=== PATIENT | male | born 1970 | race Caucasian/White ===

== ENCOUNTER 2017-09-03 21:06 | Emergency (ER) | payer MEDICAID ==
[2017-09-03 21:24] VITALS: BP 144/88; PULSE 101; RESP 16; TEMP 99.5; O2SAT 97
--- NOTE | 2017-09-03 21:30 | EDPHY ---
H & P Time Seen by Provider: 09/03/17 21:11 HPI/ROS: CHIEF COMPLAINT: Leg infection HISTORY OF PRESENT ILLNESS: Patient is a 46-year-old male with a history of diabetes and homeless who presents emergency department with a right leg infection. Patient states he has noticed some mild pain on his right calf. Today when he arrived showed 3 lifted up his pant leg and saw an area of redness. This is painful to touch. He denies any recent trauma. He does not recall insect bite. He denies fevers or chills. REVIEW OF SYSTEMS: My complete review of systems is negative except as mentioned in the HPI. Past Medical/Surgical History: Includes diabetes, [place] embolus Past surgical history: Includes [place] filter placement Social history: The patient is homeless Physical Exam: Vitals noted General Appearance: Alert and no distress. Head: Pupils equal. Normal. Respiratory: No respiratory distress. Cardiac: regular rate and rhythm. Extremities: Full range of motion, normal appearing. Skin: The patient has a quarter-size area of erythema on his right calf. There is all punctate lesion in the center. There is no palpable fluctuance. No streaking up the leg. It is mildly warm to touch. Neuro: Alert. Normal mood and affect. Constitutional: Initial Vital Signs Temperature (C) 37.5 C 09/03/17 21:18 Heart Rate 101 H 09/03/17 21:18 Respiratory Rate 16 09/03/17 21:18 Blood Pressure 144/88 H 09/03/17 21:18 O2 Sat (%) 97 09/03/17 21:18 O2 Delivery Mode Room Air Allergies/Adverse Reactions: No Known Allergies Allergy (Unverified 09/03/17 21:15) Home Medications: Medication Instructions Recorded Cephalexin [Keflex (*)] 500 mg PO QID 10 Days cap 09/03/17 Sulfamethox/Tmp 800/160 mg 1 tab PO BID #20 tab 09/03/17 [Bactrim Ds] Medical Decision Making ED Course/Re-evaluation: I discussed possible etiologies with the patient. I answered all his questions. At this time I do not feel he needs the area I&D. The patient will be given dose of Bactrim and Keflex. He will be given prescriptions for both. He is given warnings prior to leaving. He will return with worsening symptoms. Differential Diagnosis: My differential includes but is not limited to cellulitis, abscess, bug bite, bacteremia, sepsis Departure - Departure Disposition: Home, Routine, Self-Care Clinical Impression: Cellulitis Qualifiers: Site of cellulitis: extremity Site of cellulitis of extremity: lower extremity Laterality: right Qualified Code(s): L03.115 - Cellulitis of right lower limb Condition: Good Instructions: Cellulitis (ED) Additional Instructions: Take your course of antibiotics. Return with increasing redness, swelling, pain , fever or any other concerns. Referrals: [facility],. [Clinic] - 3-4 days, if not improved Prescriptions: Cephalexin [Keflex (*)] 500 mg PO QID 10 Days cap Sulfamethox/Tmp 800/160 mg [Bactrim Ds] 1 tab PO BID #20 tab
[2017-09-03] MEDS ORDERED: CEPHALEXIN 500MG PREPACK#4 BTL TAKEHOME ONE (21:40)
[2017-09-03] MEDS ORDERED: SULFAMET/TMP DS PREPACK#2 BTL TAKEHOME ONE (21:41)
== END 2017-09-03 21:59 | disposition home or self-care (01) ==
DX: L03.115 Cellulitis of right lower limb (principal); E11.9 Type 2 diabetes mellitus without complications

== ENCOUNTER 2017-12-13 07:57 | Emergency (ER) | payer MEDICAID ==
[2017-12-13 08:01] VITALS: BP 132/84
[2017-12-13] MEDS ORDERED: CEPHALEXIN 500 MG CAP PO ONE (08:05)
--- NOTE | 2017-12-13 08:05 | EDPHY ---
H & P Time Seen by Provider: 12/13/17 08:02 HPI/ROS: CHIEF COMPLAINT: Hand pain HISTORY OF PRESENT ILLNESS: Patient is a 46-year-old male who presents to the emergency department in the custody of police. The patient states that his right hand is red from a spider bite. He states he has been that way for couple of days. He is concerned he has an infection. No fevers or chills. Patient previously had an infection in his right index finger which required lancing. The patient reports being a diabetic but not on any medication. EMS reports the glucose is 131. REVIEW OF SYSTEMS: My complete review of systems is negative except as mentioned in the HPI. Past Medical/Surgical History: Includes diabetes, hand infection Social history: Patient is homeless Smoking Status: Current some day smoker Physical Exam: Vitals noted GENERAL: No acute distress, alert. Interactive HEENT: Eyes normal to inspection, normal pharynx, no signs of dehydration. NECK: [No lymphadenopathy, supple. RESPIRATORY: Clear to auscultation bilaterally, no rales, rhonchi or wheezing. CVS: Regular rate and rhythm, no rubs, murmurs, or gallops. ABDOMEN: Soft, nontender, nondistended, no organomegaly. BACK: Normal to inspection, no CVA tenderness. SKIN: Normal color, no rash, warm, dry. No pallor. EXTREMITIES: No pedal edema, no calf tenderness, no Homans sign or cords, no joint swelling. Patient's right hand has mild swelling over the dorsal aspect. There is a small punctate lesion. There is no streaking up his arm. Patient has no discomfort with movement of his fingers. His fingers are of normal caliber in size. I doubt deep space infection. NEURO/PSYCH: Alert and oriented, normal mood and affect, normal motor sensory exam. Constitutional: Initial Vital Signs Temperature (C) 37.0 C 12/13/17 07:59 Heart Rate 94 12/13/17 07:59 Respiratory Rate 16 12/13/17 07:59 Blood Pressure 132/84 H 12/13/17 07:59 O2 Sat (%) 97 12/13/17 07:59 O2 Delivery Mode Room Air Allergies/Adverse Reactions: No Known Allergies Allergy (Unverified 12/13/17 07:59) Home Medications: Medication Instructions Recorded Cephalexin [Keflex (*)] 500 mg PO QID 7 Days cap 12/13/17 Medical Decision Making ED Course/Re-evaluation: In the emergency department I met EMS on arrival. I took report from the paramedics and the patient. I discussed the findings with the patient. He denies any allergies to antibiotics. I do not feel he needs surgical intervention at this time. Appropriate treatment will be with antibiotics. He was given Keflex 500 mg orally. He is given a prescription of Keflex prior to leaving. He was discharged with police. Differential Diagnosis: My differential includes but is not limited to cellulitis, abscess, deep tissue infection, bacteremia, sepsis, DKA, hyperglycemia Departure - Departure Disposition: Home, Routine, Self-Care Clinical Impression: Cellulitis of hand Condition: Good Instructions: Cellulitis (ED) Additional Instructions: Take the entire course of antibiotics. Return with increasing redness, swelling , pain, fever or any other concerns. Referrals: Patient,NotPresent [Primary Care Provider] - As per Instructions Prescriptions: Cephalexin [Keflex (*)] 500 mg PO QID 7 Days cap
== END 2017-12-13 08:30 | disposition home or self-care (01) ==
LOC: MERGE 07:57 → EDBD 07:57
DX: L03.113 Cellulitis of right upper limb (principal); E11.9 Type 2 diabetes mellitus without complications; F17.200 Nicotine dependence, unspecified, uncomplicated

== ENCOUNTER 2018-04-28 00:15 | Inpatient (IN) | payer MEDICAID ==
[2018-04-28] MEDS ORDERED: HYDROCODONE/APAP 5/325 TAB PO ONE (01:22)
[2018-04-28] MEDS ORDERED: IBUPROFEN 200 MG TAB PO ONE (01:22)
[2018-04-28] MEDS ORDERED: CEPHALEXIN 500 MG CAP PO ONE (01:30)
[2018-04-28] MEDS ORDERED: SULFAMETHOX/TMP 800/160 MG 1 TAB PO ONE (01:30)
--- NOTE | 2018-04-28 01:35 | EDPHY ---
H & P Stated Complaint: L ankle swelling/pain Time Seen by Provider: 04/28/18 01:16 HPI/ROS: HPI The patient presents with left ankle pain and swelling which has been present for the last almost 2 weeks. He was in an accident in which she injured his heel on at a kickstand. I saw him in the emergency department for this on April 15. Since then, he says he has not really healed completely and has had ongoing pain. He noticed a blister forming on his medial heel which became whitish in color today with increasing pain so he came into the emergency department. He reports that the pain is traveling up his leg currently. He has not had any fevers or chills, nausea or vomiting.. REVIEW OF SYSTEMS Constitutional: No fever, no chills. Eyes: No discharge. ENT: No sore throat. Cardiovascular: No chest pain, no palpitations. Respiratory: No cough, no shortness of breath. Gastrointestinal: No abdominal pain, no vomiting. Genitourinary: No hematuria. Musculoskeletal: No back pain. Skin: No rashes. Neurological: No headache. PMHx: Factor 5 Leiden deficiency, history of diabetes Soc Hx: Homeless PHYSICAL General Appearance: Alert, no distress Eyes: Pupils equal and round no pallor or injection ENT, Mouth: Mucous membranes moist Respiratory: There are no retractions, lungs are clear to auscultation Cardiovascular: Regular rate and rhythm Gastrointestinal: Abdomen is soft and non-tender, no masses, bowel sounds normal Neurological: A&O, moves all extremities Skin: Warm and dry, no rashes Musculoskeletal: Neck is supple non tender Extremities: Left ankle medial aspect there is a 4 x 4 cm bullae with whitish discoloration that extends distally to the plantar surface of the medial heel which is tender to palpation, there is a smaller amount of surrounding deep erythema with no lymphangitis extricating or redness or swelling of the leg Psychiatric: Patient is oriented X 3, there is no agitation Source: Patient Exam Limitations: No limitations - Personal History Current Tetanus/Diphtheria Vaccine: Yes Tetanus Vaccine Date: 2015 - Medical/Surgical History Hx Asthma: No Hx Chronic Respiratory Disease: No Hx Diabetes: Yes Hx Cardiac Disease: No Hx Renal Disease: No Hx Cirrhosis: No Hx Alcoholism: No Hx HIV/AIDS: No Hx Splenectomy or Spleen Trauma: No Other PMH: DM, PE, [place] FILTER LIKE IVC - Social History Smoking Status: Heavy smoker Constitutional: Initial Vital Signs Temperature (C) 37.2 C 04/28/18 00:17 Heart Rate 108 H 04/28/18 00:17 Respiratory Rate 20 04/28/18 00:17 Blood Pressure 124/88 H 04/28/18 00:17 O2 Sat (%) 96 04/28/18 00:17 O2 Delivery Mode Room Air Allergies/Adverse Reactions: No Known Allergies Allergy (Verified 04/15/18 05:18) Home Medications: Medication Instructions Recorded NK [No Known Home Meds] 04/15/18 Medical Decision Making - Diagnostics Imaging Results: Foot x-ray three views shows no fracture, no dislocation, interpreted by me, radiology interpretation is pending. Imaging: I viewed and interpreted images myself Differential Diagnosis: 47-year-old homeless man with history of diabetes, factor 5 Leiden deficiency presents with left heel pain. Initially, he injured his leg with a kickstand about 12 days ago. I obtained x-rays at that time which were unremarkable. He did have some abrasions to his skin and now has what appears to be an infected bullae. In the emergency department, I unroofed the bullae and large amount of pus with clear fluid was removed. I am treating his pain and will give him p.o. Antibiotics. Labs were checked in the emergency department and did reveal leukocytosis as well as hyperglycemia with blood sugar in the 400s. This makes me more concerned for a diabetic wound infection. The patient has insulin-dependent diabetes though has not been on insulin due to homelessness since July of 2017. I have ordered IV fluids, vancomycin, I have performed a wound culture and will check an ESR. X-ray does not show any fracture or obvious osteomyelitis. I will admit the patient to the hospitalist service and have discussed the case with Dr. Lockwood. - Data Points Laboratory Results: Laboratory Results 04/28/18 03:52 04/28/18 02:30 04/28/18 04/28/18 04/28/18 03:52 02:30 02:30 WBC RBC Hgb Hct 38.2 % L % (40.0-51.0) MCV MCH MCHC RDW Plt Count MPV Neut % (Auto) Lymph % (Auto) [place] % (Auto) Eos % (Auto) Baso % (Auto) Nucleat RBC Rel Count Absolute Neuts (auto) Absolute Lymphs (auto) Absolute Monos (auto) Absolute Eos (auto) Absolute Basos (auto) Absolute Nucleated RBC Immature Gran % Immature Gran # ESR 47 MM/HR H MM/HR (0-15) Sodium 132 mEq/L L mEq/L (135-145) Potassium 4.0 mEq/L mEq/L (3.3-5.0) Chloride 96 mEq/L L mEq/L (97-110) Carbon Dioxide 25 mEq/l mEq/l (22-31) Anion Gap 11 mEq/L mEq/L (8-16) BUN 13 mg/dL mg/dL (7-23) Creatinine 0.6 mg/dL L mg/dL (0.7-1.3) Estimated GFR > 60 Glucose 452 mg/dL H mg/dL (70-100) Hemoglobin A1c Pending Estim Average Glucose Pending Calcium 8.9 mg/dL mg/dL (8.5-10.4) 04/28/18 02:30 WBC 15.25 10^3/uL H 10^3/uL (3.80-9.50) RBC 4.23 10^6/uL L 10^6/uL (4.40-6.38) Hgb 13.2 g/dL L g/dL (13.7-17.5) Hct 37.9 % L % (40.0-51.0) MCV 89.6 fL fL (81.5-99.8) MCH 31.2 pg pg (27.9-34.1) MCHC 34.8 g/dL g/dL (32.4-36.7) RDW 11.8 % % (11.5-15.2) Plt Count 279 10^3/uL 10^3/uL (150-400) MPV 9.4 fL fL (8.7-11.7) Neut % (Auto) 75.5 % H % (39.3-74.2) Lymph % (Auto) 17.0 % % (15.0-45.0) [place] % (Auto) 6.7 % % (4.5-13.0) Eos % (Auto) 0.3 % L % (0.6-7.6) Baso % (Auto) 0.2 % L % (0.3-1.7) Nucleat RBC Rel Count 0.0 % % (0.0-0.2) Absolute Neuts (auto) 11.51 10^3/uL H 10^3/uL (1.70-6.50) Absolute Lymphs (auto) 2.59 10^3/uL 10^3/uL (1.00-3.00) Absolute Monos (auto) 1.02 10^3/uL H 10^3/uL (0.30-0.80) Absolute Eos (auto) 0.05 10^3/uL 10^3/uL (0.03-0.40) Absolute Basos (auto) 0.03 10^3/uL 10^3/uL (0.02-0.10) Absolute Nucleated RBC 0.00 10^3/uL 10^3/uL (0-0.01) Immature Gran % 0.3 % % (0.0-1.1) Immature Gran # 0.05 10^3/uL 10^3/uL (0.00-0.10) ESR Sodium Potassium Chloride Carbon Dioxide Anion Gap BUN Creatinine Estimated GFR Glucose Hemoglobin A1c Estim Average Glucose Calcium Medications Given: Discontinued Medications Hydrocodone Bitart/Acetaminophen ([place] 5/325) 2 tab PO EDNOW ONE Stop: 04/28/18 01:23 Last Admin: 04/28/18 01:43 Dose: 2 tab Cephalexin HCl (Keflex) 500 mg PO EDNOW ONE PRN Reason: Protocol Stop: 04/28/18 01:31 Last Admin: 04/28/18 01:43 Dose: 500 mg Sodium Chloride (Ns) 1,000 mls @ 0 mls/hr IV EDNOW ONE; Wide Open PRN Reason: Protocol Stop: 04/28/18 03:32 Last Admin: 04/28/18 04:18 Dose: 1,000 mls Vancomycin HCl 1.5 gm/ Sodium (Chloride) 250 mls @ 166.67 mls/hr IV EDNOW ONE PRN Reason: Protocol Stop: 04/28/18 05:59 Last Admin: 04/28/18 04:50 Dose: 250 mls Sodium Chloride (Ns) 1,000 mls @ 0 mls/hr IV ONCE ONE PRN Reason: Wide Open Stop: 04/28/18 04:34 Last Admin: 04/28/18 05:07 Dose: 1,000 mls Ibuprofen (Motrin) 400 mg PO EDNOW ONE Stop: 04/28/18 01:23 Last Admin: 04/28/18 01:44 Dose: 400 mg Insulin Human Regular (Humulin R) 10 unit IVP EDNOW ONE Stop: 04/28/18 03:33 Last Admin: 04/28/18 04:18 Dose: 10 unit Trimethoprim/Sulfamethoxazole (Bactrim Ds) 1 ea PO EDNOW ONE PRN Reason: Protocol Stop: 04/28/18 01:31 Last Admin: 04/28/18 01:43 Dose: 1 ea Departure - Departure Disposition: [facility] Clinical Impression: Diabetic foot infection, Hyperglycemia, Leukocytosis Condition: Fair
[2018-04-28 02:44] LABS: PLATELET COUNT 279 10^3/uL (150-400)
[2018-04-28] MEDS ORDERED: NS 1,000 ML IV ONE ×2 (03:31→04:33)
[2018-04-28] MEDS ORDERED: VANCOMYCIN 1.5 GM in D5W 250 ML IV ONE (03:32)
[2018-04-28] MEDS ORDERED: INSULIN REGULAR HUMAN 100 UNIT/ML UNIT IVP ONE (03:32)
[2018-04-28] MEDS ORDERED: VANCOMYCIN 1.5 GM in NS 250 ML IV ONE (04:30)
[2018-04-28] MEDS ORDERED: ONDANSETRON DISINTEGRATING 4 MG TAB PO PRN (04:30)
[2018-04-28] MEDS ORDERED: ONDANSETRON 4 MG/2 ML VIAL IVP PRN (04:30)
[2018-04-28] MEDS ORDERED: D50W 25 GM/50 ML VIAL IVP PRN (04:32)
--- NOTE | 2018-04-28 05:44 | PDGENHP ---
History and Physical - Chief Complaint Foot pain - History of Present Illness 47 yo M w/ DM and FVL presents with L foot pain. Patient developed a blister near his L heel about a week ago. Over the last few days this has become red and painful. He came to the ED for evaluation as a result. The patient has history of diabetes, which he use to treat with insulin. He thinks his previous regimen was insulin 70/30 25 units nightly. He has not had insulin for about a year due to moving here from [place] and not having a doctor. Additionally, he has a history of Factor V Leiden with multiple prior blood clots per his report. He has an IVC filter that was placed in 2005. He has not been on warfarin for 1 year due to not having a regular doctor. Case discussed with ED physician Dr. Childs, records reviewed in EMR. History Information - Allergies/Home Medication List Allergies/Adverse Reactions: No Known Allergies Allergy (Verified 04/15/18 05:18) Home Medications: NK [No Known Home Meds] 04/15/18 [Last Taken Unknown] I have personally reviewed and updated: family history, medical history - Past Medical History diabetes type 2 Additional medical history: FVL - Surgical History Additional surgical history: IVC filter placed in 2005 - Family History Additional family history: FVL - Social History Smoking Status: Heavy smoker Review of Systems Review of Systems: ROS: 10pt was reviewed & negative except for what was stated in HPI & below Physical Exam Physical Exam: Temp Pulse Resp BP Pulse Ox 37.2 C 75 18 94/60 L 95 04/28/18 00:17 04/28/18 05:03 04/28/18 05:03 04/28/18 05:03 04/28/18 05:03 Constitutional: uncomfortable, unkempt Eyes: PERRL, EOMI Ears, Nose, Mouth, Throat: moist mucous membranes, no oral mucosal ulcers Cardiovascular: regular rate and rhythym, no murmur, rub, or gallop, No edema Respiratory: no respiratory distress, clear to auscultation Gastrointestinal: normoactive bowel sounds, soft, non-tender abdomen Skin: warm, erythema (L foot near heel) Musculoskeletal: full muscle strength, no muscle tenderness Neurologic: AAOx3, CN II-XII Intact Psychiatric: interacting appropriately, not anxious Lab Data & Imaging Review 04/28/18 03:52 04/28/18 02:30 WBC 15.25 10^3/uL (3.80-9.50) H 04/28/18 02:30 RBC 4.23 10^6/uL (4.40-6.38) L 04/28/18 02:30 Hgb 13.2 g/dL (13.7-17.5) L 04/28/18 02:30 Hct 38.2 % (40.0-51.0) L 04/28/18 03:52 MCV 89.6 fL (81.5-99.8) 04/28/18 02:30 MCH 31.2 pg (27.9-34.1) 04/28/18 02:30 MCHC 34.8 g/dL (32.4-36.7) 04/28/18 02:30 RDW 11.8 % (11.5-15.2) 04/28/18 02:30 Plt Count 279 10^3/uL (150-400) 04/28/18 02:30 MPV 9.4 fL (8.7-11.7) 04/28/18 02:30 Neut % (Auto) 75.5 % (39.3-74.2) H 04/28/18 02:30 Lymph % (Auto) 17.0 % (15.0-45.0) 04/28/18 02:30 [place] % (Auto) 6.7 % (4.5-13.0) 04/28/18 02:30 Eos % (Auto) 0.3 % (0.6-7.6) L 04/28/18 02:30 Baso % (Auto) 0.2 % (0.3-1.7) L 04/28/18 02:30 Nucleat RBC Rel Count 0.0 % (0.0-0.2) 04/28/18 02:30 Absolute Neuts (auto) 11.51 10^3/uL (1.70-6.50) H 04/28/18 02:30 Absolute Lymphs (auto) 2.59 10^3/uL (1.00-3.00) 04/28/18 02:30 Absolute Monos (auto) 1.02 10^3/uL (0.30-0.80) H 04/28/18 02:30 Absolute Eos (auto) 0.05 10^3/uL (0.03-0.40) 04/28/18 02:30 Absolute Basos (auto) 0.03 10^3/uL (0.02-0.10) 04/28/18 02:30 Absolute Nucleated RBC 0.00 10^3/uL (0-0.01) 04/28/18 02:30 Immature Gran % 0.3 % (0.0-1.1) 04/28/18 02:30 Immature Gran # 0.05 10^3/uL (0.00-0.10) 04/28/18 02:30 ESR 47 MM/HR (0-15) H 04/28/18 03:52 Sodium 132 mEq/L (135-145) L 04/28/18 02:30 Potassium 4.0 mEq/L (3.3-5.0) 04/28/18 02:30 Chloride 96 mEq/L (97-110) L 04/28/18 02:30 Carbon Dioxide 25 mEq/l (22-31) 04/28/18 02:30 Anion Gap 11 mEq/L (8-16) 04/28/18 02:30 BUN 13 mg/dL (7-23) 04/28/18 02:30 Creatinine 0.6 mg/dL (0.7-1.3) L 04/28/18 02:30 Estimated GFR > 60 04/28/18 02:30 Glucose 452 mg/dL (70-100) H 04/28/18 02:30 Calcium 8.9 mg/dL (8.5-10.4) 04/28/18 02:30 Assessment & Plan Assessment: 47 yo M w/ DM and FVL presents with L foot cellulitis. Plan: 1. L foot cellulitis - Developed a blister in the area and then became infected. This was likely complicated by uncontrolled blood sugar. Elevated WBC and tachycardia are signs of systemic infectious involvement. - Vancomycin IV - Blood cultures pending - Continue IVF - Control BG as below 2. DM - Has not been on treatment for >1 year due to not having a doctor after moving here from [place]. BG>400 on admission, no anion gap. - SSI lispro standard protocol initially, add basal if indicated - BG checks ACHS, D50 IV PRN for hypoglycemia - Check A1c 3. FVL - With history of multiple prior blood clots and an IVC filter placed in 2005, which was never removed. He has been off of warfarin for about a year. - Restart daily warfarin - Will not bridge for now noting no AC for 1 year and no signs of acute blood clot - Daily INR Diet - Regular Code - Full Ppx - LMWH, warfarin Dispo - Admit under observation status
[2018-04-28] MEDS: ACETAMINOPHEN 325 MG TAB PO PRN ×2 (07:42→12:49)
[2018-04-28] MEDS: INSULIN LISPRO 100 UNIT/ML SC SCH ×3 (07:47→18:15)
[2018-04-28] MEDS ORDERED: PNEUMOCOCCAL 0.5ML VACCINE VIAL IM ONE (07:49)
[2018-04-28] MEDS: ENOXAPARIN 40 MG/0.4 ML SYR SC SCH (08:56)
[2018-04-28] MEDS ORDERED: VANCOMYCIN 1.25 GM in NS 250 ML IV SCH ×2 (09:30→17:00)
--- NOTE | 2018-04-28 09:52 | WOCRNPDOC ---
WOCRN Advanced Assessment Note - Skin Integrity Problem, Advanced Assess Left Medial Ankle Dressing Type: Open to Air Site Measurement - Head-to-Toe Length X Width X Depth (cm): 6x4x0 Skin Integrity Problem Comment: Blister lanced in ED, however roof left intact. Discussed care with Dr. Prabhakar as wound RN is unsure whether to de roof blister as patient is homeless and care will be difficult. Also diabetic and risk of infection is high. Per RN Betty patient is refusing to have blister deroofed at this time.
--- NOTE | 2018-04-28 13:56 | HOSPPROG ---
Hospitalist Progress Note Assessment/Plan: 47 yo M w/ DM and FVL presents with L foot cellulitis. Plan: 1. L foot cellulitis - Developed a blister in the area and then became infected. This was likely complicated by uncontrolled blood sugar. Elevated WBC and tachycardia are signs of systemic infectious involvement. - Vancomycin IV - Blood cultures pending - Continue IVF - Control BG as below - Wound care to deroof tomorrow 2. DM - Has not been on treatment for >1 year due to not having a doctor after moving here from [place]. BG>400 on admission, no anion gap. - SSI lispro standard protocol initially, added 70/30 15 units BID, was previously on 25 units, uptitrate as needed - BG checks ACHS, D50 IV PRN for hypoglycemia - Check A1c 3. FVL - With history of multiple prior blood clots and an IVC filter placed in 2005, which was never removed. He has been off of warfarin for about a year. - Restarted daily warfarin - Will not bridge for now noting no AC for 1 year and no signs of acute blood clot - Daily INR Diet - Regular Code - Full Ppx - LMWH, warfarin Dispo - Pending clinical course Subjective: Patient reports 8/10 pain in foot with tingling and burning sensation Objective: Vital Signs Temp Pulse Resp BP Pulse Ox 36.6 C 76 16 112/77 95 04/28/18 05:52 04/28/18 05:52 04/28/18 05:52 04/28/18 06:30 04/28/18 05:52 04/27/18 04/28/18 04/29/18 05:59 05:59 05:59 Intake Total 1000 1250 Balance 1000 1250 - Physical Exam Constitutional: no apparent distress, uncomfortable Eyes: PERRL Ears, Nose, Mouth, Throat: moist mucous membranes Cardiovascular: regular rate and rhythym Respiratory: no respiratory distress Gastrointestinal: soft, non-tender abdomen Genitourinary: no bladder fullness Skin: warm, pressure ulcer Musculoskeletal: no muscle tenderness Neurologic: AAOx3 Psychiatric: interacting appropriately Lymph, Heme, Immunologic: No ecchymoses, No petechiae ICD10 Worksheet Patient Problems: Problems Problem Status Onset Diabetic foot infection Acute Hyperglycemia Acute Leukocytosis Acute
[2018-04-28] MEDS: IBUPROFEN 600 MG TAB PO PRN ×2 (14:34→21:22)
--- NOTE | 2018-04-28 15:10 | ASMTCMCOM ---
CM Note CM Note Notes: Pts case discussed in tx rounds. Pt is a 47 y/o homeless man admitted for a diabetic foot infection and hyperglycemia. Pt has not been taking his warfarin. Pt moved here [place]. Pt is currently on ivabx. Needs are TBD at this time. Pt is being followed by wound care. Plan: TBD Date Signed: 04/28/2018 03:09 PM Electronically Signed By:GIRMA Kemp
[2018-04-28] MEDS ORDERED: WARFARIN SODIUM 5 MG TAB PO ONE (16:00)
[2018-04-28] MEDS: VANCOMYCIN 1.25 GM in NS 250 ML IV SCH (17:02)
[2018-04-28] MEDS: INSULIN 70/30 HUMAN 100 UNIT/ML SYR SC SCH (18:16)
[2018-04-29 04:38] LABS: INR 0.94 (0.83-1.16); PROTIME(PATIENT) 12.8 SEC (12.0-15.0)
[2018-04-29] MEDS: VANCOMYCIN 1.25 GM in NS 250 ML IV SCH ×2 (05:19→18:09)
[2018-04-29] MEDS: INSULIN LISPRO 100 UNIT/ML SC SCH ×3 (09:28→18:26)
[2018-04-29] MEDS: INSULIN 70/30 HUMAN 100 UNIT/ML SYR SC SCH (09:28)
[2018-04-29] MEDS: IBUPROFEN 600 MG TAB PO PRN ×2 (09:28→18:08)
[2018-04-29] MEDS: ENOXAPARIN 40 MG/0.4 ML SYR SC SCH (09:29)
--- NOTE | 2018-04-29 10:46 | HOSPPROG ---
Hospitalist Progress Note Assessment/Plan: 47 yo M w/ DM and FVL presents with L foot cellulitis. Plan: 1. L foot cellulitis - Developed a blister in the area and then became infected. This was likely complicated by uncontrolled blood sugar. Elevated WBC and tachycardia are signs of systemic infectious involvement. - Vancomycin IV - Blood cultures pending - Control BG as below - Wound care to deroof today 2. DM - Has not been on treatment for >1 year due to not having a doctor after moving here from [place]. BG>400 on admission, no anion gap. - SSI lispro standard protocol initially - Added 70/30 15 units BID, was previously on 25 units, uptitrate as needed - BG checks ACHS, D50 IV PRN for hypoglycemia - A1c 15, discussed potential complications from chronic uncontrolled diabetes including retinopathy, nephropathy, neuropathy 3. FVL - With history of multiple prior blood clots and an IVC filter placed in 2005, which was never removed. He has been off of warfarin for about a year. - Restarted daily warfarin - Will not bridge for now noting no AC for 1 year and no signs of acute blood clot - Daily INR Diet - Regular Code - Full Ppx - LMWH, warfarin Dispo - Pending clinical course Subjective: Patient reports some improving pain and swelling of infected foot Objective: Vital Signs Temp Pulse Resp BP Pulse Ox 37.1 C 68 16 120/72 98 04/29/18 09:00 04/29/18 09:00 04/29/18 09:00 04/29/18 09:00 04/29/18 09:00 Laboratory Results 04/29/18 04:05 04/29/18 04:05 04/28/18 04/29/18 04/30/18 05:59 05:59 05:59 Intake Total 1000 2000 Balance 1000 2000 PT 12.8 SEC (12.0-15.0) 04/29/18 04:05 INR 0.94 (0.83-1.16) 04/29/18 04:05 - Physical Exam Constitutional: no apparent distress, unkempt Eyes: PERRL Ears, Nose, Mouth, Throat: moist mucous membranes Cardiovascular: regular rate and rhythym Respiratory: no respiratory distress Gastrointestinal: soft, non-tender abdomen Genitourinary: no bladder fullness Skin: no fluctuance, erythema, pressure ulcer Musculoskeletal: full muscle strength Neurologic: AAOx3 Psychiatric: interacting appropriately Lymph, Heme, Immunologic: No ecchymoses, No petechiae ICD10 Worksheet Patient Problems: Problems Problem Status Onset Diabetic foot infection Acute Hyperglycemia Acute Leukocytosis Acute
[2018-04-29] MEDS: NICOTINE 21 MG/24 HR PATCH TD SCH (12:19)
--- NOTE | 2018-04-29 14:13 | ASMTCMCOM ---
CM Note CM Note Notes: Pts case discussed in tx rounds. Pt is positive for MRSA. Pt is on contact precaution. Pt is currently getting ivabx. CM made a referral to [facility] [place]. CM made w/ an appointment at [facility] on 05/05/18 at 10:40AM. Pt will need to have his INRs checked. Pt reports that he doesn't stay at the half-way because his son is under 18. Apparently, you have to be 21+ to stay at the half-way. Pt has been to [facility] in the past and did not have a good experience. Pt wanted CM to look into [place] [facility] [facility] for 1-800-DOCT[facility]. CM printed out resources for pt. CM to follow for d/c needs. Plan: Independent Date Signed: 04/29/2018 02:12 PM Electronically Signed By:GIRMA Kemp
--- NOTE | 2018-04-29 14:29 | PDMN ---
Medical Necessity Medical necessity: Change to IP, as of 04/29/18, per MD & MCG M-70; los >2 mn for ongoing management of L foot cellulitis complicated by uncontrolled blood sugars w/tachycardia & elevated WBC; cxs pending; requiring further monitoring, IV abx & wound care; hx uncontrolled diabetes (A1c 15), Factor V Leiden w/ multiple blood clots & IVC filter in place-not on AC & homelessness
[2018-04-29] MEDS ORDERED: WARFARIN SODIUM 5 MG TAB PO SCH (16:00)
[2018-04-29] MEDS: VANCOMYCIN 1.5 GM in NS 250 ML IV SCH (18:08)
[2018-04-29] MEDS: INSULIN GLARGINE 100 UNITS/ML UNIT SC SCH (21:28)
[2018-04-30] MEDS: IBUPROFEN 600 MG TAB PO PRN ×3 (04:11→17:50)
[2018-04-30 05:08] LABS: INR 0.98 (0.83-1.16); PROTIME(PATIENT) 13.2 SEC (12.0-15.0)
[2018-04-30] MEDS: VANCOMYCIN 1.5 GM in NS 250 ML IV SCH ×2 (05:21→17:50)
[2018-04-30] MEDS: NICOTINE 21 MG/24 HR PATCH TD SCH (09:16)
[2018-04-30] MEDS: ACETAMINOPHEN 325 MG TAB PO PRN ×2 (09:17→15:10)
[2018-04-30] MEDS: ENOXAPARIN 40 MG/0.4 ML SYR SC SCH (09:17)
[2018-04-30] MEDS: INSULIN LISPRO 100 UNIT/ML SC SCH ×3 (09:18→17:56)
--- NOTE | 2018-04-30 10:32 | HOSPPROG ---
Hospitalist Progress Note Assessment/Plan: 47 yo M w/ DM and FVL presents with L foot cellulitis. Plan: 1. L foot cellulitis - Developed a blister in the area and then became infected. This was likely complicated by uncontrolled blood sugar. Elevated WBC and tachycardia are signs of systemic infectious involvement. - Wound culture growing MRSA, continue Vancomycin IV - Blood cultures NGTD - Control BG as below - Wound care following, if not continuing to improve, consider surgical consult to evaluate 2. DM - Has not been on treatment for >1 year due to not having a doctor after moving here from [place]. BG>400 on admission, no anion gap. - SSI lispro standard protocol initially - Switched from 70/30 Insulin to Lantus 30 units qHS yesterday due to labile BG - BG checks ACHS, D50 IV PRN for hypoglycemia - A1c 15, discussed potential complications from chronic uncontrolled diabetes including retinopathy, nephropathy, neuropathy 3. FVL - With history of multiple prior blood clots and an IVC filter placed in 2005, which was never removed. He has been off of warfarin for about a year. - Restarted daily warfarin - Will not bridge for now noting no AC for 1 year and no signs of acute blood clot - Daily INR Diet - Regular Code - Full Ppx - LMWH, warfarin Dispo - Pending clinical course, possible transition to PO Abx for MRSA tomorrow Subjective: Patient reports pain in his foot today after walking to bathroom Objective: Vital Signs Temp Pulse Resp BP Pulse Ox 36.6 C 63 16 125/82 H 97 04/30/18 08:00 04/30/18 08:00 04/30/18 08:00 04/30/18 08:00 04/30/18 08:00 04/29/18 04/30/18 05/01/18 05:59 05:59 05:59 Intake Total 2260 Balance 2260 PT 13.2 SEC (12.0-15.0) 04/30/18 04:28 INR 0.98 (0.83-1.16) 04/30/18 04:28 - Physical Exam Constitutional: no apparent distress Eyes: PERRL Ears, Nose, Mouth, Throat: moist mucous membranes Cardiovascular: regular rate and rhythym Respiratory: no respiratory distress, clear to auscultation Gastrointestinal: soft, non-tender abdomen Genitourinary: No lee in urethra Skin: warm, no fluctuance, pressure ulcer Musculoskeletal: full muscle strength Neurologic: AAOx3 Psychiatric: interacting appropriately Lymph, Heme, Immunologic: No ecchymoses, No petechiae ICD10 Worksheet Patient Problems: Problems Problem Status Onset Diabetic foot infection Acute Hyperglycemia Acute Leukocytosis Acute
[2018-04-30] MEDS ORDERED: WARFARIN SODIUM 5 MG TAB PO ONE (16:00)
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
[2018-04-30] MEDS: INSULIN GLARGINE 100 UNITS/ML UNIT SC SCH (23:14)
[2018-05-01] MEDS ORDERED: HYDROCODONE/APAP 5/325 TAB PO PRN (01:27)
[2018-05-01] MEDS: HYDROCODONE/APAP 5/325 TAB PO PRN ×3 (01:35→20:05)
[2018-05-01 06:16] LABS: INR 1.06 (0.83-1.16)
[2018-05-01] MEDS ORDERED: VANCOMYCIN 1.75 GM in D5W 500 ML IV SCH (07:00)
[2018-05-01] MEDS: VANCOMYCIN 1.5 GM in NS 250 ML IV SCH (07:06)
[2018-05-01] MEDS: INSULIN LISPRO 100 UNIT/ML SC SCH ×3 (09:27→18:25)
[2018-05-01] MEDS: ENOXAPARIN 40 MG/0.4 ML SYR SC SCH (09:29)
[2018-05-01] MEDS: NICOTINE 21 MG/24 HR PATCH TD SCH (09:29)
--- NOTE | 2018-05-01 13:01 | HOSPPROG ---
Hospitalist Progress Note Assessment/Plan: #Left foot cellulitis: blister de-roofed in ER. Healing well. Place dressing today. Change to Doxycycline. Elevate #DM with uncontrolled hyperglycemia: A1c 15%. Increase Glargine, SSI #Factor 5 deficiency: bridge with Lovenox #Homelessness: has provided resources. Has decline [facility]. #Disp: cont inpatient admission for abx, pain control. High-risk for reinfection with uncontrolled sugars and homelessness Subjective: pain in bottom of foot Objective: Vital Signs Temp Pulse Resp BP Pulse Ox 36.6 C 62 14 119/71 96 05/01/18 08:00 05/01/18 08:00 05/01/18 08:00 05/01/18 08:00 05/01/18 08:00 Laboratory Results 05/01/18 05:35 05/01/18 05:35 04/30/18 05/01/18 05/02/18 05:59 05:59 05:59 Intake Total 2260 1640 Balance 2260 1640 PT 14.0 SEC (12.0-15.0) 05/01/18 05:35 INR 1.06 (0.83-1.16) 05/01/18 05:35 - Time Spent With Patient Time Spent with Patient: greater than 35 minutes Time Spent with Patient: Greater than 35 minutes spent on this patients care, greater than 50% of time spent counseling, educating, and coordinating care regarding the above mentioned plan. - Physical Exam Constitutional: no apparent distress Eyes: PERRL Ears, Nose, Mouth, Throat: moist mucous membranes Cardiovascular: regular rate and rhythym Respiratory: no respiratory distress Gastrointestinal: normoactive bowel sounds, soft, non-tender abdomen Genitourinary: no bladder fullness Skin: warm Musculoskeletal: other (left inner foot with de-roofed blister. No purulence or surrounding erythema) Neurologic: AAOx3, CN II-XII Intact Psychiatric: interacting appropriately ICD10 Worksheet Patient Problems: Problems Problem Status Onset Diabetic foot infection Acute Hyperglycemia Acute Leukocytosis Acute
[2018-05-01] MEDS ORDERED: INSULIN GLARGINE 100 UNITS/ML UNIT SC SCH (13:07)
[2018-05-01] MEDS ORDERED: WARFARIN SODIUM 5 MG TAB PO SCH (16:00)
[2018-05-01] MEDS: IBUPROFEN 600 MG TAB PO PRN (22:13)
[2018-05-01] MEDS: ENOXAPARIN 80 MG/0.8 ML SYR SC SCH (22:15)
[2018-05-01] MEDS: DOXYCYCLINE HYCLATE 100 MG CAP/TAB PO SCH (22:15)
[2018-05-02] MEDS: HYDROCODONE/APAP 5/325 TAB PO PRN ×3 (00:12→12:55)
[2018-05-02 05:21] LABS: INR 1.28 (0.83-1.16); PROTIME(PATIENT) 16.2 SEC (12.0-15.0)
[2018-05-02 07:36] VITALS: BP 112/65
[2018-05-02] MEDS: INSULIN LISPRO 100 UNIT/ML SC SCH ×2 (07:46→12:56)
[2018-05-02] MEDS: ENOXAPARIN 80 MG/0.8 ML SYR SC SCH (07:50)
[2018-05-02] MEDS: DOXYCYCLINE HYCLATE 100 MG CAP/TAB PO SCH (07:50)
[2018-05-02] MEDS: NICOTINE 21 MG/24 HR PATCH TD SCH (07:50)
--- NOTE | 2018-05-02 13:33 | HOSPPROG ---
Hospitalist Progress Note Assessment/Plan: #Left foot cellulitis: now with large blister de-roofed in ER. Healing well. Doxycycline. Elevate. Paged Podiatry, dedicated calcaneous xray today #DM with uncontrolled hyperglycemia: A1c 15%. Increase Glargine, SSI #Factor 5 deficiency: hold AC with increased blood at blister site #Homelessness: CM has provided resources. Has decline [facility]. #Disp: cont inpatient admission for abx, pain control. High-risk for reinfection with uncontrolled sugars and homelessness See DC summary for exam Subjective: increased pain right heel, bleeding at blister site Objective: Vital Signs Temp Pulse Resp BP Pulse Ox 36.5 C 64 16 112/65 98 05/02/18 07:31 05/02/18 07:31 05/02/18 07:31 05/02/18 07:31 05/02/18 07:31 Laboratory Results 05/01/18 05:35 05/01/18 05:35 05/01/18 05/02/18 05/03/18 05:59 05:59 05:59 Intake Total 1640 Balance 1640 PT 16.2 SEC (12.0-15.0) H 05/02/18 04:52 INR 1.28 (0.83-1.16) H 05/02/18 04:52 - Time Spent With Patient Time Spent with Patient: greater than 35 minutes Time Spent with Patient: Greater than 35 minutes spent on this patients care, greater than 50% of time spent counseling, educating, and coordinating care regarding the above mentioned plan. ICD10 Worksheet Patient Problems: Problems Problem Status Onset Diabetic foot infection Acute Hyperglycemia Acute Leukocytosis Acute
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
--- NOTE | 2018-05-02 14:25 | ASMTDCNOTE ---
Case Management Discharge Discharge Order Complete? Answers: Yes Patient to Obtain Answers: Other Notes: unknown Medications Transportation Arranged Answers: Other Notes: unknown Discharge Comments Notes: CM discussed with RN/Medical team, patient left AMA. Date Signed: 05/02/2018 02:24 PM Electronically Signed By:Cady Galan
--- NOTE | 2018-05-02 14:27 | ASMTLACE ---
LACE Length of stay for Answers: 3 days current admission Acuity / Level of Answers: Yes Care: Did the patient have an inpatient admission? Comorbidities - select Answers: Diabetes (uncontrolled or all that apply controlled) Other Notes: Factor V Leiden # of Emergency department Answers: 3-4 visits in the last 6 months Social determinants Answers: Homelessness (street, intermediate) Lack of community resources and/or lack of social support (no pcp, lives alone, transportation, jessica d) Score: 18 Date Signed: 05/02/2018 02:26 PM Electronically Signed By:Cady Galan
[2018-05-03] MEDS ORDERED: NICOTINE 21 MG/24 HR PATCH TD SCH (09:00)
== END 2018-05-02 13:44 | disposition left against medical advice (07) | DRG 420 ==
LOC: F2W 05:32 → OBSVTOIN 04-29 11:45 → F3E 05-01 23:15
PROVIDERS: ADMIT Student in an Organized Health Care Education/Training Program; ATTEND Student in an Organized Health Care Education/Training Program
DX: E11.628 Type 2 diabetes mellitus with other skin complications (principal); D68.2 Hereditary deficiency of other clotting factors; L03.116 Cellulitis of left lower limb; E11.649 Type 2 diabetes mellitus with hypoglycemia without coma; E86.9 Volume depletion, unspecified; T38.3X6A Underdosing of insulin and oral hypoglycemic [antidiabetic] drugs, initial encounter; Z59.0 Homelessness; Z23 Encounter for immunization; Z72.0 Tobacco use
CPT/HCPCS: 96365; G0009; G0378; J1650; J1815; J3370

== ENCOUNTER 2018-05-02 23:16 | Inpatient (IN) | payer MEDICAID ==
[2018-05-02] MEDS ORDERED: VANCOMYCIN HCL/NORMAL SALINE 250 ML IV ONE (23:40)
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
[2018-05-02] MEDS ORDERED: ACETAMINOPHEN 500 MG TAB PO ONE (23:41)
[2018-05-02] MEDS ORDERED: IBUPROFEN 800 MG TAB PO ONE (23:41)
[2018-05-02] MEDS ORDERED: NS 1,000 ML IV ONE (23:44)
[2018-05-02 23:57] LABS: PLATELET COUNT 355 10^3/uL (150-400)
[2018-05-02] MEDS ORDERED: NS 2,400 ML IV ONE (23:58)
[2018-05-03 00:05] LABS: INR 1.42 (0.83-1.16); PROTIME(PATIENT) 17.5 SEC (12.0-15.0)
[2018-05-03] MEDS ORDERED: LORazepam 2 MG/ML INJ IVP ONE (00:21)
[2018-05-03] MEDS ORDERED: ACETAMINOPHEN 325 MG TAB PO PRN (01:46)
[2018-05-03] MEDS ORDERED: ONDANSETRON 4 MG/2 ML VIAL IVP PRN (01:46)
[2018-05-03] MEDS ORDERED: D50W 25 GM/50 ML VIAL IVP PRN (01:51)
[2018-05-03] MEDS ORDERED: NS 1,000 ML IV SCH (02:00)
[2018-05-03] MEDS ORDERED: VANCOMYCIN 1.5 GM in D5W 250 ML IV SCH (02:30)
[2018-05-03] MEDS ORDERED: VANCOMYCIN 1.75 GM in D5W 500 ML IV ONE (02:30)
[2018-05-03] MEDS: ENOXAPARIN 80 MG/0.8 ML SYR SC SCH ×2 (02:36→13:57)
[2018-05-03] MEDS: INSULIN GLARGINE 100 UNITS/ML UNIT SC SCH ×2 (02:36→21:31)
[2018-05-03] MEDS: HYDROCODONE/APAP 5/325 TAB PO PRN ×3 (02:40→20:05)
[2018-05-03 06:02] LABS: INR 1.63 (0.83-1.16); PROTIME(PATIENT) 19.5 SEC (12.0-15.0)
[2018-05-03 06:17] LABS: PLATELET COUNT 312 10^3/uL (150-400)
[2018-05-03] MEDS: INSULIN LISPRO 100 UNIT/ML SC SCH ×3 (07:43→18:06)
--- NOTE | 2018-05-03 07:46 | GHP ---
DATE OF ADMISSION: 05/03/2018 SOURCE: Patient provides history, appears reliable. EMR was reviewed and case discussed with ED provider. CHIEF COMPLAINT: Fever. HISTORY OF PRESENT ILLNESS: This is a 47-year-old gentleman with past medical history significant for poorly controlled diabetes type 2, factor V Leiden deficiency, history of multiple DVTs, PEs, current homelessness, and recent right foot infection with MRSA, who presents to the emergency department today back with complaints of fever. Apparently, patient had become increasingly dissatisfied with his treatment. When he woke up in the morning, he discovered that his right foot wound had been bleeding. He did not quite understand why he would be getting Lovenox and he felt he was just not getting a great explanation and became frustrated to the point that he decided to leave AMA. He at this point recognizes that he needs to be in the hospital and needs to be treated as he left to go back on the streets and again became ill. Patient reports increased pain, some drainage in the right heel site. When he returned when he developed a fever and started to feel quite unwell again. In the emergency department, patient was noted to be febrile at 38.4. He was tachycardic. His blood pressures have been maintained. His lactate was noted to be elevated, but fluid responsive. The patient returned to the emergency department because of development of fever and overall feeling quite unwell. REVIEW OF SYSTEMS: A 10-point review of systems is negative except as noted above. ALLERGIES: No known drug allergies. HOME MEDICATIONS: None recently as patient is homeless except what was received in the hospital.. PAST MEDICAL HISTORY: Significant for diabetes type 2, factor V Leiden deficiency. Patient has not been on anticoagulation. Multiple PEs, DVTs. Homelessness. PAST SURGICAL HISTORY: Significant for IVC filter placement in 2006, which by report has not been removed. FAMILY HISTORY: Significant for factor V Leiden deficiency. SOCIAL HISTORY: Patient smokes tobacco. CODE STATUS: Full. PHYSICAL EXAMINATION: VITAL SIGNS: Upon arrival to the emergency department, blood pressure 131/99, heart rate is 118, temperature 38.4, respiratory rate 18 , O2 saturation 95% on room air. Current vital signs available: Blood pressure 109/66, heart rate is 60, respiratory rate 14, O2 saturation 95% on room air with temperature 36.8. GENERAL: No acute distress. A pleasant adult gentleman is lying quietly in bed. He is pleasant and cooperative at this time. HEAD: Normocephalic, atraumatic. EYES: Extraocular muscles are grossly intact. Pupils equal and symmetric. No scleral icterus or conjunctival injection appreciated. ENT: Mucous membranes appear slightly dry. No oropharyngeal erythema or exudates. Dentition in fair condition. No nasal discharge. NECK: Supple. Trachea midline. CV: Regular rate and rhythm. No murmurs, rubs, or gallops appreciated. RESPIRATORY: Unlabored breathing. Lungs are clear to auscultation bilaterally. No wheezes, rales, or rhonchi appreciated. ABDOMEN: Positive bowel sounds. Soft, nontender to palpation. No rebound, guarding, or masses appreciated. : No suprapubic tenderness to palpation. No Real catheter in place. MUSCULOSKELETAL: Strength grossly intact. Moves all extremities. SKIN: Patient does have a scabbed old blister appearing wound to the medial heel on the left. On the right, he has a large blistering draining wound with a small area of hematoma. It is quite tender to palpation. He has good pulses. NEURO: Grossly nonfocal. Moves all extremities. PSYCH: Patient is a little bit anxious. He is occasionally tearful talking about his homelessness and his lack of resources , but he is otherwise cooperative and pleasant at this time. LABORATORY STUDIES: WBC 14.98, up from 10.6; H and H is 13.1 and 39.5, up from 12.1 and 36.3; MCV 92.3, platelet count is 355. No bands. PT is 17.5, INR is 1.42. VBG: Lactic acid 2.3, decreased to 1.9 in the ED after fluids. Sodium is 136, potassium 4.5, chloride is 96, CO2 is 29, anion gap 11, BUN 16, creatinine 0.8, GFR greater than 60, glucose 281, calcium is 9.5, total bilirubin is 0.3. Patient's previous A1c is 15.6. Microbiology studies reviewed. Gram stain wound culture was positive for MRSA. His blood cultures from the show no growth to date. There are 2 blood cultures pending today. Foot x-ray negative for any acute findings. There does appear to be a bone spur at the insertion of Achilles on the calculus and degenerative joint space narrowing on the 1st MTP joint on the left. ASSESSMENT AND PLAN: A 47-year-old gentleman who is currently homeless with history of uncontrolled diabetes type 2, factor V Leiden, history of multiple deep venous thromboses, pulmonary emboli, who presents back to the emergency department after leaving against medical advice yesterday due to some difficult staff interactions and concerns regarding his foot. The patient currently now recognizes that he is quite ill and does require admission and hospitalization. He does plan to stay for his treatment course as recommended by providers. I did encourage the patient to consider discussion with the charge nurse or nurse supervisor lead burning if he should develop some increasing anxiety or agitation and/or ask staff to leave him quietly for a few minutes until he can collect his thoughts before deciding to leave against medical advice again. 1. Right diabetic foot wound. The patient does have some drainage with an old hematoma. He does have increased pain in that location. I have resumed his vancomycin. Repeat blood cultures are pending. He did return with qualifiers for severe sepsis including elevated lactate above 2, fever, leukocytosis, and tachycardia. Wound care consult. 2. Pain, [place] p.r.n., Tylenol p.r.n. No IV narcotics at this point. 3. Diabetes type 2, poorly controlled. Last A1c is noted to be greater than 15. Patient's Lantus of 35 units has been restarted at bedtime as well as sliding scale. 4. Factor V Leiden deficiency. I did discuss with the patient. Counseled him regarding the need for anticoagulation lifelong. He did not recognize that this was a recommendation and had some concerns regarding the subcu Lovenox, which he is now amenable to continue. We will need to monitor his H and H as he does have a drop currently, but this could also be attributable to some dilutional effect given he was bolused in the emergency department with several liters. 5. Fruga-[id number] anemia, likely underlying chronic disease in setting of his diabetes, but more recently he does have an area of hematoma on that left heel which does not appear to be actively bleeding. 6. History of pulmonary embolus, deep venous thrombosis, status post IVC filter and on Lovenox at this time. 7. Fluid, electrolyte, and nutrition. Intravenous fluids overnight given patient's recent elevated lactate which has now normalized. He does still appear a little dry, so we will continue with intravenous fluids, possibly discontinue once we can ascertain that he is tolerating oral intake and hydration well. Electrolyte replacement adequate at this time. Replacement if needed and diet as tolerated. 8. Prophylaxis. On therapeutic Lovenox. Hold sequential compression devices in setting of foot wound. 9. COR status is full. 10. Disposition. The patient has been admitted back to inpatient status. Anticipate that he will need to be here for several days for continued IV antibiotics. Clearly he continues to have fevers. He may require additional evaluation of his right foot. 11. Social. We will request the case management visit with the patient. He reports he is a [place], but he has never looked into what resources he might be eligible through the [facility]. He is trying to get on with housing to live with his son, but there is an extensive wait list at this time. /[id number]/MODL MTDD
[2018-05-03] MEDS: traMADol 50 MG TAB PO PRN ×3 (09:38→23:24)
--- NOTE | 2018-05-03 11:20 | ASMTCASEMG ---
Living Arrangements What is your living Answers: Alone arrangement? Who do you live with? Type Of Residence What kind of residence do Answers: Homeless you live in? Discharge Plan Comments Coordination Status Comments Notes: Pt is a 47 y/o man admitted for cellulitis on the left foot. Pt admitted on 04/29 for a similar presentation. Pt left AMA yesterday. Pt is homeless w/ his son. CM previously made a referral to [facility]. CM has provided pt w/ resources for housing. Pt has an appointment w/ [facility] on 05/05/18. Needs are TBD at this time. CM to follow. Plan: TBD Date Signed: 05/03/2018 11:19 AM Electronically Signed By:GIRMA Kemp
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
--- NOTE | 2018-05-03 17:36 | HOSPPROG ---
Hospitalist Progress Note Assessment/Plan: DIAGNOSES: * diabetic foot infection at the heel and ankle * diabetes mellitus, with hyperglycemia at this time no evidence of ketoacidosis * uncontrolled pain * factor 5 Leiden disease with history of recurrent PEs and DVTs, high risk for recurrent episode now I reviewed the case in detail with the wound care nurse today. We are both concerned that the patient has likely deep soft tissue infection particularly on the plantar aspect by his heel. 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 I have ordered these x-rays stat. I reviewed the patient that I am concerned about deep soft tissue infection possibly including abscess and that a surgery may be indicated. He understands this. PLANS: * Orbital x-rays * MRI scan of no metal fragments, CT scan if metal present * Continue vancomycin; he did receive 2 doses of vancomycin at midnight and 8 a.m. today and the 2nd dose was very large. He has not yet had any vancomycin levels. We will order a vancomycin level to do this evening at 8:00 p.m. and reassess dosing and schedule. * Continue therapeutic dose Lovenox * Continue pain management I reviewed the case in detail today with Dr. Oksana Haji, and with nurse Maggie Cramer of wound care Time spent at bedside in care coordination today 35 min in addition to the time spent by Dr. Haji in during her admission activities. 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 On the sub malleolar tissues the skin wounds are open but without evidence of necrosis or sinus tract iv site ok I reviewed the x-rays that he has had done over the last few days, there is no evidence of fracture or osteomyelitis Objective: Vital Signs Temp Pulse Resp BP Pulse Ox 36.8 C 57 L 14 113/64 98 05/03/18 15:28 05/03/18 15:28 05/03/18 15:28 05/03/18 15:28 05/03/18 15:28 Laboratory Results 05/03/18 05:38 05/03/18 05:38 05/02/18 05/03/18 05/04/18 06:59 06:59 06:59 Intake Total 2660 Balance 2660 PT 19.5 SEC (12.0-15.0) H 05/03/18 05:38 INR 1.63 (0.83-1.16) H 05/03/18 05:38 - Time Spent With Patient Time Spent with Patient: greater than 35 minutes Time Spent with Patient: Greater than 35 minutes spent on this patients care, greater than 50% of time spent counseling, educating, and coordinating care regarding the above mentioned plan. ICD10 Worksheet Patient Problems: Problems Problem Status Onset Diabetic foot infection Acute Hyperglycemia Acute Leukocytosis Acute
[2018-05-03] MEDS ORDERED: INSULIN LISPRO 100 UNIT/ML SC SCH (21:00)
[2018-05-03] MEDS: VANCOMYCIN 1.75 GM in D5W 500 ML IV SCH (21:23)
[2018-05-04] MEDS: ENOXAPARIN 80 MG/0.8 ML SYR SC SCH ×2 (02:54→14:07)
[2018-05-04] MEDS: HYDROCODONE/APAP 5/325 TAB PO PRN ×4 (04:42→21:19)
[2018-05-04] MEDS: INSULIN LISPRO 100 UNIT/ML SC SCH ×3 (09:03→18:42)
[2018-05-04] MEDS: VANCOMYCIN 1.75 GM in D5W 500 ML IV SCH ×2 (09:56→20:49)
--- NOTE | 2018-05-04 11:12 | PDMN ---
Medical Necessity Medical necessity: Pt admitted back to IP status after leaving AMA on 05/02/18; est los >2 mn for eval/tx of diabetic foot wound w/severe sepsis qualifiers ( elevated lactate, fever, leukocytosis, tachycardia) & acute on chronic anemia; requiring further monitoring, IV abx, pain management & Wound Care consult; hx uncontrolled diabetes (A1c 15), Factor V Leiden w/multiple blood clots & IVC filter, homelessness
--- NOTE | 2018-05-04 12:17 | HOSPPROG ---
Hospitalist Progress Note Assessment/Plan: DIAGNOSES: * diabetic foot infection at the heel and ankle; MRSA * exam suggestive of abscess or deep soft tissue infection plantar; xrays w no sign of osteo * MRI still pending, hopefully will be done early this afternoon * will likely need surgery, will contact foot surgeon after MRI result known * continue vancomycin, follow levels and renal fxn closely * diabetes mellitus, with hyperglycemia at this time no evidence of ketoacidosis * will increase night lantus, stop sliding scale and use scheduled premeal bolus , adjust as needed * uncontrolled pain * doing somewhat better today but still w pain * factor 5 Leiden disease with history of recurrent PEs and DVTs, high risk for recurrent episode now SUBJECTIVE: still with severe pain in his foot on the plantar aspect at the heel No chills or sweats since last night, no nausea or vomiting OBJECTIVE Vitals reviewed: So far stable without fever [employer]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, 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: Exam: alert oriented skin warm dry color ok resps not labored lungs clear BSs heart regular abd soft nondistended nontender, bowel sounds present limbs his left foot has plantar heel still swollen, pale, tender w fluctuance; open submaleolar wound superficial and looks good iv site ok orbital xrays w no metal fragments Lab data: sugars remain high particularly fasting am; post prandial are variable which may be due to use of sliding scale Objective: Vital Signs Temp Pulse Resp BP Pulse Ox 36.4 C 63 20 131/69 H 99 05/04/18 08:00 05/04/18 08:00 05/04/18 08:00 05/04/18 08:00 05/04/18 08:00 Laboratory Results 05/03/18 05:38 05/04/18 04:50 05/03/18 05/04/18 05/05/18 06:59 06:59 06:59 Intake Total 2660 Output Total 0 Balance 2660 0 PT 19.5 SEC (12.0-15.0) H 05/03/18 05:38 INR 1.63 (0.83-1.16) H 05/03/18 05:38 ICD10 Worksheet Patient Problems: Problems Problem Status Onset Diabetic foot infection Acute Hyperglycemia Acute Leukocytosis Acute
[2018-05-04] MEDS ORDERED: GADOBUTROL 10 ML VIAL IVP ONE (17:13)
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
[2018-05-04] MEDS: INSULIN GLARGINE 100 UNITS/ML UNIT SC SCH (20:49)
[2018-05-05 04:59] LABS: HEPATITIS B CORE AB TOTAL NEGATIVE (NEGATIVE); HEPATITIS B SURFACE ANTIGEN NEGATIVE (NEGATIVE); HEPATITIS C ANTIBODY TOTAL NEGATIVE (NEGATIVE); HIV TYPE 1 AND 2 NEGATIVE (NEGATIVE)
--- NOTE | 2018-05-05 08:24 | PCMIDPN ---
Assessment/Plan: # MRSA Diabetic L foot ulcer/abscess L heal. Reviewed MRI findings --I called Dr. Mitchell this AM --Continue vancomycin, trough ok, may eventually need to increase --full dose insulin given last night, I gave amp D50 and started on D5 NS at 100cc/hour --OR at noon meds Vancomycin 1.75gm IV q12h, vanco T = 10 Microbiology 04/28/18 04:40 Blood Cx (2) Neg 04/28/18 04:00 Foot - Swab Wound cx : MRSA 05/02/18 23:45 Blood Cx (2) NGTD Subjective: patient feels very poorly due to low glucose no foot pain Objective: Vital Signs Temp Pulse Resp BP Pulse Ox 36.4 C 56 L 16 115/74 97 05/04/18 23:09 05/04/18 23:09 05/04/18 23:09 05/04/18 23:09 05/04/18 23:09 Laboratory Results 05/03/18 05:38 05/05/18 04:15 05/04/18 05/05/18 05/06/18 05:59 05:59 05:59 Output Total 0 Balance 0 C-Reactive Protein 42.8 mg/L (<10.0) H 05/04/18 09:01 - Physical Exam General Appearance: alert, no apparent distress Extremities: No pedal edema Skin: diaphoresis, No rash Neuro/Psych: alert, oriented x 3 - Time Spent With Patient Time Spent with Patient: greater than 25 minutes (care coordinated with Dr. Mitchell) Time Spent with Patient: Greater than 25 minutes spent on this patients care, greater than 50% of time spent counseling, educating, and coordinating care regarding the above mentioned plan. ICD10 Worksheet Patient Problems: Problems Problem Status Onset Diabetic foot infection Acute Hyperglycemia Acute Leukocytosis Acute
--- NOTE | 2018-05-05 08:40 | SOAPPROG ---
SOAP Progress Note Assessment/Plan: Assessment: To OR today for debridement skin soft tissue LLE Consent signed in chart NPO Scheduled IV antibiotics Full consult to follow 05/05/18 09:12 Objective: Vital Signs Temp Pulse Resp BP Pulse Ox 36.3 C 64 16 115/65 98 05/05/18 08:00 05/05/18 08:00 05/05/18 08:00 05/05/18 08:00 05/05/18 08:00 Laboratory Results 05/03/18 05:38 05/05/18 04:15 05/04/18 05/05/18 05/06/18 05:59 05:59 05:59 Output Total 0 Balance 0 PT 19.5 SEC (12.0-15.0) H 05/03/18 05:38 INR 1.63 (0.83-1.16) H 05/03/18 05:38 ICD10 Worksheet Patient Problems: Problems Problem Status Onset Diabetic foot infection Acute Hyperglycemia Acute Leukocytosis Acute
[2018-05-05] MEDS ORDERED: D5W NS 1,000 ML IV SCH (09:00)
[2018-05-05] MEDS: HYDROCODONE/APAP 5/325 TAB PO PRN ×3 (09:15→19:57)
[2018-05-05] MEDS: INSULIN LISPRO 100 UNIT/ML SC SCH ×3 (09:34→17:56)
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
[2018-05-05] MEDS: VANCOMYCIN 1.75 GM in D5W 500 ML IV SCH ×2 (10:26→21:27)
[2018-05-05] MEDS ORDERED: BUPIVACAINE 0.5% 30 ML SDV ONE (10:27)
--- NOTE | 2018-05-05 11:33 | ASMTCMCOM ---
CM Note CM Note Notes: Pt will have surgery today for left leg wound. CM called [facility] and cancelled todays appt. Pt has been otherwise independent, CM w/f. DC Plan: Tbd Date Signed: 05/05/2018 11:32 AM Electronically Signed By:Sandra Porras RN
[2018-05-05] MEDS ORDERED: LR 1,000 ML IV ONE (11:59)
[2018-05-05] MEDS ORDERED: MIDAZOLAM 2 MG/2 ML VIAL IVP ONE (12:00)
--- NOTE | 2018-05-05 12:00 | PDANEPAE ---
ANE History of Present Illness 47 yo for i &d foot ANE Past Medical History - Cardiovascular History Hx Hypertension: No Hx Arrhythmias: No Hx Chest Pain: No Hx Coronary Artery / Peripheral Vascular Disease: No Hx CHF / Valvular Disease: No Hx Palpitations: No - Pulmonary History Hx Oxygen in Use at Home: No Hx Sleep Apnea: No Sleep Apnea Screening Result - Last Documented: Negative - Endocrine History Hx Diabetes: Yes - Chronic Pain History Chronic Pain: No ANE Review of Systems Review of Systems: - Exercise capacity METS (RN): 3 METS ANE Patient History - Allergies Allergies/Adverse Reactions: No Known Allergies Allergy (Verified 05/02/18 23:25) - Home Medications Home medications: home medication list seen and reviewed Home Medications: NK [No Known Home Meds] 05/03/18 [Last Taken Unknown] - NPO status NPO Since - Liquids (Date): 05/05/18 NPO Since - Liquids (Time): 00:00 NPO Since - Solids (Date): 05/05/18 NPO Since - Solids (Time): 00:00 - Anes Hx Anes Hx: no prior problems - Smoking Hx Smoking Status: Heavy smoker ANE Labs/Vital Signs - Labs Result Diagrams: 05/03/18 05:38 05/05/18 04:15 - Vital Signs Blood Pressure: 115/65 Heart Rate: 64 Respiratory Rate: 16 O2 Sat (%): 98 Height: 6 ft 3 in Weight: 79.379 kg ANE Physical Exam - Airway Mallampati Score: Class 2 Mouth exam: normal dental/mouth exam - Pulmonary Pulmonary: no respiratory distress - Cardiovascular Cardiovascular: regular rate and rhythym - ASA Status ASA Status: II ANE Anesthesia Plan Anesthesia Plan: GA w LMA
[2018-05-05] MEDS ORDERED: PROPOFOL/EMULSION 500 MG/50 ML BOTTLE IV ONE (12:06)
[2018-05-05] MEDS ORDERED: fentaNYL 100 MCG/2 ML INJ ONE ×2 (12:06→13:05)
[2018-05-05] MEDS ORDERED: NALOXONE HCL 0.4 MG/ML INJ IVP PRN (12:35)
[2018-05-05] MEDS ORDERED: ONDANSETRON 4 MG/2 ML VIAL IVP PRN (12:35)
[2018-05-05] MEDS: fentaNYL 100 MCG/2 ML INJ IVP PRN ×2 (13:00→13:14)
--- NOTE | 2018-05-05 13:23 | POSTOPPROG ---
Post Op Note Date of Operation: 05/05/18 Surgeon: Danni Mitchell Anesthesiologist: [email or web address] Pre-op Diagnosis: L foot abscess Post-op Diagnosis: same Indication: 47 yo with foot abscess Procedure: excisional debridement foot abscess Findings: [id number] Inf/Abcess present in the surg proc area at time of surgery?: Yes Depth: Deep Incisional (Fascial) EBL: Minimal Specimen(s): micro
--- NOTE | 2018-05-05 14:09 | GOP ---
DATE OF OPERATION: 05/05/2018 SURGEON: Danni Mitchell MD ANESTHESIA: General. ANESTHESIOLOGIST: Missael Stewart MD PREOPERATIVE DIAGNOSIS: Left heel abscess. POSTOPERATIVE DIAGNOSIS: Left heel abscess. PROCEDURE PERFORMED: Excisional debridement skin and soft tissue to the level of fat measuring 8 x 6 x 1 cm. FINDINGS: One larger abscess collection and multiple micro pockets of purulent material. SPECIMENS: Microbiology. ESTIMATED BLOOD LOSS: 5 cc. INDICATIONS: The patient is a 47-year-old diabetic man with factor V Leiden, who had pain in his left heel. MRI was obtained, which showed abscess. DESCRIPTION OF PROCEDURE: The patient was brought into the operating room, placed supine on the table and general anesthesia was administered. His left heel was prepped and draped in the usual sterile fashion. I made a cruciate incision over the fluctuant area. Purulent material was expressed. I submitted a sample for microbiology. I widen this a bit as there was necrotic fat, and as I pressed on his heel I could see multiple areas of micro pockets containing additional purulent areas. I continued debridement until there was healthy tissue. Hemostasis achieved. Wound packed with Hydrofera Blue and wrapped. /[id number]/MODL MTDD
--- NOTE | 2018-05-05 17:31 | HOSPPROG ---
Hospitalist Progress Note Assessment/Plan: DIAGNOSES: * diabetic foot infection with abscess at the heel; MRSA from wound cultures * Postop debridement and evacuation of abscess doing well * continue vancomycin, follow levels and renal fxn closely * diabetes mellitus, with hyperglycemia at this time no evidence of ketoacidosis * Continue increased night lantus, and use scheduled premeal bolus, follow closely and adjust as needed * uncontrolled pain * doing remarkably better after surgery * factor 5 Leiden disease with history of recurrent PEs and DVTs, high risk for recurrent episode now * Continue anticoagulation postop with Lovenox when Dr. Mitchell feels comfortable with that I reviewed in detail today with Dr. Danni Mitchell and with Dr. Jackson SUBJECTIVE: I visited the patient after his surgery today; large abscess with debridement of tissue down to the level of health tissue on the plantar foot Patient says his pain is quite remarkably decreased after his surgery. He otherwise feels well without fever symptoms is eating well and no other new acute symptoms. OBJECTIVE Vitals reviewed: So far stable without fever Exam: alert oriented skin warm dry color ok resps not labored lungs clear BSs heart regular abd soft nondistended nontender, bowel sounds present limbs his left foot currently dressed after surgery, good distal sensation at the toes compared to preop and moves them well, good color iv site ok MRI from last night shows large abscess on the plantar aspect of the foot without evidence of myositis or osteomyelitis Lab data: sugars overall better so far today but he was NPO for part of the day for his surgery Objective: Vital Signs Temp Pulse Resp BP Pulse Ox 36.3 C 73 16 106/61 95 05/05/18 16:00 05/05/18 16:00 05/05/18 16:00 05/05/18 16:00 05/05/18 16:00 Laboratory Results 05/03/18 05:38 05/05/18 04:15 05/04/18 05/05/18 05/06/18 06:59 06:59 06:59 Intake Total 1060 Output Total 0 Balance 0 1060 PT 19.5 SEC (12.0-15.0) H 05/03/18 05:38 INR 1.63 (0.83-1.16) H 05/03/18 05:38 ICD10 Worksheet Patient Problems: Problems Problem Status Onset Diabetic foot infection Acute Hyperglycemia Acute Leukocytosis Acute
[2018-05-05] MEDS: INSULIN GLARGINE 100 UNITS/ML UNIT SC SCH (21:26)
[2018-05-05] MEDS: traMADol 50 MG TAB PO PRN (23:54)
[2018-05-06] MEDS: ENOXAPARIN 80 MG/0.8 ML SYR SC SCH ×2 (01:26→14:18)
[2018-05-06 05:02] LABS: PLATELET COUNT 317 10^3/uL (150-400)
[2018-05-06] MEDS: INSULIN LISPRO 100 UNIT/ML SC SCH ×3 (08:43→18:07)
[2018-05-06] MEDS: HYDROCODONE/APAP 5/325 TAB PO PRN ×3 (08:58→22:10)
--- NOTE | 2018-05-06 09:15 | SOAPPROG ---
SOAP Progress Note Assessment/Plan: Assessment: Status post excisional debridement left heel. He had a large abscess pocket multiple micro abscess pockets. His pain is different today more of a throbbing in nature. I did not take down the dressing. I will take it down tomorrow and likely inject him with micronized Epifix. Limited weight-bearing status Plan: 05/06/18 09:14 Objective: Vital Signs Temp Pulse Resp BP Pulse Ox 36.4 C 62 19 106/48 L 97 05/06/18 08:00 05/06/18 08:00 05/06/18 08:00 05/06/18 08:00 05/06/18 08:00 Microbiology 05/05/18 12:40 Gram Stain - Final Ankle - Tissue Laboratory Results 05/06/18 04:30 05/06/18 04:30 05/05/18 05/06/18 05/07/18 05:59 05:59 05:59 Intake Total 1920 Output Total 0 Balance 0 1920 PT 19.5 SEC (12.0-15.0) H 05/03/18 05:38 INR 1.63 (0.83-1.16) H 05/03/18 05:38 ICD10 Worksheet Patient Problems: Problems Problem Status Onset Diabetic foot infection Acute Hyperglycemia Acute Leukocytosis Acute
[2018-05-06] MEDS: VANCOMYCIN 1.75 GM in D5W 500 ML IV SCH ×2 (10:50→22:06)
--- NOTE | 2018-05-06 12:14 | PCMIDPN ---
Assessment/Plan: 1. Left heel MRSA abscess in patient with history of diabetes mellitus and homelessness: Status post incision and drainage with debridement. He may be able to transition to oral therapy moving forward with assiduous wound Care, but will need to evaluate the wound tomorrow. Continue vancomycin at present dose. I am okay with a trough of 9.7. 2. Homelessness: Will also obtain hepatitis a total antibody given outbreak of hepatitis a among the homeless population. If not immune, he will need vaccines for both hepatitis a and hepatitis-B before discharge. HIV negative. Subjective: Status post incision and drainage in the operating room of left heel abscess. Patient in good spirits. No complaints. In a jovial mood. Objective: Vancomycin 1.75 g IV q.12 hours day for No fevers Vital Signs Temp Pulse Resp BP Pulse Ox 36.4 C 62 19 106/48 L 97 05/06/18 08:00 05/06/18 08:00 05/06/18 08:00 05/06/18 08:00 05/06/18 08:00 Microbiology 05/05/18 12:40 Gram Stain - Final Ankle - Tissue Laboratory Results 05/06/18 04:30 05/06/18 04:30 05/05/18 05/06/18 05/07/18 05:59 05:59 05:59 Intake Total 1920 Output Total 0 Balance 0 1920 C-Reactive Protein 42.8 mg/L (<10.0) H 05/04/18 09:01 Ankle cultures: 3+ MRSA, susceptibilities pending Blood cultures remain negative - Physical Exam General Appearance: alert, no apparent distress EENT: pharynx normal, No thrush Respiratory: lungs clear Extremities: other (Left heel wrapped with primary surgical dressing. I did not take it down.) Skin: No rash ICD10 Worksheet Patient Problems: Problems Problem Status Onset Diabetic foot infection Acute Hyperglycemia Acute Leukocytosis Acute
[2018-05-06] MEDS: traMADol 50 MG TAB PO PRN (12:26)
[2018-05-06 14:59] LABS: HEPATITIS A ANTIBODY TOTAL POSITIVE (NEGATIVE)
[2018-05-06 16:39] LABS: HEPATITIS A ANTIBODY IGM (BCH) NEGATIVE (NEGATIVE)
[2018-05-06] MEDS ORDERED: INSULIN LISPRO 100 UNIT/ML SC ONE (18:45)
--- NOTE | 2018-05-06 19:35 | HOSPPROG ---
Hospitalist Progress Note Assessment/Plan: DIAGNOSES: * diabetic foot infection with abscess at the heel; MRSA from wound cultures * Postop debridement and evacuation of abscess doing well * continue vancomycin, follow levels and renal fxn closely * Wound management per surgery * diabetes mellitus, with hyperglycemia at this time no evidence of ketoacidosis * Further increases in Lantus and short-acting insulin, and I also recommended he stop eating any suite foods or beverages * uncontrolled pain * doing remarkably better after surgery * factor 5 Leiden disease with history of recurrent PEs and DVTs, high risk for recurrent episode now * Continue anticoagulation postop with Lovenox when Dr. Mitchell feels comfortable with that I reviewed in detail today with Dr. Danni Mitchell and with Dr. Jackson SUBJECTIVE: Has more throbbing in the foot today but overall feels much better again than when he came in No fever symptoms Eating well OBJECTIVE Vitals reviewed: So far stable without fever Exam: alert oriented skin warm dry color ok resps not labored lungs clear BSs heart regular abd soft nondistended nontender, bowel sounds present limbs his left foot currently dressed after surgery, good distal sensation at the toes compared to preop and moves them well, good color iv site ok Lab data: sugars quite a bit higher today despite getting insulin; he has had some sugared sodas and other sweet foods which I have recommended he stop Objective: Vital Signs Temp Pulse Resp BP Pulse Ox 36.9 C 60 18 126/76 H 98 05/06/18 16:00 05/06/18 16:00 05/06/18 16:00 05/06/18 16:00 05/06/18 16:00 Microbiology 05/05/18 12:40 Gram Stain - Final Ankle - Tissue Laboratory Results 05/06/18 04:30 05/06/18 04:30 05/05/18 05/06/18 05/07/18 06:59 06:59 06:59 Intake Total 1920 Output Total 0 Balance 0 1920 PT 19.5 SEC (12.0-15.0) H 05/03/18 05:38 INR 1.63 (0.83-1.16) H 05/03/18 05:38 ICD10 Worksheet Patient Problems: Problems Problem Status Onset Diabetic foot infection Acute Hyperglycemia Acute Leukocytosis Acute
[2018-05-06] MEDS ORDERED: INSULIN GLARGINE 100 UNITS/ML UNIT SC ONE (22:00)
[2018-05-06] MEDS: INSULIN GLARGINE 100 UNITS/ML UNIT SC SCH (22:15)
[2018-05-07] MEDS: ENOXAPARIN 80 MG/0.8 ML SYR SC SCH ×2 (01:12→14:14)
[2018-05-07] MEDS: INSULIN LISPRO 100 UNIT/ML SC SCH ×2 (08:46→12:22)
[2018-05-07] MEDS: HYDROCODONE/APAP 5/325 TAB PO PRN ×2 (09:08→14:22)
[2018-05-07] MEDS: VANCOMYCIN 1.75 GM in D5W 500 ML IV SCH (09:51)
--- NOTE | 2018-05-07 10:33 | SOAPPROG ---
SOAP Progress Note Assessment/Plan: Assessment/Plan: 47-year-old man with poorly controlled diabetes status post excisional debridement of left heel. Significant pain with dressing removal. I was hoping to inject with micronized epifix, but he would not tolerated the injection Redressed wound with Hydrofera Blue Ready, ABD, Kerlix and Coban We will re-evaluate next week if inpt Limited weight-bearing status S: Complains of pain of the left heel, markedly worse when dressing removed O: Lying in bed, distress with dressing removal No increased work of breathing No peripheral edema No surrounding erythema. Dressing was not fully removed due to pain. Objective: Vital Signs Temp Pulse Resp BP Pulse Ox 36.4 C 54 L 19 119/82 H 98 05/07/18 04:00 05/07/18 07:57 05/07/18 07:57 05/07/18 07:57 05/07/18 07:57 Microbiology 05/05/18 12:40 Gram Stain - Final Ankle - Tissue Laboratory Results 05/06/18 04:30 05/06/18 04:30 05/06/18 05/07/18 05/08/18 05:59 05:59 05:59 Intake Total 1920 480 Output Total 0 Balance 1920 480 0 PT 19.5 SEC (12.0-15.0) H 05/03/18 05:38 INR 1.63 (0.83-1.16) H 05/03/18 05:38 ICD10 Worksheet Patient Problems: Problems Problem Status Onset Diabetic foot infection Acute Hyperglycemia Acute Leukocytosis Acute
[2018-05-07 12:17] VITALS: BP 114/67
[2018-05-07] MEDS: traMADol 50 MG TAB PO PRN (12:22)
--- NOTE | 2018-05-07 14:10 | PCMIDPN ---
Assessment/Plan: # MRSA Diabetic L foot ulcer/abscess L heals s/p debridement. Cx also shows PsA but MRSA primary pathogen --dc vancomycin --change to PO doxycycline x1 more week --query dispo with inability to ambulate well meds Vancomycin 1.75gm IV q12h, vanco T = 9, 10 Microbiology 04/28/18 04:40 Blood Cx (2) Neg 04/28/18 04:00 Foot - Swab Wound cx : 3+ MRSA; 1+PsA 05/02/18 23:45 Blood Cx (2) NGTD Subjective: still with heal pain but different type of pain, less severe than before but still difficult to walk Objective: Vital Signs Temp Pulse Resp BP Pulse Ox 36.4 C 55 L 18 114/67 98 05/07/18 12:00 05/07/18 12:00 05/07/18 12:00 05/07/18 12:00 05/07/18 12:00 Microbiology 05/05/18 12:40 Gram Stain - Final Ankle - Tissue Laboratory Results 05/06/18 04:30 05/06/18 04:30 05/06/18 05/07/18 05/08/18 05:59 05:59 05:59 Intake Total 1920 480 Output Total 1 Balance 1920 480 -1 C-Reactive Protein 42.8 mg/L (<10.0) H 05/04/18 09:01 - Physical Exam General Appearance: alert, no apparent distress EENT: No pale conjunctiva Respiratory: lungs clear, No accessory muscle use Cardiac/Chest: regular rate, rhythm Extremities: pedal edema (left leg) Abdomen: non-tender, soft Skin: No rash Neuro/Psych: alert, normal mood/affect, oriented x 3 - Time Spent With Patient Time Spent with Patient: greater than 25 minutes Time Spent with Patient: Greater than 25 minutes spent on this patients care, greater than 50% of time spent counseling, educating, and coordinating care regarding the above mentioned plan. ICD10 Worksheet Patient Problems: Problems Problem Status Onset Cellulitis Acute Diabetic foot infection Acute Pseudomonas infection Acute Hyperglycemia Acute Leukocytosis Acute
--- NOTE | 2018-05-07 16:29 | HOSPPROG ---
Hospitalist Progress Note Assessment/Plan: DIAGNOSES: * diabetic foot infection with abscess at the heel; MRSA and Pseudomonas from wound cultures * Postop debridement and evacuation of abscess; need for ongoing significant wound care * Antibiotic changed to oral doxycycline today per Dr. Jackson * Wound management per surgery * diabetes mellitus, with hyperglycemia at this time no evidence of ketoacidosis * Sugars better today though still high * For reasons unclear to me the patient received only half his usual dose of Lantus last night, I suspect it may be because he had a sugar of 150s at HS. I would not at this time reduce his Lantus dose for a high or normal HS fingerstick * Will not further increase long-acting insulin at this point but he may need that depending on his a.m. sugars * Will increase his the short-acting prandial doses as he continues to have significant postprandial hyperglycemia * uncontrolled pain * Better after surgery but still some pain * factor 5 Leiden disease with history of recurrent PEs and DVTs, high risk for recurrent episode now * Continue anticoagulation postop with Lovenox when Dr. Mitchell feels comfortable with that Patient is on oral antibiotics, however has significant wound issues on the plantar aspect of his foot, limited mobility due to pain, and living [address] does not have very good way to manage this wound. Would recommend further treatment here until he is better mobile and has some better degree of wound healing and control of infection. SUBJECTIVE: So fair bit of foot pain. Due to pain he was unable to have epifix placed in the wound today No other symptoms, eating well, no fever symptoms or respiratory issues OBJECTIVE Vitals reviewed: So far stable without fever Exam: alert oriented skin warm dry color ok resps not labored lungs clear BSs heart regular abd soft nondistended nontender, bowel sounds present limbs his left foot currently dressed after surgery, good distal sensation at the toes compared to preop and moves them well, good color iv site ok Lab data: Sugars better today but still all greater than 200 and increasing after meals Notably he received only half of his usual nighttime Lantus yesterday, in reviewing his sugars he had a HS sugar of 159 and I suspect that this led to a decision last night to give him lower Lantus dose. Fasting sugar today 270 Objective: Vital Signs Temp Pulse Resp BP Pulse Ox 36.4 C 55 L 18 114/67 98 05/07/18 12:00 05/07/18 12:00 05/07/18 12:00 05/07/18 12:00 05/07/18 12:00 Microbiology 05/05/18 12:40 Gram Stain - Final Ankle - Tissue Laboratory Results 05/06/18 04:30 05/06/18 04:30 05/06/18 05/07/18 05/08/18 06:59 06:59 06:59 Intake Total 1920 480 Output Total 1 Balance 1920 480 -1 PT 19.5 SEC (12.0-15.0) H 05/03/18 05:38 INR 1.63 (0.83-1.16) H 05/03/18 05:38 ICD10 Worksheet Patient Problems: Problems Problem Status Onset Diabetic foot infection Acute Hyperglycemia Acute Leukocytosis Acute
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
[2018-05-07] MEDS ORDERED: INSULIN LISPRO 100 UNIT/ML SC SCH (18:00)
[2018-05-07] MEDS ORDERED: DOXYCYCLINE HYCLATE 100 MG CAP/TAB PO SCH (21:00)
--- NOTE | 2018-05-12 10:08 | POSTANESTH ---
Post Anesthetic Evaluation Cardiovascular Status: Normal, Stable Respiratory Status: Normal, Stable Level of Consciousness/Mental Status: Can Participate in Eval Pain Control: Adequate, Prn Tx Ordered Nausea/Vomiting Control: Adequate, Prn Tx Ordered Complications Possibly Related to Anesthesia: None Noted
== END 2018-05-07 17:09 | disposition left against medical advice (07) | DRG 420 ==
LOC: OBSVTOIN 05-03 00:17 → F3E 05-03 00:55
PROVIDERS: ADMIT Family Medicine; ATTEND Family Medicine
PROC: 0JBR0ZZ Excision of Left Foot Subcutaneous Tissue and Fascia, Open Approach (ICD-10-PCS; principal; 2018-05-05 12:30)
DX: E11.628 Type 2 diabetes mellitus with other skin complications (principal); D68.2 Hereditary deficiency of other clotting factors; B95.62 Methicillin resistant Staphylococcus aureus infection as the cause of diseases classified elsewhere; L02.612 Cutaneous abscess of left foot; S90.32XA Contusion of left foot, initial encounter; B96.5 Pseudomonas (aeruginosa) (mallei) (pseudomallei) as the cause of diseases classified elsewhere; E11.65 Type 2 diabetes mellitus with hyperglycemia; D64.9 Anemia, unspecified; Z59.0 Homelessness; Z72.0 Tobacco use; Z86.711 Personal history of pulmonary embolism; Z86.718 Personal history of other venous thrombosis and embolism
CPT/HCPCS: 86704-90; 86708-90; 86709-90; 96365; 97161-GP; A9585; G0472; J1650; J1815; J2060; J2250; J2270; J2704; J3010; J3370

== ENCOUNTER 2018-05-07 22:18 | Inpatient (IN) | payer MEDICAID ==
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
[2018-05-07] MEDS ORDERED: HYDROmorphONE/DILAUDID 2 MG/ML INJ IVP ONE (22:52)
[2018-05-07] MEDS ORDERED: ONDANSETRON 4 MG/2 ML VIAL IVP PRN (23:09)
[2018-05-07] MEDS ORDERED: ONDANSETRON DISINTEGRATING 4 MG TAB PO PRN (23:09)
[2018-05-07] MEDS ORDERED: ACETAMINOPHEN 325 MG TAB PO PRN (23:09)
[2018-05-07] MEDS ORDERED: D50W 25 GM/50 ML VIAL IVP PRN (23:10)
[2018-05-07] MEDS ORDERED: traMADol 50 MG TAB PO PRN (23:16)
[2018-05-07 23:21] LABS: PLATELET COUNT 317 10^3/uL (150-400)
[2018-05-07] MEDS ORDERED: DOXYCYCLINE HYCLATE 100 MG CAP/TAB ONE (23:30)
[2018-05-07] MEDS: DOXYCYCLINE HYCLATE 100 MG CAP/TAB PO SCH (23:31)
[2018-05-07] MEDS ORDERED: NS 1,000 ML IV ONE (23:32)
[2018-05-07] MEDS: INSULIN GLARGINE 100 UNITS/ML UNIT SC SCH (23:54)
[2018-05-08] MEDS ORDERED: traMADol 50 MG TAB PO PRN (00:49)
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
[2018-05-08] MEDS: traMADol 50 MG TAB PO PRN ×3 (05:00→15:11)
[2018-05-08 05:49] LABS: PLATELET COUNT 315 10^3/uL (150-400)
[2018-05-08] MEDS: INSULIN LISPRO 100 UNIT/ML SC SCH ×3 (07:53→18:03)
[2018-05-08] MEDS: DOXYCYCLINE HYCLATE 100 MG CAP/TAB PO SCH ×2 (09:07→20:25)
[2018-05-08] MEDS: ENOXAPARIN 80 MG/0.8 ML SYR SC SCH ×2 (09:07→20:25)
--- NOTE | 2018-05-08 09:56 | HOSPPROG ---
Hospitalist Progress Note Assessment/Plan: 47-year-old with diabetes and factor 5 Leiden with recurrent DVTs and PEs is admitted with left foot infection, status post I and D x2. He recently left AMA but returned when he was unable to ambulate. # left foot infection in a diabetic, cultures grew out MRSA and Pseudomonas. He is back with inability to ambulate in a homeless patient * Continue antibiotics, currently on doxycycline * Have wound care evaluate * Will discuss with ID regarding any changes in management is I have not previously viewed the wound * Will have to figure out a disposition given the fact he is homeless and has been unable to tolerate pain with ambulation * Discussed with ID and surgery, wound has worsened and needs additional midnight stay for wound care # factor 5 Leiden: Currently on and anticoagulation due to recurrent DVTs and PEs # diabetes, continue current management as well as sliding scale monitor blood sugars Subjective: Patient new to me and chart reviewed. Continues to complain of pain on his left heel and has been unable to ambulate. Objective: Vital Signs Temp Pulse Resp BP Pulse Ox 36.5 C 54 L 14 113/75 96 05/08/18 07:40 05/08/18 07:40 05/08/18 07:40 05/08/18 07:40 05/08/18 07:40 Laboratory Results 05/08/18 05:16 05/08/18 05:16 05/07/18 05/08/18 05/09/18 05:59 05:59 05:59 Intake Total 400 Balance 400 - Physical Exam Constitutional: uncomfortable Eyes: PERRL Ears, Nose, Mouth, Throat: moist mucous membranes Cardiovascular: regular rate and rhythym Respiratory: no respiratory distress, clear to auscultation Gastrointestinal: normoactive bowel sounds, soft, non-tender abdomen, no palpable masses, No tenderness Genitourinary: no bladder fullness Skin: warm, other (Open wound left calcaneus, good pulses) Neurologic: AAOx3 Psychiatric: interacting appropriately ICD10 Worksheet Patient Problems: Problems Problem Status Onset Diabetic foot infection Acute Hyperglycemia Acute Leukocytosis Acute Cellulitis Acute Pseudomonas infection Acute
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
--- NOTE | 2018-05-08 11:21 | SOAPPROG ---
SOAP Progress Note Assessment/Plan: Assessment: 47 year DM s/p excisional debridement of wound on right foot. Left AMA and now readmitted Foot is worse than post op Will try dressing changes that can also debride - not eager to do serial OR debridement if leaving AMA frequently Very difficult situation S: In pain, frustrated today O: Necrotic tissue on left foot, painful Plan: 05/08/18 11:19 Objective: Vital Signs Temp Pulse Resp BP Pulse Ox 36.5 C 54 L 14 113/75 96 05/08/18 07:40 05/08/18 07:40 05/08/18 07:40 05/08/18 07:40 05/08/18 07:40 Laboratory Results 05/08/18 05:16 05/08/18 05:16 05/07/18 05/08/18 05/09/18 05:59 05:59 05:59 Intake Total 400 Balance 400 ICD10 Worksheet Patient Problems: Problems Problem Status Onset Cellulitis Acute Diabetic foot infection Acute Pseudomonas infection Acute Hyperglycemia Acute Leukocytosis Acute
[2018-05-08] MEDS: oxyCODONE IR 5 MG TAB PO PRN ×2 (12:11→18:02)
[2018-05-08] MEDS: INSULIN GLARGINE 100 UNITS/ML UNIT SC SCH (20:25)
[2018-05-09] MEDS: INSULIN LISPRO 100 UNIT/ML SC SCH ×3 (09:02→17:15)
[2018-05-09] MEDS: ENOXAPARIN 80 MG/0.8 ML SYR SC SCH ×2 (09:02→20:25)
[2018-05-09] MEDS: oxyCODONE IR 5 MG TAB PO PRN ×3 (09:08→20:25)
[2018-05-09] MEDS: DOXYCYCLINE HYCLATE 100 MG CAP/TAB PO SCH ×2 (09:08→20:25)
--- NOTE | 2018-05-09 10:09 | HOSPPROG ---
Hospitalist Progress Note Assessment/Plan: 47-year-old with diabetes and factor 5 Leiden with recurrent DVTs and PEs is admitted with left foot infection, status post I and D x2. He recently left AMA but returned when he was unable to ambulate. # left foot infection in a diabetic, cultures grew out MRSA and Pseudomonas. He is back with inability to ambulate in a homeless patient * Continue antibiotics, currently on doxycycline * Have wound care evaluate * Will discuss with ID regarding any changes in management is I have not previously viewed the wound * Will have to figure out a disposition given the fact he is homeless and has been unable to tolerate pain with ambulation * Discussed with ID and surgery, wound has worsened and needs additional midnight stay for wound care # factor 5 Leiden: Currently on and anticoagulation due to recurrent DVTs and PEs # diabetes, continue current management as well as sliding scale monitor blood sugars Subjective: pt evaluated with Dr. Mitchell. wound is healing Objective: Vital Signs Temp Pulse Resp BP Pulse Ox 36.5 C 57 L 14 121/67 H 95 05/09/18 08:00 05/09/18 08:00 05/09/18 08:00 05/09/18 08:00 05/09/18 08:00 Laboratory Results 05/08/18 05:16 05/08/18 05:16 05/08/18 05/09/18 05/10/18 05:59 05:59 05:59 Intake Total 400 500 Balance 400 500 - Physical Exam Constitutional: no apparent distress Eyes: PERRL Cardiovascular: regular rate and rhythym Respiratory: no respiratory distress Gastrointestinal: normoactive bowel sounds Genitourinary: no bladder fullness Skin: warm, other (wound on heel no significant erythema noted.) Musculoskeletal: No muscular tenderness Neurologic: AAOx3 Psychiatric: interacting appropriately ICD10 Worksheet Patient Problems: Problems Problem Status Onset Cellulitis Acute Diabetic foot infection Acute Pseudomonas infection Acute Hyperglycemia Acute Leukocytosis Acute
--- NOTE | 2018-05-09 10:16 | SOAPPROG ---
SOAP Progress Note Assessment/Plan: Assessment: 47 year DM s/p excisional debridement of wound on right foot. Applied Iodine dressing yesterday Will give pain meds and evaluate wound tomorrow Less foot swelling today Periwound stable Will try dressing changes that can also debride - not eager to do serial OR debridement if leaving AMA frequently Very difficult situation S: In pain O: Visible edges of wound appear better. Did not remove the iodine dressing Plan: 05/08/18 11:19 05/09/18 10:15 Objective: Vital Signs Temp Pulse Resp BP Pulse Ox 36.5 C 57 L 14 121/67 H 95 05/09/18 08:00 05/09/18 08:00 05/09/18 08:00 05/09/18 08:00 05/09/18 08:00 Laboratory Results 05/08/18 05:16 05/08/18 05:16 05/08/18 05/09/18 05/10/18 05:59 05:59 05:59 Intake Total 400 500 Balance 400 500 ICD10 Worksheet Patient Problems: Problems Problem Status Onset Cellulitis Acute Diabetic foot infection Acute Pseudomonas infection Acute Hyperglycemia Acute Leukocytosis Acute
--- NOTE | 2018-05-09 10:34 | PDMN ---
Medical Necessity Medical necessity: [facility] Systemic or Infectious Condition GRG and PGWS Wound and Skin Management GR47 y/o w/ L diabetic foot infection s/p debridement, unable to walk, significant pain. Wound cx show MRSA and pseudomonas. ID consult - assessed large open wound, determined high risk for progression w/o wound care, antibx. Surgical consult states foot is worse than post op. Will try drsg changes that can also debride, not eager to return to OR given pt hx of non-compliance, leaves AMA. IV opioids for pain management needed. WBC elevated,. hx FVL, recurrent DVTs/PEs, poorly controlled DM. Pt is homeless. Switch to IP status per MD order @[id number] for ongoing wound care.
--- NOTE | 2018-05-09 14:07 | ASMTCMCOM ---
CM Note CM Note Notes: Reviewed chart regarding discharge plan of care, pt's progress. PT recommends use of a front-wheeled walker with no PT followup. Per MD notes, pt not a great surgical candidate if he continues to leave AMA; pt currently being treated with iodine dressings and wound care. Discharge needs remain unclear at this time. CM will continue to follow. Discharge Plan: To be determined Date Signed: 05/09/2018 02:07 PM Electronically Signed By:Dorina Lujan RN
[2018-05-09] MEDS: INSULIN GLARGINE 100 UNITS/ML UNIT SC SCH (20:25)
[2018-05-10] MEDS: oxyCODONE IR 5 MG TAB PO PRN ×4 (07:29→21:37)
[2018-05-10] MEDS: INSULIN LISPRO 100 UNIT/ML SC SCH ×3 (07:40→17:31)
[2018-05-10] MEDS: ENOXAPARIN 80 MG/0.8 ML SYR SC SCH ×2 (07:40→21:38)
[2018-05-10] MEDS: DOXYCYCLINE HYCLATE 100 MG CAP/TAB PO SCH ×2 (07:40→21:37)
[2018-05-10] MEDS ORDERED: INSULIN GLARGINE 100 UNITS/ML UNIT SC SCH (07:45)
--- NOTE | 2018-05-10 09:18 | HOSPPROG ---
Hospitalist Progress Note Assessment/Plan: 47-year-old with diabetes and factor 5 Leiden with recurrent DVTs and PEs is admitted with left foot infection, status post I and D x2. He recently left AMA but returned when he was unable to ambulate. # left foot infection in a diabetic, cultures grew out MRSA and Pseudomonas. He is back with inability to ambulate in a homeless patient * Continue antibiotics, currently on doxycycline * Continue wound care * Surgery is following wound and will decide if he needs any further debridement and long-term wound care * Will have to figure out a disposition given the fact he is homeless and has been unable to tolerate pain with ambulation * Discussed with ID and surgery, wound has worsened and needs additional midnight stay for wound care # factor 5 Leiden: Currently on and anticoagulation due to recurrent DVTs and PEs # diabetes, blood sugars continue to be elevated * Increase glargine to 45 units daily and monitor Subjective: Patient is still having quite a bit of pain in his left foot. Objective: Vital Signs Temp Pulse Resp BP Pulse Ox 36.6 C 58 L 16 103/67 97 05/10/18 08:00 05/10/18 08:00 05/10/18 08:00 05/10/18 08:00 05/10/18 08:00 05/09/18 05/10/18 05/11/18 05:59 05:59 05:59 Intake Total 500 0 Balance 500 0 - Physical Exam Constitutional: no apparent distress Eyes: PERRL Ears, Nose, Mouth, Throat: moist mucous membranes Cardiovascular: No edema Respiratory: no respiratory distress Genitourinary: No lee in urethra Skin: warm, normal color, other (Wound not evaluated will await surgery evaluation) Musculoskeletal: full muscle strength Neurologic: AAOx3 Psychiatric: interacting appropriately ICD10 Worksheet Patient Problems: Problems Problem Status Onset Diabetic foot infection Acute Hyperglycemia Acute Leukocytosis Acute Cellulitis Acute Pseudomonas infection Acute
--- NOTE | 2018-05-10 14:44 | WOCRNPDOC ---
[facility] Advanced Assessment Note - Skin Integrity Problem, Advanced Assess Left Heel Dressing Type: Godwin Bandage, Iodoflex, Victor Manuel Dressing Description: Intact, Shadowed Exudate Color: Yellow Integumentary Issue Intervention: Dressing Changed Ashly Wound Tissue: Erythema, Painful/Tender Wound Bed Constitution: Mixed Loose & Adhered Slough/Eschar (probably), De- roofed Purulent Blister (original presentation 2 weeks or so ago) Site Measurement - Head-to-Toe Length X Width X Depth (cm): 8x6.5x approximately 1.5 depth but patient did not tolerate any touching of the wound so was unable to assess accurately Skin Integrity Problem Comment: Patient screamed non-stop despite premedication with IV pain medications. He absolutely would not tolerate even touching the wound let alone probing. Unable to clean wound properly for assessment. Much of iodoflex was dried and stuck to wound bed and could not be removed. Amy ROUSE was also in room for care and attempted to clean. Area was copiously flushed with ns. Wound care will sign off at this time as we are unable to provide bedside wound care for this patient. Please reconsult prn after OR debridement if patient can tolerate bedside care. Wet to dry placed.
--- NOTE | 2018-05-10 16:35 | SOAPPROG ---
SOAP Progress Note Assessment/Plan: Assessment/Plan: 47-year-old man with poorly controlled type 2 diabetes, homeless. Multiple admissions for left heel diabetic foot ulcer. Premedicated prior to exam, but still unable to fully evaluate due to pain Significant adherent slough in the base of the wounds Minimal foot swelling Discontinued iodine dressing as this was painful and applied damp to dry No periwound erythema Antibiotics per hospitalist and ID Today, patient is very eager to pursue aggressive treatment. He reports that he will not leave AMA and wants to try to save his leg. Will have Dr. Mitchell evaluate tomorrow to see if he is a good candidate for operative debridement S: Significant pain, reports still feels like somebody is taking a finger into his wound. No fevers or chills. O: Lying in bed, uncomfortable No increased work of breathing Show peripheral edema Wound was significant necrotic slough he tissue, no bishnu wound erythema, no purulence. Unable to evaluate up to the wound due to pain. Objective: Vital Signs Temp Pulse Resp BP Pulse Ox 36.6 C 58 L 16 103/67 97 05/10/18 08:00 05/10/18 08:00 05/10/18 08:00 05/10/18 08:00 05/10/18 08:00 05/09/18 05/10/18 05/11/18 05:59 05:59 05:59 Intake Total 500 0 Balance 500 0 ICD10 Worksheet Patient Problems: Problems Problem Status Onset Cellulitis Acute Diabetic foot infection Acute Pseudomonas infection Acute Hyperglycemia Acute Leukocytosis Acute
[2018-05-11] MEDS: oxyCODONE IR 5 MG TAB PO PRN ×5 (02:21→21:05)
[2018-05-11] MEDS: DOXYCYCLINE HYCLATE 100 MG CAP/TAB PO SCH ×2 (08:24→21:04)
[2018-05-11] MEDS: ENOXAPARIN 80 MG/0.8 ML SYR SC SCH ×2 (08:24→21:05)
[2018-05-11] MEDS: INSULIN LISPRO 100 UNIT/ML SC SCH (08:25)
--- NOTE | 2018-05-11 11:51 | SOAPPROG ---
SOAP Progress Note Assessment/Plan: Assessment/Plan: 47-year-old man with poorly controlled type 2 diabetes, homeless. Multiple admissions for left heel diabetic foot ulcer. OR tomorrow morning for debridement skin and soft tissue Consent signed and in chart NPO after midnight Hold morning Randy Will receive preop IV antibiotics - Vanco 1.25 per ID Nurse to change damp to dry dressing left lower extremity today. Discussed dispo planning with case management May apply wound vac/veraflo at time of surgery Objective: Vital Signs Temp Pulse Resp BP Pulse Ox 36.6 C 66 97 H 103/59 L 93 05/11/18 08:00 05/11/18 08:00 05/11/18 08:00 05/11/18 08:00 05/10/18 23:04 05/10/18 05/11/18 05/12/18 05:59 05:59 05:59 Intake Total 0 410 Balance 0 410 ICD10 Worksheet Patient Problems: Problems Problem Status Onset Cellulitis Acute Diabetic foot infection Acute Pseudomonas infection Acute Hyperglycemia Acute Leukocytosis Acute
[2018-05-11] MEDS: INSULIN LISPRO 100 UNIT/1 ML VIAL HIGH SC SCH ×3 (12:49→17:47)
--- NOTE | 2018-05-11 14:53 | HOSPPROG ---
Hospitalist Progress Note Assessment/Plan: 47-year-old with diabetes and factor 5 Leiden with recurrent DVTs and PEs is admitted with left foot infection, status post I and D x2. He recently left AMA but returned when he was unable to ambulate. # left foot infection in a diabetic, cultures grew out MRSA and Pseudomonas. He is back with inability to ambulate in a homeless patient * Continue antibiotics, currently on doxycycline * Continue wound care * Surgery is following wound and will proceed with surgery tomorrow for debridement. * Will have to figure out a disposition given the fact he is homeless and has been unable to tolerate pain with ambulation * Discussed with ID and surgery # factor 5 Leiden: Currently on and anticoagulation due to recurrent DVTs and PEs # diabetes, blood sugars continue to be elevated * Increase glargine to 50 units daily and monitor * Increase sliding scale to high dose Subjective: Patient continues to complain of pain in his left heel. No fevers or chills no chest pain or shortness of breath Objective: Vital Signs Temp Pulse Resp BP Pulse Ox 36.5 C 67 12 124/78 H 97 05/11/18 12:02 05/11/18 12:02 05/11/18 12:02 05/11/18 12:02 05/11/18 12:02 05/10/18 05/11/18 05/12/18 05:59 05:59 05:59 Intake Total 0 410 Balance 0 410 - Physical Exam Constitutional: uncomfortable Eyes: PERRL, anicteric sclera Ears, Nose, Mouth, Throat: moist mucous membranes Cardiovascular: regular rate and rhythym, no murmur, rub, or gallop Respiratory: no respiratory distress, no rales or rhonchi, clear to auscultation Gastrointestinal: soft, non-tender abdomen Skin: warm, other (Left wound on heel, I did not examine because of wound dressings. He is followed by surgery) Musculoskeletal: full muscle strength, no joint effusions Neurologic: AAOx3 Psychiatric: interacting appropriately ICD10 Worksheet Patient Problems: Problems Problem Status Onset Diabetic foot infection Acute Hyperglycemia Acute Leukocytosis Acute Cellulitis Acute Pseudomonas infection Acute
--- NOTE | 2018-05-11 16:53 | ASMTCMCOM ---
CM Note CM Note Notes: PADMA Reyes for Dr. Mitchell called to say they were taking patient back to surgery tomorrow for debridement of his foot. They will set patient up with a wound vac here in the hospital but if patient leaves we will have to address wound dressings since patient will be returning to the street and cannot take the wound vac with him. Patient is positive for MRSA. and has left the hospital 3 times AMA recently. Amy says the patient's foot infection is requiring the debridement due to level of infection and healing process. CM to follow. Date Signed: 05/11/2018 04:53 PM Electronically Signed By:Tesha Griffith LCSW
[2018-05-11] MEDS: INSULIN GLARGINE 100 UNITS/ML UNIT SC SCH (22:50)
[2018-05-12] MEDS: oxyCODONE IR 5 MG TAB PO PRN ×5 (01:54→22:11)
[2018-05-12] MEDS: DOXYCYCLINE HYCLATE 100 MG CAP/TAB PO SCH ×2 (07:28→22:11)
[2018-05-12] MEDS: INSULIN LISPRO 100 UNIT/1 ML VIAL HIGH SC SCH ×3 (08:30→17:55)
[2018-05-12] MEDS ORDERED: BUPIVACAINE 0.5% 30 ML SDV ONE (08:46)
[2018-05-12] MEDS ORDERED: LR 1,000 ML IV ONE (08:49)
[2018-05-12] MEDS ORDERED: VANCOMYCIN 1.25 GM in NS 250 ML IV ONE (09:00)
[2018-05-12] MEDS ORDERED: DIAZEPAM 5 MG TAB PO ONE (09:21)
--- NOTE | 2018-05-12 09:26 | PDANEPAE ---
ANE History of Present Illness 47 yo untreated diabetic with non healing L foot ulcer. ANE Past Medical History - Cardiovascular History Hx Hypertension: No Hx Arrhythmias: No Hx Chest Pain: No Hx Coronary Artery / Peripheral Vascular Disease: No Hx CHF / Valvular Disease: No Hx Palpitations: No - Pulmonary History Hx Oxygen in Use at Home: No Hx Sleep Apnea: No Sleep Apnea Screening Result - Last Documented: Negative - Endocrine History Hx Diabetes: Yes Hypothyroid: No Hyperthyroid: No Obesity: no - Neurological & Psychiatric Hx Hx Neurological and Psychiatric Disorders: No - Other Health History Other Health History: factor V Leiden deficiency with h/o DVT and PE in the past. Pt cannot remember when last blood clot was, but believes it has been more than 1 year. - Chronic Pain History Chronic Pain: No ANE Review of Systems Review of Systems: - Systems Skin: Reports: other (ulcer R heel) ANE Patient History - Allergies Allergies/Adverse Reactions: No Known Allergies Allergy (Verified 05/02/18 23:25) - Home Medications Home Medications: NK [No Known Home Meds] 05/03/18 [Last Taken Unknown] - NPO status NPO Status: no food or drink >8 hours NPO Since - Liquids (Date): 05/12/18 NPO Since - Liquids (Time): 00:00 NPO Since - Solids (Date): 05/12/18 NPO Since - Solids (Time): 00:00 - Anes Hx Anes Hx: no prior problems - Smoking Hx Smoking Status: Heavy smoker Marijuana use: Yes - Alcohol Use Alcohol Use: None (quit about 2 years ago) ANE Labs/Vital Signs - Labs Result Diagrams: 05/08/18 05:16 05/08/18 05:16 - Vital Signs Blood Pressure: 107/62 Heart Rate: 63 Respiratory Rate: 16 O2 Sat (%): 96 Height: 190.5 cm Weight: 86.8 kg ANE Physical Exam - Airway Mallampati Score: Class 2 Mouth exam: poor dentition - Pulmonary Pulmonary: reduced air movement - Cardiovascular Cardiovascular: regular rate and rhythym - ASA Status ASA Status: III ANE Anesthesia Plan Anesthesia Plan: GA w LMA
[2018-05-12] MEDS ORDERED: fentaNYL 100 MCG/2 ML INJ ONE ×5 (09:33→10:57)
[2018-05-12] MEDS ORDERED: PROPOFOL 200 MG/20 ML VIAL ONE (09:33)
[2018-05-12] MEDS ORDERED: ONDANSETRON 4 MG/2 ML VIAL ONE ×2 (09:33→11:24)
[2018-05-12] MEDS ORDERED: LIDOCAINE 2% 2 ML INJ ONE (09:33)
[2018-05-12] MEDS ORDERED: INSULIN REGULAR HUMAN 100 UNIT/ML UNIT SC ONE (09:55)
[2018-05-12] MEDS ORDERED: PROMETHAZINE HCL 25 MG/ML INJ IVP PRN (09:59)
[2018-05-12] MEDS ORDERED: LR 500 ML IV PRN (09:59)
[2018-05-12] MEDS ORDERED: NALOXONE HCL 0.4 MG/ML INJ IVP PRN (09:59)
[2018-05-12] MEDS ORDERED: ACETAMINOPHEN 500 MG TAB PO PRN (09:59)
[2018-05-12] MEDS ORDERED: ALBUTEROL 3 ML DEYVIAL IH PRN (09:59)
[2018-05-12] MEDS ORDERED: oxyCODONE IR 5 MG TAB PO PRN (09:59)
--- NOTE | 2018-05-12 10:07 | POSTOPPROG ---
Post Op Note Date of Operation: 05/12/18 Surgeon: Danni Mitchell Anesthesiologist: letty Anesthesia: GET(General Endotracheal) Pre-op Diagnosis: LLE diabetic foot ulcer Post-op Diagnosis: same Indication: 47yo M uncontrolled DM with chronic ulcer Procedure: debride skin soft tissue with wound vac Findings: 5.2 x2.8 x1.8 no bone exposed Inf/Abcess present in the surg proc area at time of surgery?: Yes Depth: Superfical (Skin SQ) EBL: Minimal Drains: Wound Vac
[2018-05-12] MEDS ORDERED: oxyCODONE IR 5 MG TAB ONE (10:18)
[2018-05-12] MEDS ORDERED: INSULIN REGULAR HUMAN 100 UNIT/ML UNIT ONE ×2 (10:23→10:24)
[2018-05-12] MEDS: fentaNYL 100 MCG/2 ML INJ IVP PRN ×4 (10:28→11:04)
[2018-05-12] MEDS ORDERED: ACETAMINOPHEN 500 MG TAB ONE (10:57)
[2018-05-12] MEDS ORDERED: NS 500 ML IV ONE (13:30)
--- NOTE | 2018-05-12 14:30 | GOP ---
DATE OF OPERATION: 05/12/2018 SURGEON: Danni Mitchell MD ANESTHESIA: General. ANESTHESIOLOGIST: Dr. Irena Bright PREOPERATIVE DIAGNOSIS: Left lower extremity diabetic foot ulcer. POSTOPERATIVE DIAGNOSIS: Left lower extremity diabetic foot ulcer. PROCEDURE PERFORMED: Debridement skin and soft tissue to the level of the fat with application of wo und VAC. FINDINGS: Wound measures 5.2 x 2.8 x 1.8 cm. No bone exposed. ESTIMATED BLOOD LOSS: Minimal. INDICATIONS: The patient is a 47-year-old who I took to the operating room to debride an ulcer in hi s left lower extremity. He was unable to tolerate. He left AMA and then was readmitted. The wound had worsened. We had placed an iodine based dressing on the wound, but he would not allow us to darlyn ve it to evaluate the wound. He is brought into the operating room to adequately evaluate and debrid e the wound. DESCRIPTION OF PROCEDURE: Patient was brought into the operating room, placed supine on the table an d general anesthesia was administered. His left lower extremity was prepped and draped in the usual sterile fashion. I used Misonix to debride skin, soft tissue, and fat to the healthy tissue. The wo und measured 5.2 x 2.8 x 1.8 cm. I placed a VeraFlo wound VAC with Vashe. He was awakened in the op erating room, extubated, and transferred to PACU in stable condition. /[id number]/MODL
--- NOTE | 2018-05-12 15:19 | HOSPPROG ---
Hospitalist Progress Note Assessment/Plan: 47-year-old with diabetes and factor 5 Leiden with recurrent DVTs and PEs is admitted with left foot infection, status post I and D x2. He recently left AMA but returned when he was unable to ambulate. # left foot infection in a diabetic, cultures grew out MRSA and Pseudomonas. He is back with inability to ambulate in a homeless patient * Continue antibiotics, currently on doxycycline * Continue wound care * Will have to figure out a disposition given the fact he is homeless and has been unable to tolerate pain with ambulation * Discussed with ID and surgery # factor 5 Leiden: Currently on and anticoagulation due to recurrent DVTs and PEs # diabetes, blood sugars continue to be elevated * Increase glargine to 50 units yesterday. Will follow clinical course * Increase sliding scale to high dose # s/p left foot debridement -post op care per surgery #Acute pain -provide pain meds, shorter frequency Subjective: had surgery today. some hypotension initially but now better. still with lots of pain Objective: Vital Signs Temp Pulse Resp BP Pulse Ox 36.4 C 66 16 111/69 97 05/12/18 15:02 05/12/18 15:02 05/12/18 15:02 05/12/18 15:02 05/12/18 15:02 05/11/18 05/12/18 05/13/18 05:59 05:59 05:59 Intake Total 410 700 Balance 410 700 - Physical Exam Constitutional: no apparent distress Eyes: PERRL Ears, Nose, Mouth, Throat: moist mucous membranes, hearing normal Cardiovascular: regular rate and rhythym, No edema Respiratory: no respiratory distress, no rales or rhonchi, clear to auscultation Gastrointestinal: normoactive bowel sounds, soft, non-tender abdomen Skin: warm Neurologic: AAOx3 Psychiatric: interacting appropriately, not anxious, not encephalopathic Lymph, Heme, Immunologic: No petechiae ICD10 Worksheet Patient Problems: Problems Problem Status Onset Cellulitis Acute Diabetic foot infection Acute Pseudomonas infection Acute Hyperglycemia Acute Leukocytosis Acute
[2018-05-12] MEDS: ENOXAPARIN 80 MG/0.8 ML SYR SC SCH (22:12)
[2018-05-12] MEDS: INSULIN GLARGINE 100 UNITS/ML UNIT SC SCH (22:19)
[2018-05-13] MEDS: oxyCODONE IR 5 MG TAB PO PRN ×5 (02:46→19:55)
[2018-05-13 05:35] LABS: PLATELET COUNT 344 10^3/uL (150-400)
[2018-05-13] MEDS: INSULIN LISPRO 100 UNIT/1 ML VIAL HIGH SC SCH ×3 (07:45→19:05)
[2018-05-13] MEDS: DOXYCYCLINE HYCLATE 100 MG CAP/TAB PO SCH ×2 (08:56→19:50)
[2018-05-13] MEDS: ENOXAPARIN 80 MG/0.8 ML SYR SC SCH ×2 (08:56→19:51)
--- NOTE | 2018-05-13 13:09 | HOSPPROG ---
Hospitalist Progress Note Assessment/Plan: 47-year-old with diabetes and factor 5 Leiden with recurrent DVTs and PEs is admitted with left foot infection, status post I and D x2. He recently left AMA but returned when he was unable to ambulate. # left foot infection in a diabetic, cultures grew out MRSA and Pseudomonas. He is back with inability to ambulate in a homeless patient * Continue antibiotics, currently on doxycycline * Continue wound care * Will have to figure out a disposition given the fact he is homeless and has been unable to tolerate pain with ambulation * Discussed with ID and surgery # factor 5 Leiden: Currently on and anticoagulation due to recurrent DVTs and PEs -Lovenox bridge. Start Coumadin today # diabetes, blood sugars continue to be elevated * cont with current insulin regimen. Glucose over the past 24 hrs has been at target * Increase sliding scale to high dose # s/p left foot debridement -post op care per surgery -has wound vac in place. He will not be able to take this if d/c to streets #Acute pain -pain mgmt Plan: CM is following. Unclear what placement options this patient has. Subjective: left foot pain. Hx of multiple clots. Has IVC filter in place Objective: Vital Signs Temp Pulse Resp BP Pulse Ox 36.8 C 66 16 120/64 95 05/13/18 07:41 05/13/18 07:41 05/13/18 07:41 05/13/18 07:41 05/13/18 07:41 Laboratory Results 05/13/18 04:25 05/13/18 04:25 05/12/18 05/13/18 05/14/18 05:59 05:59 05:59 Intake Total 700 Output Total 600 300 Balance 100 -300 - Physical Exam Constitutional: no apparent distress Eyes: PERRL, EOMI Ears, Nose, Mouth, Throat: moist mucous membranes, hearing normal Cardiovascular: regular rate and rhythym, No edema Respiratory: no respiratory distress, no rales or rhonchi, clear to auscultation Gastrointestinal: normoactive bowel sounds, soft, non-tender abdomen Skin: warm Neurologic: AAOx3 Psychiatric: interacting appropriately, not anxious, not encephalopathic ICD10 Worksheet Patient Problems: Problems Problem Status Onset Cellulitis Acute Diabetic foot infection Acute Pseudomonas infection Acute Hyperglycemia Acute Leukocytosis Acute
[2018-05-13] MEDS ORDERED: WARFARIN SODIUM 5 MG TAB PO ONE (16:00)
--- NOTE | 2018-05-13 17:28 | SOAPPROG ---
SOAP Progress Note Assessment/Plan: Assessment: 47 year DM s/p excisional debridement of wound on right foot. and redebridement Quality of tissue very good Continue wound vac Need to look into knee scooter and safe discharge planning Difficult due to wound on bottom of foot and DM and social situation Periwound stable S: Pain on bottom of foot. No achilles pain O: Vac intact Plan: 05/08/18 11:19 05/09/18 10:15 05/13/18 17:19 Objective: Vital Signs Temp Pulse Resp BP Pulse Ox 36.7 C 58 L 16 129/72 H 97 05/13/18 16:00 05/13/18 16:00 05/13/18 16:00 05/13/18 16:00 05/13/18 16:00 Laboratory Results 05/13/18 04:25 05/13/18 04:25 05/12/18 05/13/18 05/14/18 05:59 05:59 05:59 Intake Total 700 Output Total 600 300 Balance 100 -300 ICD10 Worksheet Patient Problems: Problems Problem Status Onset Cellulitis Acute Diabetic foot infection Acute Pseudomonas infection Acute Hyperglycemia Acute Leukocytosis Acute
[2018-05-13] MEDS: INSULIN GLARGINE 100 UNITS/ML UNIT SC SCH (21:49)
[2018-05-13] MEDS: traMADol 50 MG TAB PO PRN (21:49)
[2018-05-14] MEDS: oxyCODONE IR 5 MG TAB PO PRN ×3 (05:49→20:39)
[2018-05-14 06:10] LABS: INR 0.94 (0.83-1.16); PROTIME(PATIENT) 12.8 SEC (12.0-15.0)
[2018-05-14] MEDS: ENOXAPARIN 80 MG/0.8 ML SYR SC SCH ×2 (09:26→20:38)
[2018-05-14] MEDS: DOXYCYCLINE HYCLATE 100 MG CAP/TAB PO SCH ×2 (09:26→20:39)
[2018-05-14] MEDS: INSULIN LISPRO 100 UNIT/1 ML VIAL HIGH SC SCH ×3 (09:28→17:11)
--- NOTE | 2018-05-14 10:31 | SOAPPROG ---
SOAP Progress Note Assessment/Plan: Assessment/Plan: 47-year-old man with poorly controlled type 2 diabetes, homeless. Multiple admissions for left heel diabetic foot ulcer. S/p excisional debridement Veraflo wound vac change MWF. naprapath to change dressing Knee scooter and safe d/c planning Oral antibiotics Appreciate hospitalist management of comorbidities S: reports pain 5/10. difficult time sleeping due to pain O: Veraflo intact without leaks. No periwound erythema. 05/14/18 10:36 Objective: Vital Signs Temp Pulse Resp BP Pulse Ox 36.8 C 65 12 129/78 H 95 05/14/18 07:35 05/14/18 07:35 05/14/18 07:35 05/14/18 07:35 05/14/18 07:35 Laboratory Results 05/13/18 04:25 05/13/18 04:25 05/13/18 05/14/18 05/15/18 05:59 05:59 05:59 Intake Total 700 Output Total 600 1000 1150 Balance 100 -1000 -1150 PT 12.8 SEC (12.0-15.0) 05/14/18 05:30 INR 0.94 (0.83-1.16) 05/14/18 05:30 ICD10 Worksheet Patient Problems: Problems Problem Status Onset Cellulitis Acute Diabetic foot infection Acute Pseudomonas infection Acute Hyperglycemia Acute Leukocytosis Acute
--- NOTE | 2018-05-14 11:04 | ASMTCMCOM ---
CM Note CM Note Notes: Spoke w/, pt needs SNF but still has not worked with PT, stating he is still in too much pain. There is concern for compliance with the 30 day stay as he has a history of leaving AMA x 3. CM will continue to watch pt's progress, he will be here through the weekend. DC Plan: TBD Date Signed: 05/14/2018 11:01 AM Electronically Signed By:Sandra Porras RN
--- NOTE | 2018-05-14 11:56 | HOSPPROG ---
Hospitalist Progress Note Assessment/Plan: 47-year-old with diabetes and factor 5 Leiden with recurrent DVTs and PEs is admitted with left foot infection, status post I and D x2. He recently left AMA but returned when he was unable to ambulate. # left foot infection in a diabetic, cultures grew out MRSA and Pseudomonas. He is back with inability to ambulate in a homeless patient * Continue antibiotics, currently on doxycycline. Can likely stop tomorrow. * Continue wound care * Will have to figure out a disposition given the fact he is homeless and has been unable to tolerate pain with ambulation * Discussed with ID and surgery # factor 5 Leiden: Currently on and anticoagulation due to recurrent DVTs and PEs -Lovenox bridge. Coumadin per pharmacy # diabetes, blood sugars continue to be elevated * change to BID dosing for better glucose control # s/p left foot debridement -post op care per surgery -has wound vac in place. He will not be able to take this if d/c to streets #Acute pain -pain mgmt Plan: CM is following. we discussed that he would benefit from SNF and pt agrees to 30 days of this if we are able to set up. CM to look into this. Subjective: lots of pain. Some worry about the possibility of changing the wound vac today and the pain that this would cause him. Objective: Vital Signs Temp Pulse Resp BP Pulse Ox 36.8 C 65 12 129/78 H 95 05/14/18 07:35 05/14/18 07:35 05/14/18 07:35 05/14/18 07:35 05/14/18 07:35 Laboratory Results 05/13/18 04:25 05/13/18 04:25 05/13/18 05/14/18 05/15/18 05:59 05:59 05:59 Intake Total 700 Output Total 600 1000 1150 Balance 100 -1000 -1150 PT 12.8 SEC (12.0-15.0) 05/14/18 05:30 INR 0.94 (0.83-1.16) 05/14/18 05:30 - Physical Exam Constitutional: no apparent distress Eyes: PERRL Ears, Nose, Mouth, Throat: moist mucous membranes Cardiovascular: regular rate and rhythym, No edema Respiratory: no respiratory distress Gastrointestinal: No ascites, No distension Skin: warm Neurologic: AAOx3 Psychiatric: interacting appropriately, not anxious, not encephalopathic Lymph, Heme, Immunologic: No petechiae ICD10 Worksheet Patient Problems: Problems Problem Status Onset Cellulitis Acute Diabetic foot infection Acute Pseudomonas infection Acute Hyperglycemia Acute Leukocytosis Acute
[2018-05-14] MEDS: LIDOCAINE HCL 4% TOPICAL SOLN 50ML TP PRN (12:03)
--- NOTE | 2018-05-14 13:39 | WOCRNPDOC ---
WOCRN Advanced Assessment Note - Skin Integrity Problem, Advanced Assess Left Heel Dressing Type: Wound Vac Dressing Description: Clean/Dry, Intact Exudate Amount: Minimal Exudate Characteristic(s): Serosanguinous Integumentary Issue Intervention: Dressing Changed Ashly Wound Tissue: Blanching, Macerated, Painful/Tender Ashly Wound Swelling: Mild Wound Bed Color: Red, Yellow Wound Bed Constitution: Granulation Tissue (30%), Red/[place] - Non Granular Tissue (40%), Adhered Slough (30%) Wound Edges: Attached Site Measurement - Head-to-Toe Length X Width X Depth (cm): 3x6.5x1.6 Skin Integrity Problem Comment: Patient premedicated with 2mg IV morphine and 15mg PO Oxycodone IR by Charu CALDERON. 10ml topical 4% liquid lidocaine used throughout the wound vac change. Patient was incredibly anxious about having the wound vac changed. The entire procedure was explained prior to starting and the patient was given numerous breaks throughout. The patient screamed during the majority of the dressing change. Wound vac drape was removed with adhesive remover and the foam was moistened with saline to aid in removal. Wound bed cleansed with NS and gauze. Periwound skin prepped with mastisol and then draped. One piece of fenestrated manzo foam was placed in wound bed with a piece of the thinner manzo foam placed on top. A third piece that was slightly larger than the wound was placed on top for track pad placement. The wound was draped and Veraflo was started at -125mmHg with 8ml instillation of Vashe with a dwell time of 7 minutes every [address] Mitchell updated on status of wound. Charu CALDERON in room to assist. Wound care will round [facility] for vac dressing change.
[2018-05-14] MEDS ORDERED: WARFARIN SODIUM 5 MG TAB PO ONE (16:00)
[2018-05-14] MEDS: INSULIN GLARGINE 100 UNITS/ML UNIT SC SCH (20:39)
[2018-05-15] MEDS: oxyCODONE IR 5 MG TAB PO PRN ×5 (01:19→22:05)
[2018-05-15] MEDS: INSULIN LISPRO 100 UNIT/1 ML VIAL HIGH SC SCH ×3 (08:00→18:07)
[2018-05-15] MEDS: INSULIN GLARGINE 100 UNITS/ML UNIT SC SCH ×2 (08:00→20:35)
[2018-05-15] MEDS: ENOXAPARIN 80 MG/0.8 ML SYR SC SCH ×2 (08:01→20:35)
--- NOTE | 2018-05-15 09:20 | SOAPPROG ---
SOAP Progress Note Assessment/Plan: Assessment/Plan: 47-year-old man with poorly controlled type 2 diabetes, homeless. Multiple admissions for left heel diabetic foot ulcer. S/p excisional debridement. No new orders today. Wound vac change on Thursday. Continue care. Veraflo wound vac change MWF. Knee scooter and safe d/c planning. Oral antibiotics. Appreciate hospitalist management of comorbidities. S: c/o pain. says pain meds are helping. getting up to bathroom on own he says-- just using L forefoot and avoiding heel pressure. O: Veraflo intact without leaks. No periwound erythema. Good pedal pulses. 05/15/18 09:18 Objective: Vital Signs Temp Pulse Resp BP Pulse Ox 36.5 C 61 16 110/72 97 05/15/18 07:44 05/15/18 07:44 05/15/18 07:44 05/15/18 07:44 05/15/18 07:44 Laboratory Results 05/13/18 04:25 05/13/18 04:25 05/14/18 05/15/18 05/16/18 05:59 05:59 05:59 Intake Total 830 Output Total 1000 1150 Balance -1000 -320 PT 12.8 SEC (12.0-15.0) 05/14/18 05:30 INR 0.94 (0.83-1.16) 05/14/18 05:30 ICD10 Worksheet Patient Problems: Problems Problem Status Onset Cellulitis Acute Diabetic foot infection Acute Pseudomonas infection Acute Hyperglycemia Acute Leukocytosis Acute
--- NOTE | 2018-05-15 13:53 | HOSPPROG ---
Hospitalist Progress Note Assessment/Plan: 47-year-old with diabetes and factor 5 Leiden with recurrent DVTs and PEs is admitted with left foot infection, status post I and D x2. He recently left AMA but returned when he was unable to ambulate. # left foot infection in a diabetic, cultures grew out MRSA and Pseudomonas. He is back with inability to ambulate in a homeless patient * Continue antibiotics, currently on doxycycline. Can likely stop tomorrow. * Continue wound care * Will have to figure out a disposition given the fact he is homeless and has been unable to tolerate pain with ambulation * Discussed with ID and surgery # factor 5 Leiden: Currently on and anticoagulation due to recurrent DVTs and PEs -Lovenox bridge. Coumadin per pharmacy # diabetes, blood sugars continue to be elevated * Lantus BID dosing for better glucose control # s/p left foot debridement -post op care per surgery -has wound vac in place. He will not be able to take this if d/c to streets #Acute pain -pain mgmt Plan: CM is following. we discussed that he would benefit from SNF and pt agrees to 30 days of this if we are able to set up. CM to look into this. no changes to insulin today as it was just changed Subjective: glucose reviewed, still with some hyperglycemia, but much improved. he reports occassional pain Objective: Vital Signs Temp Pulse Resp BP Pulse Ox 36.5 C 61 16 110/72 97 05/15/18 07:44 05/15/18 07:44 05/15/18 07:44 05/15/18 07:44 05/15/18 07:44 Laboratory Results 05/13/18 04:25 05/13/18 04:25 05/14/18 05/15/18 05/16/18 05:59 05:59 05:59 Intake Total 830 Output Total 1000 1150 900 Balance -1000 -320 -900 PT 12.8 SEC (12.0-15.0) 05/14/18 05:30 INR 0.94 (0.83-1.16) 05/14/18 05:30 - Physical Exam Constitutional: no apparent distress Eyes: PERRL Ears, Nose, Mouth, Throat: moist mucous membranes, hearing normal Cardiovascular: regular rate and rhythym Respiratory: no respiratory distress Gastrointestinal: normoactive bowel sounds Skin: warm Neurologic: AAOx3 Psychiatric: interacting appropriately, not anxious, not encephalopathic Lymph, Heme, Immunologic: No petechiae ICD10 Worksheet Patient Problems: Problems Problem Status Onset Cellulitis Acute Diabetic foot infection Acute Pseudomonas infection Acute Hyperglycemia Acute Leukocytosis Acute
[2018-05-15] MEDS ORDERED: WARFARIN SODIUM 5 MG TAB PO ONE (15:00)
--- NOTE | 2018-05-15 16:39 | ASMTCMCOM ---
CM Note CM Note Notes: Spoke with therapists today and asked them to add pt to list for tomorrow. Pt verbally agreed to work with PT tomorrow. Referrals sent to various SNFs in the [facility] area. PASSR completed. ULTC 100 completed and faxed to [facility]. Per RN pt has willingness and capacity to be cooperative but is reactive when he feels he is being blamed for "not participating" and less likely to be able to advocate for himself. D/C Plan: SNF rehab Date Signed: 05/15/2018 04:38 PM Electronically Signed By:Virgie Cleveland
[2018-05-16 05:32] LABS: INR 1.21 (0.83-1.16); PROTIME(PATIENT) 15.5 SEC (12.0-15.0)
[2018-05-16] MEDS: INSULIN LISPRO 100 UNIT/1 ML VIAL HIGH SC SCH ×3 (08:47→18:24)
[2018-05-16] MEDS: ENOXAPARIN 80 MG/0.8 ML SYR SC SCH ×2 (08:47→20:56)
[2018-05-16] MEDS: oxyCODONE IR 5 MG TAB PO PRN ×3 (08:48→20:55)
[2018-05-16] MEDS: INSULIN GLARGINE 100 UNITS/ML UNIT SC SCH (08:48)
--- NOTE | 2018-05-16 09:32 | SOAPPROG ---
SOAP Progress Note Assessment/Plan: Assessment/Plan: 47-year-old man with poorly controlled type 2 diabetes, homeless. Multiple admissions for left heel diabetic foot ulcer. S/p excisional debridement. No new orders today. Veraflo component of vac failing. To good suction now, but without veraflo. Wound vac change on Thursday. Continue care. Discussed with RNs. Veraflo wound vac change MWF. Knee scooter and safe d/c planning. Oral antibiotics. Appreciate hospitalist management of comorbidities. S: c/o pain, but pain meds helping. O: Vac to suction. No periwound erythema. Good pedal pulses. 05/16/18 09:30 Objective: Vital Signs Temp Pulse Resp BP Pulse Ox 36.6 C 66 16 124/69 H 96 05/16/18 08:00 05/16/18 08:00 05/16/18 08:00 05/16/18 08:00 05/16/18 08:00 Laboratory Results 05/13/18 04:25 05/13/18 04:25 05/15/18 05/16/18 05/17/18 05:59 05:59 05:59 Intake Total 830 1100 Output Total 1150 1400 Balance -320 -300 PT 15.5 SEC (12.0-15.0) H 05/16/18 04:45 INR 1.21 (0.83-1.16) H 05/16/18 04:45 ICD10 Worksheet Patient Problems: Problems Problem Status Onset Cellulitis Acute Diabetic foot infection Acute Pseudomonas infection Acute Hyperglycemia Acute Leukocytosis Acute
--- NOTE | 2018-05-16 11:40 | HOSPPROG ---
Hospitalist Progress Note Assessment/Plan: 47-year-old with diabetes and factor 5 Leiden with recurrent DVTs and PEs is admitted with left foot infection, status post I and D x2. He recently left AMA but returned when he was unable to ambulate. # left foot infection in a diabetic, cultures grew out MRSA and Pseudomonas. * abx (Doxy) has been stopped s/p I & D. Had about a weeks of abx * Continue wound care # factor 5 Leiden: Currently on and anticoagulation due to recurrent DVTs and PEs -Lovenox bridge. Coumadin per pharmacy # diabetes, blood sugars continue to be elevated * Hyperglycemia in a.m. mostly. Will increase nightly Lantus. Cont daily Lantus as is. Adjust as needed # s/p left foot debridement -post op care per surgery -has wound vac in place. He will not be able to take this if d/c to [place] #Acute pain -pain mgmt Plan: CM is following. we discussed that he would benefit from SNF and pt agrees to 30 days of this if we are able to set up. CM to look into this. adjust insulin per above the pt is currently off abx. Subjective: no cp or sob. no n/v. pain is well controlled. Had some hyperglycemia this morning Objective: Vital Signs Temp Pulse Resp BP Pulse Ox 36.6 C 66 16 124/69 H 96 05/16/18 08:00 05/16/18 08:00 05/16/18 08:00 05/16/18 08:00 05/16/18 08:00 Laboratory Results 05/13/18 04:25 05/13/18 04:25 05/15/18 05/16/18 05/17/18 05:59 05:59 05:59 Intake Total 830 1100 Output Total 1150 1400 Balance -320 -300 PT 15.5 SEC (12.0-15.0) H 05/16/18 04:45 INR 1.21 (0.83-1.16) H 05/16/18 04:45 - Physical Exam Constitutional: no apparent distress Eyes: PERRL, EOMI Ears, Nose, Mouth, Throat: moist mucous membranes, hearing normal Cardiovascular: regular rate and rhythym, No edema Respiratory: no respiratory distress, no rales or rhonchi, clear to auscultation Gastrointestinal: normoactive bowel sounds, soft, non-tender abdomen Skin: warm Neurologic: AAOx3 Psychiatric: interacting appropriately, not anxious Lymph, Heme, Immunologic: No petechiae ICD10 Worksheet Patient Problems: Problems Problem Status Onset Cellulitis Acute Diabetic foot infection Acute Pseudomonas infection Acute Hyperglycemia Acute Leukocytosis Acute
--- NOTE | 2018-05-16 11:55 | ASMTCMCOM ---
CM Note CM Note Notes: [facility] can admit. They are waiting for [facility]. Date Signed: 05/16/2018 11:54 AM Electronically Signed By:Sheryl Thompson LCSW
[2018-05-16] MEDS ORDERED: WARFARIN SODIUM 5 MG TAB PO ONE (16:00)
[2018-05-16] MEDS ORDERED: INSULIN GLARGINE 100 UNITS/ML UNIT SC SCH (21:00)
[2018-05-17] MEDS: traMADol 50 MG TAB PO PRN (05:12)
[2018-05-17 05:24] LABS: INR 1.37 (0.83-1.16)
[2018-05-17] MEDS: oxyCODONE IR 5 MG TAB PO PRN ×2 (08:53→12:25)
[2018-05-17] MEDS: INSULIN LISPRO 100 UNIT/1 ML VIAL HIGH SC SCH ×3 (08:54→18:13)
[2018-05-17] MEDS: ENOXAPARIN 80 MG/0.8 ML SYR SC SCH ×2 (08:54→20:47)
[2018-05-17] MEDS: INSULIN GLARGINE 100 UNITS/ML UNIT SC SCH ×2 (08:55→20:48)
--- NOTE | 2018-05-17 11:51 | HOSPPROG ---
Hospitalist Progress Note Assessment/Plan: 47-year-old with diabetes and factor 5 Leiden with recurrent DVTs and PEs is admitted with left foot infection, status post I and D x2. He recently left AMA but returned when he was unable to ambulate. # left foot infection in a diabetic, cultures grew out MRSA and Pseudomonas. * abx (Doxy) has been stopped s/p I & D. Had about a weeks of abx * Continue wound care # factor 5 Leiden: Currently on and anticoagulation due to recurrent DVTs and PEs -Lovenox bridge. Coumadin per pharmacy, INR 1.37 this AM # diabetes, blood sugars continue to be elevated * Hypoglycemic this AM, will decrease night Lantus to 25 units, Cont daily Lantus as is. Adjust as needed # s/p left foot debridement -post op care per surgery -has wound vac in place. He will not be able to take this if d/c to streets #Acute pain -pain mgmt Plan: CM is following. we discussed that he would benefit from SNF and pt agrees to 30 days of this if we are able to set up. CM to look into this. adjust insulin per above the pt is currently off abx. Subjective: Patient reports pain in lower extremity Objective: Vital Signs Temp Pulse Resp BP Pulse Ox 36.6 C 65 18 119/76 95 05/17/18 08:35 05/17/18 08:35 05/17/18 08:35 05/17/18 08:35 05/17/18 08:35 Laboratory Results 05/13/18 04:25 05/13/18 04:25 05/16/18 05/17/18 05/18/18 05:59 05:59 05:59 Intake Total 1100 20 Output Total 1400 Balance -300 20 PT 17.0 SEC (12.0-15.0) H 05/17/18 04:17 INR 1.37 (0.83-1.16) H 05/17/18 04:17 - Physical Exam Constitutional: no apparent distress Eyes: PERRL Ears, Nose, Mouth, Throat: moist mucous membranes Cardiovascular: regular rate and rhythym Respiratory: no respiratory distress Gastrointestinal: normoactive bowel sounds Genitourinary: no bladder tenderness Skin: warm, other (Wound vac in place ) Musculoskeletal: full muscle strength Neurologic: AAOx3 Psychiatric: interacting appropriately ICD10 Worksheet Patient Problems: Problems Problem Status Onset Cellulitis Acute Diabetic foot infection Acute Pseudomonas infection Acute Hyperglycemia Acute Leukocytosis Acute
--- NOTE | 2018-05-17 12:11 | ASMTCMCOM ---
CM Note CM Note Notes: Vera with [facility] will be here tomorrow to evaluate patient. [facility] can take patient pending [facility]'s approval. CM will follow. Date Signed: 05/17/2018 12:09 PM Electronically Signed By:Tesha Griffith LCSW
--- NOTE | 2018-05-17 13:02 | SOAPPROG ---
SOAP Progress Note Assessment/Plan: Assessment/Plan: 47yo M with poorly controlled type 2 diabetes, homeless. Multiple admissions for left heel diabetic foot ulcer. S/p excisional debridement. Continue wound vac, change today by used car manager Vac change MWF. Knee scooter Oral antibiotics completed Appreciate hospitalist management of comorbidities. Dispo: ok to DC to [facility] with wound vac change 3x/week and follow-up at outpatient wound healing center in 1 week. Consider amniofill prior to DC under vac? S: c/o pain with dressing changes, stable. O: Laying in bed, comfortable, NAD Vac to suction. No periwound erythema 05/17/18 15:31 Objective: Vital Signs Temp Pulse Resp BP Pulse Ox 36.6 C 65 18 119/76 95 05/17/18 08:35 05/17/18 08:35 05/17/18 08:35 05/17/18 08:35 05/17/18 08:35 Laboratory Results 05/13/18 04:25 05/13/18 04:25 05/16/18 05/17/18 05/18/18 05:59 05:59 05:59 Intake Total 1100 20 Output Total 1400 Balance -300 20 PT 17.0 SEC (12.0-15.0) H 05/17/18 04:17 INR 1.37 (0.83-1.16) H 05/17/18 04:17 ICD10 Worksheet Patient Problems: Problems Problem Status Onset Cellulitis Acute Diabetic foot infection Acute Pseudomonas infection Acute Hyperglycemia Acute Leukocytosis Acute
[2018-05-17] MEDS: LIDOCAINE HCL 4% TOPICAL SOLN 50ML TP PRN (14:01)
--- NOTE | 2018-05-17 15:37 | WOCRNPDOC ---
WOCRN Advanced Assessment Note - Skin Integrity Problem, Advanced Assess Left Heel Dressing Type: Wound Vac, Other Other Dressing Type: Veraflo foam x2 Dressing Description: Clean/Dry, Intact Closure Description: Not Approximated Exudate Amount: Minimal Exudate Color: Reddish/Yellow Exudate Characteristic(s): Serosanguinous Integumentary Issue Intervention: Dressing Changed (Black simplace x2) Ashly Wound Tissue: Macerated, Swollen, Painful/Tender Ashly Wound Swelling: Moderate Wound Bed Color: Black, Red, Yellow Wound Bed Constitution: Granulation Tissue (15%), Red/[place] - Non Granular Tissue (35%), Subcutaneous Fat (40%), Adhered Slough (10%) Wound Edges: Irregular Site Odor: Slight, Moderate, Foul Site Measurement - Head-to-Toe Length X Width X Depth (cm): 3x6.2x1 Skin Integrity Problem Comment: Patient was concerned about pain level with wound vac change. KVNG [place] gave patient both oral and IV pain meds before vac change. Adhesive remover spray used along edges of dressing, and dressing removed up to edge of wound bed. Topical lidocaine placed in wound prior to removing dressing. Patient did very well with distraction techniques for pain management. Wound bed measured and visual documentation provided to Amy Reid PAC. Periwound skin macerated along edge from 9 oclock to 3 oclock. Hydrocolloid dressing placed along macerated edge as base layer. Remaining periwound skin covered with drape. Small black simplace foam x2 pieces placed. Dressing draped, track pad placed, and wound vac set to suction at -125mmHg continous, with no leaks, alarms, or problems. Wound care will round again Thursday. Patient accepted at [facility].
[2018-05-17] MEDS ORDERED: WARFARIN SODIUM 5 MG TAB PO ONE (16:00)
[2018-05-18] MEDS: oxyCODONE IR 5 MG TAB PO PRN ×4 (02:25→23:24)
[2018-05-18 05:20] LABS: INR 1.53 (0.83-1.16); PROTIME(PATIENT) 18.5 SEC (12.0-15.0)
[2018-05-18] MEDS: INSULIN LISPRO 100 UNIT/1 ML VIAL HIGH SC SCH ×3 (09:34→18:36)
[2018-05-18] MEDS: ENOXAPARIN 80 MG/0.8 ML SYR SC SCH ×2 (09:34→20:48)
[2018-05-18] MEDS: INSULIN GLARGINE 100 UNITS/ML UNIT SC SCH ×2 (09:35→20:46)
--- NOTE | 2018-05-18 11:59 | HOSPPROG ---
Hospitalist Progress Note Assessment/Plan: 47-year-old with diabetes and factor 5 Leiden with recurrent DVTs and PEs is admitted with left foot infection, status post I and D x2. He recently left AMA but returned when he was unable to ambulate. # left foot infection in a diabetic, cultures grew out MRSA and Pseudomonas. * abx (Doxy) has been stopped s/p I & D. Had about a weeks of abx * Continue wound care # factor 5 Leiden: Currently on and anticoagulation due to recurrent DVTs and PEs -Lovenox bridge. Coumadin per pharmacy, INR 1.5 this AM # diabetes, blood sugars continue to be elevated * Hypoglycemic yesterday in the AM, decreased night Lantus to 25 units, Cont daily Lantus as is. Adjust as needed # s/p left foot debridement -post op care per surgery -has wound vac in place. He will not be able to take this if d/c to streets #Acute pain -pain mgmt Plan: CM is following. we discussed that he would benefit from SNF and pt agrees to 30 days of this if we are able to set up. CM currently working on this. Subjective: Patient reports continued pain in foot Objective: Vital Signs Temp Pulse Resp BP Pulse Ox 36.5 C 59 L 16 110/70 97 05/18/18 07:57 05/18/18 07:57 05/18/18 07:57 05/18/18 07:57 05/18/18 07:57 Laboratory Results 05/13/18 04:25 05/13/18 04:25 05/17/18 05/18/18 05/19/18 05:59 05:59 05:59 Intake Total 20 20 Balance 20 20 PT 18.5 SEC (12.0-15.0) H 05/18/18 04:32 INR 1.53 (0.83-1.16) H 05/18/18 04:32 - Physical Exam Constitutional: no apparent distress, unkempt Eyes: PERRL Ears, Nose, Mouth, Throat: moist mucous membranes Cardiovascular: regular rate and rhythym Respiratory: no respiratory distress, clear to auscultation Gastrointestinal: normoactive bowel sounds Skin: warm, other (woun vac in place ) Musculoskeletal: pain with ROM Neurologic: AAOx3 Psychiatric: interacting appropriately ICD10 Worksheet Patient Problems: Problems Problem Status Onset Cellulitis Acute Diabetic foot infection Acute Pseudomonas infection Acute Hyperglycemia Acute Leukocytosis Acute
--- NOTE | 2018-05-18 15:33 | ASMTCMCOM ---
CM Note CM Note Notes: Spoke with Vera from [facility] and patient has been [id number] approved. Vera will let Prabhjot at [facility] know. Hoping to get a date for d/c from [facility] when Prabhjot calls JAGDISH back. JAGDISH will follow. Date Signed: 05/18/2018 03:32 PM Electronically Signed By:Tesha Griffith LCSW
--- NOTE | 2018-05-18 15:40 | ASMTCMCOM ---
CM Note CM Note Notes: Prabhjot from [facility] called back and states patient's application is with their financial staff for approval since patient's Medicaid is pending and he does not have any income. Prabhjot will get back to us with their disposition. CM will follow. Date Signed: 05/18/2018 03:39 PM Electronically Signed By:Tesha Griffith LCSW
[2018-05-18] MEDS ORDERED: WARFARIN SODIUM 7.5 MG TAB PO ONE (16:00)
--- NOTE | 2018-05-18 16:58 | SOAPPROG ---
SOAP Progress Note Assessment/Plan: Assessment/Plan: 47yo M with poorly controlled type 2 diabetes, homeless. Multiple admissions for left heel diabetic foot ulcer. S/p excisional debridement. Continue wound vac MWF - consider application of amniofill under vac during tomorrow's change. Knee scooter Appreciate hospitalist management of comorbidities. [facility] S: less pain today, comfortable O: Laying in bed, comfortable, NAD Vac to suction. No periwound erythema Objective: Vital Signs Temp Pulse Resp BP Pulse Ox 36.5 C 59 L 16 110/70 97 05/18/18 07:57 05/18/18 07:57 05/18/18 07:57 05/18/18 07:57 05/18/18 07:57 Laboratory Results 05/13/18 04:25 05/13/18 04:25 05/17/18 05/18/18 05/19/18 05:59 05:59 05:59 Intake Total 20 20 Balance 20 20 PT 18.5 SEC (12.0-15.0) H 05/18/18 04:32 INR 1.53 (0.83-1.16) H 05/18/18 04:32 ICD10 Worksheet Patient Problems: Problems Problem Status Onset Cellulitis Acute Diabetic foot infection Acute Pseudomonas infection Acute Hyperglycemia Acute Leukocytosis Acute
[2018-05-19 06:02] LABS: INR 1.84 (0.83-1.16); PROTIME(PATIENT) 21.3 SEC (12.0-15.0)
[2018-05-19] MEDS: INSULIN LISPRO 100 UNIT/1 ML VIAL HIGH SC SCH ×3 (08:46→18:16)
[2018-05-19] MEDS: INSULIN GLARGINE 100 UNITS/ML UNIT SC SCH ×2 (08:47→22:00)
[2018-05-19] MEDS: ENOXAPARIN 80 MG/0.8 ML SYR SC SCH ×2 (08:48→22:02)
[2018-05-19] MEDS: oxyCODONE IR 5 MG TAB PO PRN ×3 (10:32→22:08)
--- NOTE | 2018-05-19 11:09 | SOAPPROG ---
SOAP Progress Note Assessment/Plan: Assessment/Plan: 47yo M with poorly controlled type 2 diabetes, homeless. Multiple admissions for left heel diabetic foot ulcer. S/p excisional debridement. Continue wound vac MWF - wound not quite ready for amniofill. consider thursday Knee scooter Appreciate hospitalist management of comorbidities. Tar Distributor Operator to fit for orthotic [facility] S: Pain with wound VAC change, although otherwise doing much better. O: Laying in bed, discomfort with manipulation of the wound No increased work of breathing No peripheral edema No bishnu wound erythema. Tenderness to palpation distal of the wound. Base of the wound with approximately 50% healthy granulation tissue. There is soft slough in the central aspect of the wound, which is very tender to manipulation. I was unable to debride this at bedside. There is an area of undermining towards the Achilles approximately 0.6 cm. There is no palpable bone in the base the wound. VAC reapplied by Maggie NUNEZ 05/19/18 11:07 Objective: Vital Signs Temp Pulse Resp BP Pulse Ox 36.9 C 66 16 109/66 97 05/18/18 23:22 05/19/18 08:00 05/19/18 08:00 05/19/18 08:00 05/19/18 08:00 Laboratory Results 05/13/18 04:25 05/13/18 04:25 05/18/18 05/19/18 05/20/18 05:59 05:59 05:59 Intake Total 20 Balance 20 PT 21.3 SEC (12.0-15.0) H 05/19/18 05:05 INR 1.84 (0.83-1.16) H 05/19/18 05:05 ICD10 Worksheet Patient Problems: Problems Problem Status Onset Cellulitis Acute Diabetic foot infection Acute Pseudomonas infection Acute Hyperglycemia Acute Leukocytosis Acute
--- NOTE | 2018-05-19 12:02 | WOCRNPDOC ---
WOCRN Advanced Assessment Note - Skin Integrity Problem, Advanced Assess Left Heel Dressing Type: Black Vac Foam (x1), Wound Vac Dressing Description: Clean/Dry, Intact Exudate Amount: Scant Exudate Characteristic(s): Serosanguinous Integumentary Issue Intervention: Dressing Changed Ashly Wound Tissue: Macerated (mild) Wound Bed Constitution: Granulation Tissue (40%), Adhered Slough (60%) Wound Edges: Not Attached Skin Integrity Problem Comment: Large area of heel callous along inferior wound margin came off during vac drape removal. Ashly wound skin is moderately macerated out to 2 cm. Patient recieved large amount of IV morphine as well as 10 mg of PO oxy IR and screamed and wrenched his leg around the entire dressing change. Per PADMA Reyes bone is no longer palpable in wound bed. Small area of undermining in midline, inferior wound approx 0.5 cm. Since there is still necrosis in wound bed, amniofill (placental graft) should not be placed. Wound bed should be clean and healthy prior to it's placement. Wound margins bordered with [employer] hydrocolloid. Vac bridge dressing used. Seal was difficult to achieve, but after reinforcing with drape vac is working properly. Angela CALDERON in room for care. Next vac change due on Thursday.
--- NOTE | 2018-05-19 12:38 | HOSPPROG ---
Hospitalist Progress Note Assessment/Plan: 47-year-old with diabetes and factor 5 Leiden with recurrent DVTs and PEs is admitted with left foot infection, status post I and D x2. He recently left AMA but returned when he was unable to ambulate. # left foot infection in a diabetic, cultures grew out MRSA and Pseudomonas. * abx (Doxy) has been stopped s/p I & D. Had about a weeks of abx * Continue wound care # factor 5 Leiden: Currently on and anticoagulation due to recurrent DVTs and PEs -Lovenox bridge. Coumadin per pharmacy, INR 1.5 this AM # diabetes, blood sugars continue to be elevated * Hypoglycemic on 05/17 in the AM, decreased night Lantus to 25 units, Cont daily Lantus as is. Adjust as needed # s/p left foot debridement -post op care per surgery -has wound vac in place. He will not be able to take this if d/c to streets #Acute pain -pain mgmt Plan: CM is following. we discussed that he would benefit from SNF and pt agrees to 30 days of this if we are able to set up. CM currently working on this. Subjective: Patient reports 4-5/10 pain in foot Objective: Vital Signs Temp Pulse Resp BP Pulse Ox 36.9 C 66 16 109/66 97 05/18/18 23:22 05/19/18 08:00 05/19/18 08:00 05/19/18 08:00 05/19/18 08:00 Laboratory Results 05/13/18 04:25 05/13/18 04:25 05/18/18 05/19/18 05/20/18 05:59 05:59 05:59 Intake Total 20 Balance 20 PT 21.3 SEC (12.0-15.0) H 05/19/18 05:05 INR 1.84 (0.83-1.16) H 05/19/18 05:05 - Physical Exam Constitutional: no apparent distress Eyes: PERRL Ears, Nose, Mouth, Throat: moist mucous membranes Cardiovascular: regular rate and rhythym Respiratory: no respiratory distress, clear to auscultation Gastrointestinal: soft, non-tender abdomen Genitourinary: no bladder tenderness Skin: warm, other (wound vac in place) Musculoskeletal: full muscle strength Neurologic: AAOx3 Psychiatric: interacting appropriately ICD10 Worksheet Patient Problems: Problems Problem Status Onset Cellulitis Acute Diabetic foot infection Acute Pseudomonas infection Acute Hyperglycemia Acute Leukocytosis Acute
--- NOTE | 2018-05-19 13:30 | ASMTCMCOM ---
JAGDISH Note CM Note Notes: Spoke with Prabhjot at [facility] who states patient's application is still with their financial department but he will call back as soon as he gets an answer. Patient is still experiencing severe pain with all of his wound vac changes. It is estimated patient will need the wound vac at least 2 more weeks. There may be a one time treatment they can do that will last for 1 week if patient is still here on Thursday. His wound is not quite at a stage where they can administer it now. ( this would eliminate 2 changes of wound vac which cause a great deal of pain for the patient) Awaiting [facility]'s response. CM will follow. Date Signed: 05/19/2018 01:09 PM Electronically Signed By:Tesha Griffith LCSW
[2018-05-19] MEDS ORDERED: WARFARIN SODIUM 7.5 MG TAB PO ONE (16:00)
[2018-05-20 05:48] LABS: INR 1.99 (0.83-1.16); PROTIME(PATIENT) 22.7 SEC (12.0-15.0)
[2018-05-20] MEDS: INSULIN GLARGINE 100 UNITS/ML UNIT SC SCH ×2 (08:52→20:19)
[2018-05-20] MEDS: ENOXAPARIN 80 MG/0.8 ML SYR SC SCH ×2 (08:52→20:19)
[2018-05-20] MEDS: INSULIN LISPRO 100 UNIT/1 ML VIAL HIGH SC SCH ×3 (08:52→17:40)
[2018-05-20] MEDS: oxyCODONE IR 5 MG TAB PO PRN ×2 (08:53→13:16)
--- NOTE | 2018-05-20 11:36 | HOSPPROG ---
Hospitalist Progress Note Assessment/Plan: 47-year-old with diabetes and factor 5 Leiden with recurrent DVTs and PEs is admitted with left foot infection, status post I and D x2. He recently left AMA but returned when he was unable to ambulate. # left foot infection in a diabetic, cultures grew out MRSA and Pseudomonas. * abx (Doxy) has been stopped s/p I & D. Had about a weeks of abx * Continue wound care # factor 5 Leiden: Currently on and anticoagulation due to recurrent DVTs and PEs -Lovenox bridge. Coumadin per pharmacy, INR 1.99 this AM, likey d/c Lovenox tomorrow when >2 # diabetes, blood sugars continue to be elevated * Hypoglycemic on 05/17 in the AM, decreased night Lantus to 25 units, Cont daily Lantus as is. Adjust as needed # s/p left foot debridement -post op care per surgery -has wound vac in place. He will not be able to take this if d/c to streets #Acute pain -pain mgmt Plan: CM is following. we discussed that he would benefit from SNF and pt agrees to 30 days of this if we are able to set up. CM currently working on this. Subjective: Patient reports pain in lower extremity Objective: Vital Signs Temp Pulse Resp BP Pulse Ox 36.6 C 63 16 115/70 94 05/20/18 10:52 05/20/18 10:52 05/20/18 10:52 05/20/18 10:52 05/20/18 10:52 Laboratory Results 05/13/18 04:25 05/13/18 04:25 PT 22.7 SEC (12.0-15.0) H 05/20/18 04:30 INR 1.99 (0.83-1.16) H 05/20/18 04:30 - Physical Exam Constitutional: no apparent distress Eyes: PERRL Ears, Nose, Mouth, Throat: moist mucous membranes Cardiovascular: regular rate and rhythym Respiratory: no respiratory distress, clear to auscultation Gastrointestinal: soft, non-tender abdomen Genitourinary: no bladder tenderness Skin: warm, other (wound vac in place) Musculoskeletal: pain with ROM Neurologic: AAOx3 Psychiatric: interacting appropriately ICD10 Worksheet Patient Problems: Problems Problem Status Onset Cellulitis Acute Diabetic foot infection Acute Pseudomonas infection Acute Hyperglycemia Acute Leukocytosis Acute
--- NOTE | 2018-05-20 14:29 | ASMTCMCOM ---
CM Note CM Note Notes: Pt has been denied long-term Medicaid, both to the acuity of his medical issue rather then it being qualifying for a disability and due to his multiple AMAs. His discharge needs will depend to a degree on his length of need for a wound vac. Dr Prabhakar stated that this information should be available tomorrow when his wound is rechecked. At that time it may be appropriate to speak to pt about [facility]. If [facility] not an [facility] and the wound vac is to be used for a brief amount of time, keeping him in the hospital while he's being treated may be the best option. CM to follow. D/C Plan: TBD Date Signed: 05/20/2018 02:29 PM Electronically Signed By:Nancy Enriquez
[2018-05-20] MEDS ORDERED: WARFARIN SODIUM 5 MG TAB PO ONE (16:00)
[2018-05-20] MEDS: oxyCODONE IR 15 MG TAB PO PRN ×2 (17:26→23:36)
[2018-05-21 05:30] LABS: INR 1.68 (0.83-1.16); PROTIME(PATIENT) 19.9 SEC (12.0-15.0)
[2018-05-21] MEDS: INSULIN LISPRO 100 UNIT/1 ML VIAL HIGH SC SCH ×2 (08:01→11:45)
[2018-05-21] MEDS: oxyCODONE IR 15 MG TAB PO PRN (08:09)
[2018-05-21] MEDS: ENOXAPARIN 80 MG/0.8 ML SYR SC SCH (08:39)
[2018-05-21] MEDS: INSULIN GLARGINE 100 UNITS/ML UNIT SC SCH (08:41)
[2018-05-21] MEDS ORDERED: INSULIN GLARGINE 100 UNITS/ML UNIT SC SCH ×2 (10:01)
[2018-05-21] MEDS: LIDOCAINE HCL 4% TOPICAL SOLN 50ML TP PRN (10:11)
--- NOTE | 2018-05-21 11:32 | WOCRNPDOC ---
REYNA Advanced Assessment Note - Skin Integrity Problem, Advanced Assess Left Heel Dressing Type: Wound Vac Dressing Description: Clean/Dry, Intact Exudate Amount: Scant Exudate Characteristic(s): Serous Integumentary Issue Intervention: Dressing Changed, Dressing Initialed & Dated Ashly Wound Tissue: Blanching, Macerated, Calloused Ashly Wound Swelling: None Wound Bed Color: Red, Yellow Wound Bed Constitution: Granulation Tissue (50%), Adhered Slough (50%) Wound Edges: Attached Site Odor: None Site Measurement - Head-to-Toe Length X Width X Depth (cm): 2.5x6x1 Skin Integrity Problem Comment: Patient premedicated with 4mg IV Morphine by KVNG Jorgensen prior to dressing removal. Wound vac dressing removed with adhesive remover. Wound cleansed with NS and gauze, periwound maceration has improved. Dr. Mitchell and Amy Reid PA in room to assess wound. Wound vac discontinued at this time. Dr. Mitchell placed Iodofoam Iodophor foam dressing in wound bed. Covered with non-bordered mepilex foam and a Sofsorb absorbant pad and secured with Kerlix and medipore tape. 10ml of 4% topical lidocaine used for vac dressing removal and after wound cleaning. Patient tolerated dressing change well. Discussed with Dr. Mitchell and Amy patient's need for a prescription for a scooter. Remaining Iodofoam dressing placed in a ziplock bag in patient's room to ensure that it does not dry out before next dressing change. Joslyn CALDERON updated. Wound care will round again next week.
--- NOTE | 2018-05-21 13:59 | HOSPPROG ---
Hospitalist Progress Note Assessment/Plan: 47-year-old with diabetes and factor 5 Leiden with recurrent DVTs and PEs is admitted with left foot infection, status post I&D x2. He recently left AMA but returned when he was unable to ambulate. #Diabetic left foot infection/abscess: Cx from 05/05 grew MRSA and PsA. MRI from without OM. - Has completed course of antibiotics - Wound vac removed today, continue routine wound care - Pain control with oxycodone - CM working on getting him a scooter, continue PT/OT #Poorly controlled T2DM with symptomatic hypoglycemia: BG 80s this AM when shaky. A1c 15%. - Decrease glargine from 25 to 15 BID - Continue SSI - Goal BG 140-180 #H/o DVT/PE: With reported factor 5 leiden. INR still subtherapeutic. He has IVF filter. - LMWH bridge to warfarin Diet: carb controlled Dispo: Remain inpatient for management of above. His discharge is challenging and unsafe at present given his homelessness and ongoing wound care needs, titration of insulin with hypoglycemic episodes. Therapy services had recommended SNF but he was declined from several as he has left AMA twice in past month. Subjective: Overall doing better but still with significant pain in right foot when manipulated. He isn't walking around very much. No fevers. Objective: Vital Signs Temp Pulse Resp BP Pulse Ox 36.6 C 65 16 105/62 94 05/21/18 07:14 05/21/18 07:14 05/21/18 07:14 05/21/18 07:14 05/21/18 07:14 Laboratory Results 05/13/18 04:25 05/13/18 04:25 PT 19.9 SEC (12.0-15.0) H 05/21/18 04:31 INR 1.68 (0.83-1.16) H 05/21/18 04:31 - Physical Exam Constitutional: no apparent distress, appears nourished, not in pain Eyes: PERRL, anicteric sclera, EOMI Ears, Nose, Mouth, Throat: moist mucous membranes, hearing normal, ears appear normal, no oral mucosal ulcers Cardiovascular: regular rate and rhythym, no murmur, rub, or gallop Respiratory: no respiratory distress, no rales or rhonchi, clear to auscultation Gastrointestinal: normoactive bowel sounds, soft, non-tender abdomen, no palpable masses Skin: other (wound vac in place over right heel) Neurologic: AAOx3, sensation intact bilaterally Psychiatric: interacting appropriately, not anxious, not encephalopathic, thought process linear ICD10 Worksheet Patient Problems: Problems Problem Status Onset Cellulitis Acute Diabetic foot infection Acute Pseudomonas infection Acute Hyperglycemia Acute Leukocytosis Acute
[2018-05-21 15:16] VITALS: BP 101/59
--- NOTE | 2018-05-21 15:55 | ASMTCMCOM ---
CM Note CM Note Notes: Spoke with pt re; dc poc. Notified pt he was declined by SNF, CM inquired if pt was interested in [facility] in [place] that was a chcf but could accomodate his medical needs. Pt declined, he also declined the [facility]. Pt became more upset and stated he was going to leave since thats the only reason he was staying. CM encouraged pt to stay, d/t his medical needs but pt stated that we had failed him and he was leaving. CM noitified charge master coordinator and MD. IV was taken out and pt left. DC Plan: Independent Date Signed: 05/21/2018 03:55 PM Electronically Signed By:Sandra Porras RN
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
[2018-05-21] MEDS ORDERED: WARFARIN SODIUM 7.5 MG TAB PO ONE (16:00)
--- NOTE | 2018-05-21 16:01 | ASMTLACE ---
LACE Length of stay for Answers: 7-13 days current admission Acuity / Level of Answers: Yes Care: Did the patient have an inpatient admission? Comorbidities - select Answers: Diabetes (uncontrolled or all that apply controlled) Other Notes: Factor 5 Leiden, PE/DVT s # of Emergency department Answers: 5-8 visits in the last 6 months Social determinants Answers: History of substance abuse (ETOH, street drugs, prescription drugs, etc.) Homelessness (street, chcf) Lack of community resources and/or lack of social support (no pcp, lives alone, transportation, jessica d) Score: 24 Date Signed: 05/21/2018 04:00 PM Electronically Signed By:Sandra Porras RN
--- NOTE | 2018-05-21 17:49 | PDDCSUM ---
Discharge Summary Discharge Summary: Date of Admission: 05/08/2018 Date of Discharge: 05/21/2018 Disposition: Patient left AMA. He is homeless. Consultants: surgery, wound care, infectious disease Procedures: debridement of left heel wound with wound vac placement Discharge Diagnoses: 1. AMA discharge 2. Diabetic left foot infection/abscess 3. Poorly controlled T2DM with symptomatic hypoglycemia 4. H/o DVT/PE, factor V Leiden 5. Homelessness Brief Hospital Course by Problem: 1. AMA: This is his 3rd AMA discharge in last month for same problem (left foot infection). He became upset when he was told that he wouldn't be going to SNF ( he had been declined due to him leaving AMA twice already) and rather promptly left before I could re-visit with him. The RN was able to remove his IVs and went over risks of leaving. I did not feel that he was safe for discharge given his ongoing need for wound care, insulin titration, and PT/OT in the setting of his homelessness. He did not receive any prescriptions for outpatient medications, including insulin or anticoagulation, prior to leaving. 2. Diabetic left foot infection: S/p I&D this admission, which was his 2nd debridement in last month. Completed course of antibiotics. Wound vac removed on day he left. Case management had been working on getting him a scooter. 3. Poorly controlled T2DM: A1c 15.6% recently. Had labile BG with symptomatic hypoglycemia. We were actively titrating his insulin regimen on day of AMA discharge. He does not have any insulin. High risk for complications of hyperglycemia. 4. H/o DVT/PE: Reportedly has factor V Leiden mutation. Has IVF filter. Had been on warfarin with LMWH bride due to subtherapeutic INR but left without prescriptions for any of these. High risk for recurrently venous thrombosis. 5. Homelessness Medications: Please refer to EMR. Patient declined to be prescribed any medications, namely insulin or warfarin/LMWH, at time of AMA discharge. Follow Up Plan: 1. Unclear. Patient is homeless and doesn't have PCP to help coordinate care. I suspect he may come back to this or another ED in the near future. 2. He is at high risk for numerous medical problems including hyperglycemia, DKA , venous thrombosis, sepsis/worsening infection. Physical Exam: Vitals reviewed, he has been afebrile with normal heart rate and BP. Alert and oriented. No murmur on cardiac exam. Lungs clear. Abdomen soft and nt. No lower extremity edema. Left heel wound without surrounding erythema, wound vac now removed.
== END 2018-05-21 15:51 | disposition left against medical advice (07) | DRG 364 ==
LOC: F3E 05-08 00:15 → OBSVTOIN 05-08 15:50
PROVIDERS: ADMIT Student in an Organized Health Care Education/Training Program; ATTEND Student in an Organized Health Care Education/Training Program
PROC: 0JDR0ZZ Extraction of Left Foot Subcutaneous Tissue and Fascia, Open Approach (ICD-10-PCS; principal; 2018-05-12 11:15)
DX: E11.621 Type 2 diabetes mellitus with foot ulcer (principal); L97.429 Non-pressure chronic ulcer of left heel and midfoot with unspecified severity; D68.2 Hereditary deficiency of other clotting factors; L02.612 Cutaneous abscess of left foot; E11.649 Type 2 diabetes mellitus with hypoglycemia without coma; T38.3X6A Underdosing of insulin and oral hypoglycemic [antidiabetic] drugs, initial encounter; B96.5 Pseudomonas (aeruginosa) (mallei) (pseudomallei) as the cause of diseases classified elsewhere; B95.62 Methicillin resistant Staphylococcus aureus infection as the cause of diseases classified elsewhere; Z59.0 Homelessness; Z72.0 Tobacco use; Z86.718 Personal history of other venous thrombosis and embolism; Z86.711 Personal history of pulmonary embolism
CPT/HCPCS: 96374; 97116-GP; 97161-GP; G0378; J1170; J1650; J1815; J2270; J2405; J2704; J3010; J3370

== ENCOUNTER 2018-05-22 20:50 | Inpatient (IN) | payer MEDICAID ==
--- NOTE | 2018-05-22 21:22 | EDPHY ---
H & P Time Seen by Provider: 05/22/18 21:03 HPI/ROS: CHIEF COMPLAINT: Left foot pain HISTORY OF PRESENT ILLNESS: Patient is a 47-year-old male here with complaint of left foot pain. He left AMA from this hospital yesterday where he had been admitted for left foot diabetic infection and developed an abscess. He is receiving wound care and titrating his Coumadin dosing but left before completion of his care. He is requesting repeat admission to complete his care. He is taking no antibiotics, Coumadin or insulin for his diabetes. He is homeless. REVIEW OF SYSTEMS: Constitutional: No fever, no chills. Eyes: No discharge. ENT: No sore throat. Cardiovascular: No chest pain, no palpitations. Respiratory: No cough, no shortness of breath. Gastrointestinal: No abdominal pain, no vomiting. Genitourinary: No hematuria. Musculoskeletal: No back pain. Skin: No rashes. Neurological: No headache. Smoking Status: Heavy smoker Physical Exam: General Appearance: Alert and no distress. Eyes: Pupils equal and round no injection. Respiratory: Chest is nontender, lungs are clear to auscultation. Cardiac: regular rate and rhythm. Gastrointestinal: Abdomen is soft and nontender, no masses, bowel sounds normal. Musculoskeletal: Neck is supple and nontender. Extremities have full range of motion and are nontender. Skin: Examination of the left foot reveals a Constitutional: Initial Vital Signs Temperature (C) 36.9 C 05/22/18 20:54 Heart Rate 114 H 05/22/18 20:54 Respiratory Rate 16 05/22/18 20:54 Blood Pressure 137/92 H 05/22/18 20:54 O2 Sat (%) 95 05/22/18 20:54 O2 Delivery Mode Room Air Allergies/Adverse Reactions: No Known Allergies Allergy (Verified 05/02/18 23:25) Home Medications: Medication Instructions Recorded NK [No Known Home Meds] 05/03/18 Medical Decision Making - Data Points Laboratory Results: Laboratory Results 05/22/18 21:30 05/22/18 21:30 05/22/18 05/22/18 05/22/18 21:30 21:30 21:30 WBC 7.79 10^3/uL 10^3/uL (3.80-9.50) RBC 4.23 10^6/uL L 10^6/uL (4.40-6.38) Hgb 13.1 g/dL L g/dL (13.7-17.5) Hct 38.8 % L % (40.0-51.0) MCV 91.7 fL fL (81.5-99.8) MCH 31.0 pg pg (27.9-34.1) MCHC 33.8 g/dL g/dL (32.4-36.7) RDW 12.8 % % (11.5-15.2) Plt Count 275 10^3/uL 10^3/uL (150-400) MPV 9.4 fL fL (8.7-11.7) Neut % (Auto) 50.1 % % (39.3-74.2) Lymph % (Auto) 39.2 % % (15.0-45.0) Lea % (Auto) 8.7 % % (4.5-13.0) Eos % (Auto) 1.3 % % (0.6-7.6) Baso % (Auto) 0.6 % % (0.3-1.7) Nucleat RBC Rel Count 0.0 % % (0.0-0.2) Absolute Neuts (auto) 3.90 10^3/uL 10^3/uL (1.70-6.50) Absolute Lymphs (auto) 3.05 10^3/uL H 10^3/uL (1.00-3.00) Absolute Monos (auto) 0.68 10^3/uL 10^3/uL (0.30-0.80) Absolute Eos (auto) 0.10 10^3/uL 10^3/uL (0.03-0.40) Absolute Basos (auto) 0.05 10^3/uL 10^3/uL (0.02-0.10) Absolute Nucleated RBC 0.00 10^3/uL 10^3/uL (0-0.01) Immature Gran % 0.1 % % (0.0-1.1) Immature Gran # 0.01 10^3/uL 10^3/uL (0.00-0.10) ESR 9 MM/HR MM/HR (0-15) PT 16.0 SEC H SEC (12.0-15.0) INR 1.26 H (0.83-1.16) Sodium 137 mEq/L mEq/L (135-145) Potassium 5.0 mEq/L mEq/L (3.3-5.0) Chloride 98 mEq/L mEq/L (97-110) Carbon Dioxide 30 mEq/l mEq/l (22-31) Anion Gap 9 mEq/L mEq/L (8-16) BUN 23 mg/dL mg/dL (7-23) Creatinine 0.8 mg/dL mg/dL (0.7-1.3) Estimated GFR > 60 Glucose 351 mg/dL H mg/dL (70-100) Calcium 9.8 mg/dL mg/dL (8.5-10.4) C-Reactive Protein < 5.0 mg/L mg/L (<10.0) Medications Given: Acetaminophen (Tylenol) 650 mg PO Q4HRS PRN PRN Reason: Pain, Mild/Fever, Can Take PO Stop: 11/18/18 22:19 Last Admin: 05/23/18 00:15 Dose: 650 mg Insulin Glargine (Lantus Syringe) 15 units SC HS MISHA Stop: 11/18/18 22:29 Last Admin: 05/22/18 23:26 Dose: 15 units Oxycodone HCl (Oxycodone Ir) 5 - 10 mg PO Q4HRS PRN PRN Reason: Pain, Severe Able to Take PO Stop: 18 22:26 Last Admin: 05/23/18 00:15 Dose: 5 mg Departure - Departure Disposition: [facility] Acute Condition: Fair
[2018-05-22 21:45] LABS: PLATELET COUNT 275 10^3/uL (150-400)
[2018-05-22 22:19] LABS: INR 1.26 (0.83-1.16)
[2018-05-22] MEDS ORDERED: ONDANSETRON 4 MG/2 ML VIAL IVP PRN (22:20)
[2018-05-22] MEDS ORDERED: ONDANSETRON DISINTEGRATING 4 MG TAB PO PRN (22:20)
[2018-05-22] MEDS ORDERED: D50W 25 GM/50 ML SYR IVP PRN (22:22)
--- NOTE | 2018-05-22 23:09 | PDGENHP ---
History and Physical - Chief Complaint L foot wound - History of Present Illness 47 yo M w/ IDDM and FVL presents again for management of L foot wound. He has left AMA three times in the past month. Most recently was yesterday when he left after being upset that he would not receive 30 days of SNF placement. He returns today with ongoing pain in his L foot and inability to ambulate. He denies fevers and chills. He has not had insulin or warfarin in the last day as he left AMA abruptly without prescriptions. Case discussed with ED PADMA Christina. Records reviewed in EMR. History Information - Allergies/Home Medication List Allergies/Adverse Reactions: No Known Allergies Allergy (Verified 05/02/18 23:25) Home Medications: NK [No Known Home Meds] 05/03/18 [Last Taken Unknown] I have personally reviewed and updated: family history, medical history - Past Medical History diabetes type 2 Additional medical history: FVL - Surgical History Additional surgical history: IVC filter placed in 2005 - Family History Additional family history: FVL - Social History Smoking Status: Heavy smoker Review of Systems Review of Systems: ROS: 10pt was reviewed & negative except for what was stated in HPI & below Physical Exam Physical Exam: Temp Pulse Resp BP Pulse Ox 36.9 C 114 H 16 137/92 H 95 05/22/18 20:54 05/22/18 20:54 05/22/18 20:54 05/22/18 20:54 05/22/18 20:54 Constitutional: uncomfortable, unkempt Eyes: PERRL, EOMI Ears, Nose, Mouth, Throat: moist mucous membranes, no oral mucosal ulcers Cardiovascular: regular rate and rhythym, no murmur, rub, or gallop Respiratory: no respiratory distress, clear to auscultation Gastrointestinal: normoactive bowel sounds, soft, non-tender abdomen Skin: warm, other (L heel wound with sponge in place, minimal surrounding erythema) Musculoskeletal: full muscle strength, no muscle tenderness Neurologic: AAOx3, CN II-XII Intact Psychiatric: interacting appropriately, not anxious Lab Data & Imaging Review 05/22/18 21:30 05/22/18 21:30 WBC 7.79 10^3/uL (3.80-9.50) 05/22/18 21:30 RBC 4.23 10^6/uL (4.40-6.38) L 05/22/18 21: Hgb 13.1 g/dL (13.7-17.5) L 05/22/18 21: Hct 38.8 % (40.0-51.0) L 05/22/18 21: MCV 91.7 fL (81.5-99.8) 05/22/18 21: MCH 31.0 pg (27.9-34.1) 05/22/18: MCHC 33.8 g/dL (32.4-36.7) 05/22/18: RDW 12.8 % (11.5-15.2) 05/22/18: Plt Count 275 10^3/uL (150-400) 05/22/18: MPV 9.4 fL (8.7-11.7) 05/22/18: Neut % (Auto) 50.1 % (39.3-74.2) 05/22/18: Lymph % (Auto) 39.2 % (15.0-45.0) 05/22/18: [place] % (Auto) 8.7 % (4.5-13.0) 05/22/18: Eos % (Auto) 1.3 % (0.6-7.6) 05/22/18: Baso % (Auto) 0.6 % (0.3-1.7) 05/22/18: Nucleat RBC Rel Count 0.0 % (0.0-0.2) 05/22/18: Absolute Neuts (auto) 3.90 10^3/uL (1.70-6.50) 05/22/18: Absolute Lymphs (auto) 3.05 10^3/uL (1.00-3.00) H 05/22/18: Absolute Monos (auto) 0.68 10^3/uL (0.30-0.80) 05/22/18: Absolute Eos (auto) 0.10 10^3/uL (0.03-0.40) 05/22/18: Absolute Basos (auto) 0.05 10^3/uL (0.02-0.10) 05/22/18 21:30 Absolute Nucleated RBC 0.00 10^3/uL (0-0.01) 05/22/18 21:30 Immature Gran % 0.1 % (0.0-1.1) 05/22/18 21:30 Immature Gran # 0.01 10^3/uL (0.00-0.10) 05/22/18 21:30 ESR 9 MM/HR (0-15) 05/22/18 21:30 PT 16.0 SEC (12.0-15.0) H 05/22/18 21:30 INR 1.26 (0.83-1.16) H 05/22/18 21:30 Sodium 137 mEq/L (135-145) 05/22/18 21:30 Potassium 5.0 mEq/L (3.3-5.0) 05/22/18 21:30 Chloride 98 mEq/L (97-110) 05/22/18: Carbon Dioxide 30 mEq/l (22-31) 05/22/18 21:30 Anion Gap 9 mEq/L (8-16) 05/22/18 21:30 BUN 23 mg/dL (7-23) 05/22/18 21:30 Creatinine 0.8 mg/dL (0.7-1.3) 05/22/18 21:30 Estimated GFR > 60 05/22/18 21:30 Glucose 351 mg/dL (70-100) H 05/22/18 21:30 Calcium 9.8 mg/dL (8.5-10.4) 05/22/18 21:30 C-Reactive Protein < 5.0 mg/L (<10.0) 05/22/18 21:30 Assessment & Plan Assessment: 47 yo M w/ IDDM and FVL presents for ongoing management of L diabetic foot infection. Plan: 1. L diabetic foot infection - S/p I&D x2 and wound vac over the last month. Currently wound appears relatively well with sponge in place. He continues to have significant pain and is unable to ambulate. - Wound care consult placed 2. IDDM - Recent A1c 15%; will continue most recent insulin regimen. - Insulin glargine 15 u BID + standard SSI - BG ACHS; D50 IV PRN for hypoglycemia 3. Hx DVT/PE - W/ hx of FVL and IVC filter in place from 2005. - Continue warfarin with Lovenox bridge - Monitor daily INR Diet - Regular Code - Full Ppx - warfarin, Lovenox Dispo - Admit under observation status for now
[2018-05-22] MEDS: INSULIN GLARGINE 100 UNITS/ML UNIT SC SCH (23:26)
[2018-05-23] MEDS: ACETAMINOPHEN 325 MG TAB PO PRN (00:15)
[2018-05-23] MEDS: oxyCODONE IR 5 MG TAB PO PRN ×4 (00:15→22:20)
[2018-05-23 04:42] LABS: PLATELET COUNT 255 10^3/uL (150-400)
[2018-05-23 04:50] LABS: INR 1.19 (0.83-1.16); PROTIME(PATIENT) 15.3 SEC (12.0-15.0)
[2018-05-23] MEDS: INSULIN LISPRO 100 UNIT/ML SC SCH ×3 (08:01→18:14)
[2018-05-23] MEDS: ENOXAPARIN 80 MG/0.8 ML SYR SC SCH ×2 (08:25→20:48)
[2018-05-23] MEDS: INSULIN GLARGINE 100 UNITS/ML UNIT SC SCH ×2 (08:26→20:49)
--- NOTE | 2018-05-23 09:44 | HOSPPROG ---
Hospitalist Progress Note Assessment/Plan: 47 yo M w/ IDDM and FVL presents for ongoing management of L diabetic foot infection. Of note, he's had #L diabetic foot infection: S/p I&D x2, antibiotics, and wound vac over the last month. Currently wound appears relatively well with sponge in place. He continues to have significant pain and is unable to ambulate. - Wound care - PT/OT, previously was working on getting scooter #IDDM: Recent A1c 15%. - Insulin glargine 15 u BID + standard SSI #Hx DVT/PE: W/ hx of FVL and IVC filter in place from 2005. - Continue warfarin with Lovenox bridge - Monitor daily INR #Homeless: Makes discharge challenging. - Will discuss options with CM. Respite bed may be reasonable for him. He has been declined from SNFs for leaving AMA. Diet - Regular Code - Full Ppx - warfarin, Lovenox Dispo - Will keep under observation status for now in case safe discharge plan is made; however, he may need to switch to inpatient as he is unsafe to discharge back to street. Subjective: Came back because he couldn't walk and was fearful for something happening to his 19yo son. Having left heel, knee and hip pain. Objective: Vital Signs Temp Pulse Resp BP Pulse Ox 36.6 C 68 16 112/70 96 05/23/18 07:57 05/23/18 07:57 05/23/18 07:57 05/23/18 07:57 05/23/18 07:57 Laboratory Results 05/23/18 04:14 05/23/18 04:14 05/22/18 05/23/18 05/24/18 05:59 05:59 05:59 Intake Total 50 Balance 50 PT 15.3 SEC (12.0-15.0) H 05/23/18 04:14 INR 1.19 (0.83-1.16) H 05/23/18 04:14 - Physical Exam Constitutional: no apparent distress, appears nourished, not in pain Eyes: PERRL, anicteric sclera, EOMI Ears, Nose, Mouth, Throat: moist mucous membranes, hearing normal, ears appear normal, no oral mucosal ulcers Cardiovascular: regular rate and rhythym, no murmur, rub, or gallop Respiratory: no respiratory distress, no rales or rhonchi, clear to auscultation Gastrointestinal: normoactive bowel sounds, soft, non-tender abdomen, no palpable masses Skin: other (left heel wrapped) Musculoskeletal: full muscle strength, no muscle tenderness, normal joint ROM, No joint effusion Neurologic: AAOx3, sensation intact bilaterally Psychiatric: interacting appropriately, not anxious, not encephalopathic, thought process linear ICD10 Worksheet Patient Problems: Problems Problem Status Onset Cellulitis Acute Diabetic foot infection Acute Hyperglycemia Acute Leukocytosis Acute Pseudomonas infection Acute
--- NOTE | 2018-05-23 13:49 | PDMN ---
Medical Necessity Medical necessity: MCG 47 yo w/ left diabetic foot wound/infection w/ sig pain, s/p I&Dx2, antibx and wound vac over last month, unable to ambulate on that foot now, has left AMA x3 in last month, homeless, unsafe to d/c back to street at this time requiring another MN, wound consults ordered. 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 Switch to IP status 05/23/18 @ 9314
[2018-05-23] MEDS ORDERED: WARFARIN SODIUM 7.5 MG TAB PO ONE (16:00)
--- NOTE | 2018-05-23 17:37 | ASMTCMCOM ---
CM Note CM Note Notes: 47yr old male admitted for L DM foot infection, Cellulitis, Hyperglycemia. He has a Hx of DVT, PE, DM-2, Homeless. Patient has left [facility] AMA x 3 in the past. He is here with his 19yr old son. Patient not interested in going to respite in [place] and has been opposed to going to LTC for the require Medicaid 30 days. CM to contact [facility] on Thursday to see if they have possible respite beds and RN to assist with wound care. Date Signed: 05/23/2018 05:37 PM Electronically Signed By:Sheryl Thompson LCSW
[2018-05-23] MEDS ORDERED: INSULIN GLARGINE 100 UNITS/ML UNIT SC SCH (21:00)
[2018-05-24 05:17] LABS: INR 1.07 (0.83-1.16); PROTIME(PATIENT) 14.1 SEC (12.0-15.0)
[2018-05-24] MEDS: ENOXAPARIN 80 MG/0.8 ML SYR SC SCH ×2 (09:16→21:16)
[2018-05-24] MEDS: ACETAMINOPHEN 325 MG TAB PO PRN ×3 (09:17→21:13)
[2018-05-24] MEDS: oxyCODONE IR 5 MG TAB PO PRN ×3 (09:17→21:13)
[2018-05-24] MEDS: INSULIN LISPRO 100 UNIT/ML SC SCH ×3 (10:11→17:08)
[2018-05-24] MEDS: INSULIN GLARGINE 100 UNITS/ML UNIT SC SCH ×2 (12:22→21:12)
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
[2018-05-24] MEDS ORDERED: WARFARIN SODIUM 7.5 MG TAB PO ONE (16:00)
--- NOTE | 2018-05-24 16:03 | HOSPPROG ---
Hospitalist Progress Note Assessment/Plan: 47 yo M w/ IDDM and FVL presents for ongoing management of L diabetic foot infection. #L diabetic foot infection: S/p I&D x2, antibiotics, and wound vac over the last month. Wound appears to be healing well but still rather deep. - Wound care. They are planning on placing a wound vac, possibly tomorrow or thursday - PT/OT, working on getting knee scooter and boot #IDDM: Recent A1c 15%. - Insulin glargine 15 u qhs (switched from BID) + standard SSI #Hx DVT/PE: W/ hx of FVL and IVC filter in place from 2005. - Continue warfarin with Lovenox bridge, will discuss warfarin dose with pharmacy - Monitor daily INR #Homeless: - Limited discharge options. Declined from SNFs. Patient refusing homeless shelters, respite in [place]. Case management is making referrals to LTCs Diet - Regular Code - Full Ppx - warfarin, Lovenox Dispo - Switch to inpatient admission. Unsafe for discharge to street as unable to ambulate and need for wound vac. Subjective: Upset today that his BG wasn't checked last night when he felt that it was low. Otherwise, pain in foot stable. No fevers. I visualized his wound with surgery PA this afternoon. Objective: Vital Signs Temp Pulse Resp BP Pulse Ox 36.4 C 77 18 101/64 93 05/24/18 11:42 05/24/18 11:42 05/24/18 11:42 05/24/18 11:42 05/24/18 11:42 05/23/18 05/24/18 05/25/18 05:59 05:59 05:59 Intake Total 800 Balance 800 PT 14.1 SEC (12.0-15.0) 05/24/18 04:13 INR 1.07 (0.83-1.16) 05/24/18 04:13 - Physical Exam Constitutional: no apparent distress, appears nourished, not in pain Eyes: PERRL, anicteric sclera, EOMI Ears, Nose, Mouth, Throat: moist mucous membranes, hearing normal, ears appear normal, no oral mucosal ulcers Cardiovascular: regular rate and rhythym, no murmur, rub, or gallop Respiratory: no respiratory distress, no rales or rhonchi, clear to auscultation Gastrointestinal: normoactive bowel sounds, soft, non-tender abdomen, no palpable masses Skin: other (left medial heel wound with granulation tissue under bandages, no surrounding erythema or discharge) Neurologic: AAOx3, sensation intact bilaterally Psychiatric: interacting appropriately, not anxious, not encephalopathic, thought process linear ICD10 Worksheet Patient Problems: Problems Problem Status Onset Cellulitis Acute Diabetic foot infection Acute Hyperglycemia Acute Leukocytosis Acute Pseudomonas infection Acute
--- NOTE | 2018-05-24 20:22 | SOAPPROG ---
SOAP Progress Note Assessment/Plan: Assessment/Plan: 47yo M with poorly controlled type 2 diabetes, homeless. Multiple admissions for left heel diabetic foot ulcer. S/p excisional debridement. Wound care - iodofoam with absorptive outer bandage (change outer bandage PRN saturation). Consider wound vac Weds. Pt also understands may need bedside debridement weds. Dressing change today without pain medication (tolerated great!) Knee scooter, custom orthotic from previous visit PT and OT Appreciate hospitalist management of comorbidities Dispo: safe discharge planning discussed with case management. S: pain is significantly improved compared to prior admissions. He recognizes that he has anxiety with the anticipation of the wound being touched. O: Laying in bed, comfortable, NAD No increased work of breathing No peripheral edema No bishnu wound erythema. Base of the wound with approximately 50% healthy granulation tissue. Soft slough in base of wound- unable to debride at bedside due to anxiety/pain. Dressings reapplied Objective: Vital Signs Temp Pulse Resp BP Pulse Ox 36.6 C 66 18 122/68 H 89 L 05/24/18 16:12 05/24/18 16:12 05/24/18 16:12 05/24/18 16:12 05/24/18 16:12 05/23/18 05/24/18 05/25/18 05:59 05:59 05:59 Intake Total 800 2100 Balance 800 2100 PT 14.1 SEC (12.0-15.0) 05/24/18 04:13 INR 1.07 (0.83-1.16) 05/24/18 04:13 ICD10 Worksheet Patient Problems: Problems Problem Status Onset Cellulitis Acute Diabetic foot infection Acute Hyperglycemia Acute Leukocytosis Acute Pseudomonas infection Acute
[2018-05-25 05:29] LABS: INR 1.22 (0.83-1.16); PROTIME(PATIENT) 15.6 SEC (12.0-15.0)
[2018-05-25] MEDS: OXYCODONE/APAP 5/325 TAB PO PRN ×2 (07:38→11:44)
[2018-05-25] MEDS: ENOXAPARIN 80 MG/0.8 ML SYR SC SCH (07:38)
[2018-05-25] MEDS: INSULIN LISPRO 100 UNIT/ML SC SCH ×2 (08:10→12:24)
--- NOTE | 2018-05-25 11:02 | HOSPPROG ---
Hospitalist Progress Note Assessment/Plan: 47 yo M w/ IDDM and FVL presents for ongoing management of L diabetic foot infection. #L diabetic foot infection: S/p I&D x2, antibiotics, and wound vac over the last month. Wound appears to be healing well but still rather deep. - Wound care. They are planning on placing wound vac, possibly thursday - PT/OT. They are working on getting him a boot before fully engaging with therapy. CM also working on getting rolling scooter #IDDM: Recent A1c 15%. Fasting BG elevated, need better control to promote healing. - Increase glargine 15-<>20u qhs, continue SSI, regular BG checks #Hx DVT/PE: W/ hx of FVL and IVC filter in place from 2005. - Continue warfarin with Lovenox bridge, appreciate pharmacy help with warfarin dosing - Monitor daily INR #Homeless: - Limited discharge options. Declined from SNFs. Patient refusing homeless shelters, respite in [place]. Case management is making referrals to LTCs Diet - Regular Code - Full Ppx - warfarin, Lovenox Dispo - Continue inpatient admission. Unsafe for discharge to street as unable to ambulate and need for wound vac. Subjective: Wound re-dressed yesterday afternoon, tolerated well. Eating ok, moving bowels. No fevers. Pain controlled. Objective: Vital Signs Temp Pulse Resp BP Pulse Ox 36.5 C 65 12 92/54 L 93 05/25/18 07:57 05/25/18 07:57 05/25/18 07:57 05/25/18 07:57 05/25/18 07:57 05/24/18 05/25/18 05/26/18 05:59 05:59 05:59 Intake Total 800 3100 Balance 800 3100 PT 15.6 SEC (12.0-15.0) H 05/25/18 04:31 INR 1.22 (0.83-1.16) H 05/25/18 04:31 - Physical Exam Constitutional: no apparent distress, appears nourished, not in pain Eyes: PERRL, anicteric sclera, EOMI Ears, Nose, Mouth, Throat: moist mucous membranes, hearing normal, ears appear normal, no oral mucosal ulcers Cardiovascular: regular rate and rhythym, no murmur, rub, or gallop Respiratory: no respiratory distress, no rales or rhonchi, clear to auscultation Gastrointestinal: normoactive bowel sounds, soft, non-tender abdomen, no palpable masses Skin: other (left heel wound wrapped) Musculoskeletal: full muscle strength, no muscle tenderness, normal joint ROM Neurologic: AAOx3, sensation intact bilaterally Psychiatric: interacting appropriately, not anxious, not encephalopathic, thought process linear ICD10 Worksheet Patient Problems: Problems Problem Status Onset Cellulitis Acute Diabetic foot infection Acute Hyperglycemia Acute Leukocytosis Acute Pseudomonas infection Acute
[2018-05-25] MEDS ORDERED: WARFARIN SODIUM 5 MG TAB PO SCH (16:00)
[2018-05-25 16:06] VITALS: BP 114/74
[2018-05-25] MEDS ORDERED: INSULIN GLARGINE 100 UNITS/ML UNIT SC SCH (21:00)
--- NOTE | 2018-05-25 23:39 | PDDCSUM ---
Discharge Summary Discharge Summary: Date of Admission: 05/22/2018 Date of Discharge: 05/25/2018 Discharge Diagnoses: 1. AMA discharge 2. Diabetic left foot infection/abscess 3. Poorly controlled T2DM 4. H/o DVT/PE, factor V Leiden 5. Homelessness Brief Hospital Course by Problem: 47yo M who is homeless re-presented to the ED with inability to walk due to left heel wound after leaving AMA for the 3rd time. This is the 4th hospitalization. In prior admissions he has undergone I&Dx2, completed course of antibiotics, and had a wound vac. The wound did not appear infected and he did not receive antibiotics. Wound care was consulted and they were planning on putting back on wound vac. PT was also consulted and were trying to get him a custom walking boot in addition to a rolling knee scooter. His dispo has been challenging given his AMA discharges - SNFs have declined to accept him. The patient has refused our resources for shelters and respite. Unfortunately, Mr Venegas again became irate on the afternoon of 05/25. He was upset about working with PT and us not feeding his 19yo son (who is also homeless and with him in the room). He was also still upset that we couldn't find a SNF for him. Despite myself and the RN trying to convince him to stay, he continued to yell and left without medications, namely his insulin or anticoagulation. He appears to have some impulse control issues. He is at high risk for numerous medical problems including hyperglycemia, DKA, venous thrombosis, sepsis/worsening infection, loss of limb and these were discussed with him. Medications: Please refer to EMR. He left AMA and declined to be prescribed any medications. Follow Up Plan: 1. Unclear. Patient is homeless and doesn't have PCP to help coordinate care. I suspect he may come back to this or another ED in the near future. Physical Exam: Vitals reviewed and patient examined on day of discharge. He has been afebrile with normal heart rate and BP. Alert and oriented. No murmur on cardiac exam. Lungs clear. Abdomen soft and nt. No lower extremity edema. Left heel wound without surrounding erythema or drainage but is rather deep.
--- NOTE | 2018-05-26 09:48 | ASMTLACE ---
[place] Length of stay for Answers: 3 days current admission Acuity / Level of Answers: Yes Care: Did the patient have an inpatient admission? Comorbidities - select Answers: Diabetes (uncontrolled or all that apply controlled) Other Notes: L LE Cellulitis # of Emergency department Answers: 5-8 visits in the last 6 months Social determinants Answers: Homelessness (street, longterm) Lack of community resources and/or lack of social support (no pcp, lives alone, transportation, jessica d) Score: 19 Date Signed: 05/26/2018 09:47 AM Electronically Signed By:LEW Meléndez
--- NOTE | 2018-05-26 09:49 | ASMTCMCOM ---
CM Note CM Note Notes: Pt left AMA yesterday afternoon. Pt declined ortho boot and coumadin medication. Pt had been upset [facility] did not feed his son. Date Signed: 05/26/2018 09:49 AM Electronically Signed By:LEW Meléndez
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
== END 2018-05-25 16:41 | disposition left against medical advice (07) | DRG 420 ==
LOC: INTOOBSV 22:22 → F3N 23:45 → OBSVTOIN 05-23 13:32
PROVIDERS: ADMIT Student in an Organized Health Care Education/Training Program; ATTEND Student in an Organized Health Care Education/Training Program
DX: E11.628 Type 2 diabetes mellitus with other skin complications (principal); L02.612 Cutaneous abscess of left foot; L08.9 Local infection of the skin and subcutaneous tissue, unspecified; Z86.711 Personal history of pulmonary embolism; Z86.718 Personal history of other venous thrombosis and embolism; Z59.0 Homelessness; Z23 Encounter for immunization; Z72.0 Tobacco use
CPT/HCPCS: 97163-GP; G0008; G0378; J1650; J1815

== ENCOUNTER 2018-07-06 17:48 | Emergency (ER) | payer MEDICAID ==
[2018-07-06 17:59] VITALS: BP 150/100
--- NOTE | 2018-07-06 18:04 | EDPHY ---
H & P Stated Complaint: Med clear for fpc, + heel infection Time Seen by Provider: 07/06/18 17:55 HPI/ROS: Chief Complaint: Foot ulcer, possible bed bugs, med clearance HPI: 47-year-old male being brought in for medical clearance for fpc. Patient has a known wound on his left heel which has been treated for MRSA in the past. Patient left the hospital against medical advice about a month ago. He has not followed up at wound care. He has not been taking any antibiotics. He says he believes it is getting better. No redness. There is some discharge. He is also complaining of having bedbugs. He is itching. No skin rash. No fevers or chills. Otherwise is without complaint. ROS: 10 systems were reviewed and were negative except those elements noted in the HPI. Social History: Positive smoking, positive alcohol, homeless Family History: non-contributory Physical Exam: Gen: Awake, Alert, No Distress, patient is noted to have bedbug infestation of his clothing on my examination. HEENT: Nose: no rhinorrhea Eyes: PERRLA, EOMI Mouth: Moist mucosa Neck: Supple, no JVD Chest: nontender, lungs clear to auscultation Heart: S1, S2 normal, no murmur Abd: Soft, non-tender, no guarding Back: no CVA tenderness, no midline tenderness Ext: Patient has an ulcerative lesion on the heel of his left foot. There is some mild purulent discharge. There is no erythema. It is mildly tender. Skin: no rash Neuro: CN II-XII intact, Sensation grossly intact, Strength 5/5 in bilateral upper and lower extremities - Personal History Tetanus Vaccine Date: 2015 - Medical/Surgical History Hx Asthma: No Hx Chronic Respiratory Disease: No Hx Diabetes: Yes Hx Cardiac Disease: No Hx Renal Disease: No Hx Cirrhosis: No Hx Alcoholism: No Hx HIV/AIDS: No Hx Splenectomy or Spleen Trauma: No Other PMH: DM, PE, GREEN FILL FILTER LIKE IVC, L FOOT SX, right foot wound - Social History Smoking Status: Heavy smoker Constitutional: Initial Vital Signs Temperature (C) 37.2 C 07/06/18 17:57 Heart Rate 113 H 07/06/18 17:57 Respiratory Rate 18 07/06/18 17:57 Blood Pressure 150/100 H 07/06/18 17:57 O2 Sat (%) 98 07/06/18 17:57 O2 Delivery Mode Room Air Allergies/Adverse Reactions: No Known Allergies Allergy (Verified 05/02/18 23:25) Home Medications: Medication Instructions Recorded NK [No Known Home Meds] 05/23/18 Medical Decision Making ED Course/Re-evaluation: Follow up with the wound care clinic in 2-3 days for further evaluation. Make sure to clean thoroughly or discard her clothing and other bending materials. Return to the emergency department for increasing redness, worsening pain, fevers or chills, or any other concerns. Departure - Departure Disposition: Law Enforcement/Court/Penitentiary Clinical Impression: Foot ulcer, Infestation by bed bug Condition: Good Instructions: Bed Bugs (ED), Wound Infection (ED) Additional Instructions: Follow up with the wound care clinic in 2-3 days for further evaluation. Make sure to clean thoroughly or discard her clothing and other bending materials. Return to the emergency department for increasing redness, worsening pain, fevers or chills, or any other concerns. MEDICALLY CLEAR FOR ALF Referrals: [facility] (ED,. [Edm Groups for Call Sched] - As per Instructions
== END 2018-07-06 18:27 ==
DX: L97.429 Non-pressure chronic ulcer of left heel and midfoot with unspecified severity (principal); B88.9 Infestation, unspecified; E11.621 Type 2 diabetes mellitus with foot ulcer; Z72.0 Tobacco use; Z59.0 Homelessness

== ENCOUNTER 2018-08-29 15:34 | Emergency (ER) | payer SELFPAY ==
[2018-08-29 15:45] VITALS: BP 184/106
--- NOTE | 2018-08-29 16:06 | EDPHY ---
H & P Stated Complaint: Sores on hands x 2-3 wks; homeless; out of insulin Time Seen by Provider: 08/29/18 16:05 - Personal History Current Tetanus Diphtheria and Acellular Pertussis (TDAP): Yes Tetanus Vaccine Date: 2015 - Medical/Surgical History Hx Asthma: No Hx Chronic Respiratory Disease: No Hx Diabetes: Yes Hx Cardiac Disease: No Hx Renal Disease: No Hx Cirrhosis: No Hx Alcoholism: No Hx HIV/AIDS: No Hx Splenectomy or Spleen Trauma: No Other PMH: DM (noncompliant), PE, GREEN FILL FILTER LIKE IVC, L FOOT SX, right foot wound - Social History Smoking Status: Heavy smoker Constitutional: Initial Vital Signs Temperature (C) 36.7 C 08/29/18 15:42 Heart Rate 104 H 08/29/18 15:42 Respiratory Rate 18 08/29/18 15:42 Blood Pressure 184/106 H 08/29/18 15:42 O2 Sat (%) 97 08/29/18 15:42 O2 Delivery Mode Room Air Allergies/Adverse Reactions: No Known Allergies Allergy (Verified 08/29/18 15:37) Home Medications: Medication Instructions Recorded Sulfamethox/Tmp 800/160 mg 1 tab PO BID #14 tab 08/29/18 [Bactrim Ds] Medical Decision Making ED Course/Re-evaluation: CHIEF COMPLAINT: Sores all over body HISTORY OF PRESENT ILLNESS: The patient is a homeless 47 y/o male with a history of diabetes for which he is not compliant with medication complaining of sores covering his body. He reports he has not had insulin in at least 2 months. He first noticed a pustule on his right knuckle which became a scab. He soon developed more pustules and scabs over all of his extremities. He denies any other associated symptoms. REVIEW OF SYSTEMS: A comprehensive 10 system review of systems is otherwise negative aside from elements mentioned in the history of present illness and medical decision making. PHYSICAL EXAM: HR, BP, O2 Sat, RR. Temp noted General Appearance: Alert, well hydrated, appropriate. Head: Atraumatic without scalp tenderness or obvious injury Eyes: Pupils equal, round, reactive to light and accommodation, EOMI, no trauma , no injection. Ears: Clear bilaterally, no perforation, normal landmarks Nose: Atraumatic, no rhinorrhea, clear. Musculoskeletal: Normal active ROM of all extremities, atraumatic. Neurological: Alert, appropriate, and interactive. Skin: Numerous pustules and scabs on every extremity. Good turgor, no nodules on palpation. Past medical history: Diabetes, MRSA Past surgical history: Denies Family history: Non-contributory Social history: Homeless, not compliant with medications, Medicaid patient DIAGNOSTICS/PROCEDURES/CRITICAL CARE TIME: DIFFERENTIAL DIAGNOSIS: The differential diagnosis for this patient includes but is not limited to skin infection, and medical non-compliance MEDICAL DECISION MAKING: The patient is a homeless man well known to this Emergency department complaining of scabs and pustules covering the body. He denies any other associated symptoms. His exam is consistent with a staph skin infections. I have provided a script for antibiotics and will have the immigration case manager meet with him. He is safe to follow up outpatient with [facility]. - Data Points Medications Given: Discontinued Medications Trimethoprim/Sulfamethoxazole (Bactrim Ds) 1 ea PO EDNOW ONE PRN Reason: Protocol Stop: 08/29/18 16:11 Last Admin: 08/29/18 16:16 Dose: 1 ea Departure - Departure Disposition: Home, Routine, Self-Care Clinical Impression: Staph skin infection, Noncompliance with diabetes treatment Condition: Good Instructions: MRSA (Methicillin-Resistant Staphylococcus Aureus) (ED) Additional Instructions: 1. Please take your antibiotic as directed and follow up with [facility] when possible. 2. Return to the ED for worsening of condition. Referrals: [facility],. [Clinic] - As per Instructions Prescriptions: Sulfamethox/Tmp 800/160 mg [Bactrim Ds] 1 tab PO BID #14 tab
[2018-08-29] MEDS ORDERED: SULFAMETHOX/TMP 800/160 MG 1 TAB PO ONE (16:10)
== END 2018-08-29 16:40 | disposition home or self-care (01) ==
DX: L08.9 Local infection of the skin and subcutaneous tissue, unspecified (principal); B95.8 Unspecified staphylococcus as the cause of diseases classified elsewhere; E11.9 Type 2 diabetes mellitus without complications; Z91.19 Patient's noncompliance with other medical treatment and regimen; Z59.0 Homelessness

== ENCOUNTER 2018-09-28 14:28 | Inpatient (IN) | payer MEDICAID ==
--- NOTE | 2018-09-28 16:25 | EDPHY ---
H & P Stated Complaint: CP, SOB, sores all over body, DM Time Seen by Provider: 09/28/18 15:46 HPI/ROS: CHIEF COMPLAINT: Multiple complaints including dyspnea, right anterior pleuritic chest pain, vomiting, tachycardia and dehydration HISTORY OF PRESENT ILLNESS: The patient has multiple complaints. He is a homeless diabetic who has been poorly compliant with his medications. He presents to the ED with several days of tachycardia, right anterior chest pain, vomiting, decreased oral intake, generalized weakness and chronic excoriations noted to his hands and legs. 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 He was last treated with Bactrim approximately 1 week ago. The patient has been having follow up with [facility]. REVIEW OF SYSTEMS: A comprehensive 10 point review of systems is otherwise negative aside from elements mentioned in the history of present illness. Source: Patient Exam Limitations: No limitations - Personal History Current Tetanus/Diphtheria Vaccine: Yes Current Tetanus Diphtheria and Acellular Pertussis (TDAP): Yes Tetanus Vaccine Date: 2015 - Medical/Surgical History Hx Asthma: No Hx Chronic Respiratory Disease: No Hx Diabetes: Yes Hx Cardiac Disease: No Hx Renal Disease: No Hx Cirrhosis: No Hx Alcoholism: No Hx HIV/AIDS: No Hx Splenectomy or Spleen Trauma: No Other PMH: DM (noncompliant), PE, GREEN FILL FILTER LIKE IVC, L FOOT SX, right foot wound - Social History Smoking Status: Heavy smoker - Physical Exam Exam: General Appearance: Disheveled male, mild discomfort Eyes: Pupils equal and round no pallor or injection ENT, Mouth: Dry mucous membranes, poor dentition Respiratory: There are no retractions, lungs are clear to auscultation Cardiovascular: Tachycardic Gastrointestinal: Abdomen is soft and nontender, no masses, bowel sounds normal Neurological: A&O, normal motor function, normal sensory exam, normal cranial nerves Skin: 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 No drainable abscess appreciated Musculoskeletal: Neck is supple nontender Extremities: symmetrical, full range of motion Psychiatric: Patient is oriented X 3, there is no agitation Constitutional: Initial Vital Signs Temperature (C) 36.4 C 09/28/18 14:41 Heart Rate 111 H 09/28/18 14:41 Respiratory Rate 24 H 09/28/18 14:41 Blood Pressure 119/91 H 09/28/18 14:41 O2 Sat (%) 97 09/28/18 14:41 O2 Delivery Mode Room Air Allergies/Adverse Reactions: No Known Allergies Allergy (Verified 09/28/18 14:40) Home Medications: Medication Instructions Recorded Sulfamethox/Tmp 800/160 mg 1 tab PO BID #20 tab 09/28/18 [Bactrim DS] Medical Decision Making - Diagnostics Imaging Results: Imaging Impressions Chest/Thorax CTA 09/28/18 16:13 Impression: 1. No evidence of pulmonary embolus using CT protocol. 2. Subpleural blebs and some interstitial lung disease inferior aspect of the right and left upper lobes as well as right lower lobe posteriorly as detailed above. 3. Emphysematous changes with hyperexpanded lungs and possible COPD Findings discussed with Morgan Larsen M.D. at 17:05 hour, 09/28/2018. ED Course/Re-evaluation: Patient presents the emergency department with concerns about possibility of a recurrent PE. The patient is supposed to be anticoagulated but reports he has been off of those medications for the past 6 years. Patient did undergo CT pulmonary angiogram which demonstrates no evidence of pulmonary embolism. The patient does have changes consistent with emphysema. Patient is noted to be hyperglycemic however has no evidence of an acidosis or anion gap. He was given subcutaneous insulin. The patient is hyponatremic likely secondary to volume loss. Given his homeless status, hyperglycemia without DKA and recurrent MRSA folliculitis I do feel he should be admitted to the hospital for evaluation and treatment. Consultation is made with Dr. Gerardo from the hospitalist service. Differential Diagnosis: Differential diagnosis considered includes DKA, dehydration, metabolic abnormality, MRSA, pneumonia - Data Points Laboratory Results: Laboratory Results 09/28/18 16:05 09/28/18 16:05 09/28/18 09/28/18 09/28/18 17:00 16:12 16:05 WBC RBC Hgb POC Hgb 15.6 gm/dL gm/dL (13.7-17.5) Hct POC Hct 46 % % (40-51) MCV MCH MCHC RDW Plt Count MPV Neut % (Auto) Lymph % (Auto) Orange % (Auto) Eos % (Auto) Baso % (Auto) Nucleat RBC Rel Count Absolute Neuts (auto) Absolute Lymphs (auto) Absolute Monos (auto) Absolute Eos (auto) Absolute Basos (auto) Absolute Nucleated RBC Immature Gran % Immature Gran # VBG pH 7.46 H (7.31-7.42) VBG Lactic Acid 1.2 mmol/L mmol/L (0.7-2.1) POC Sodium 127 mEq/L L mEq/L (135-145) Sodium POC Potassium 4.6 mEq/L mEq/L (3.3-5.0) Potassium POC Chloride 89 mEq/L L mEq/L (97-110) Chloride Carbon Dioxide Anion Gap POC BUN 27 mg/dL H mg/dL (7-23) BUN Creatinine POC Creatinine 0.8 mg/dL mg/dL (0.7-1.3) Estimated GFR Glucose POC Glucose 583 mg/dL H* mg/dL (70-100) Calcium 09/28/18 09/28/18 16:05 16:05 WBC 8.62 10^3/uL 10^3/uL (3.80-9.50) RBC 4.73 10^6/uL 10^6/uL (4.40-6.38) Hgb 14.2 g/dL g/dL (13.7-17.5) POC Hgb Hct 40.8 % % (40.0-51.0) POC Hct MCV 86.3 fL fL (81.5-99.8) MCH 30.0 pg pg (27.9-34.1) MCHC 34.8 g/dL g/dL (32.4-36.7) RDW 13.0 % % (11.5-15.2) Plt Count 254 10^3/uL 10^3/uL (150-400) MPV 10.2 fL fL (8.7-11.7) Neut % (Auto) 65.6 % % (39.3-74.2) Lymph % (Auto) 26.5 % % (15.0-45.0) Orange % (Auto) 6.8 % % (4.5-13.0) Eos % (Auto) 0.2 % L % (0.6-7.6) Baso % (Auto) 0.3 % % (0.3-1.7) Nucleat RBC Rel Count 0.0 % % (0.0-0.2) Absolute Neuts (auto) 5.65 10^3/uL 10^3/uL (1.70-6.50) Absolute Lymphs (auto) 2.28 10^3/uL 10^3/uL (1.00-3.00) Absolute Monos (auto) 0.59 10^3/uL 10^3/uL (0.30-0.80) Absolute Eos (auto) 0.02 10^3/uL L 10^3/uL (0.03-0.40) Absolute Basos (auto) 0.03 10^3/uL 10^3/uL (0.02-0.10) Absolute Nucleated RBC 0.00 10^3/uL 10^3/uL (0-0.01) Immature Gran % 0.6 % % (0.0-1.1) Immature Gran # 0.05 10^3/uL 10^3/uL (0.00-0.10) VBG pH VBG Lactic Acid POC Sodium Sodium 123 mEq/L L mEq/L (135-145) POC Potassium Potassium 4.8 mEq/L mEq/L (3.5-5.2) POC Chloride Chloride 90 mEq/L L mEq/L (97-110) Carbon Dioxide 25 mEq/l mEq/l (22-31) Anion Gap 8 mEq/L mEq/L (6-14) POC BUN BUN 30 mg/dL H mg/dL (7-23) Creatinine 0.8 mg/dL mg/dL (0.7-1.3) POC Creatinine Estimated GFR > 60 Glucose 591 mg/dL H* mg/dL (70-100) POC Glucose Calcium 9.0 mg/dL mg/dL (8.5-10.4) Medications Given: Discontinued Medications Insulin Human Regular (Humulin R) 8 unit SC EDNOW ONE Stop: 09/28/18 16:49 Last Admin: 09/28/18 16:58 Dose: 8 units Point of Care Test Results: Chemistry 09/28/18 16:12 POC Sodium 127 mEq/L L mEq/L (135-145) POC Potassium 4.6 mEq/L mEq/L (3.3-5.0) POC Chloride 89 mEq/L L mEq/L (97-110) POC BUN 27 mg/dL H mg/dL (7-23) POC Creatinine 0.8 mg/dL mg/dL (0.7-1.3) POC Glucose 583 mg/dL H* mg/dL (70-100) ISTAT H&H 09/28/18 16:12 POC Hgb 15.6 gm/dL gm/dL (13.7-17.5) POC Hct 46 % % (40-51) Departure - Departure Disposition: [facility] Clinical Impression: Hyperglycemia, Hyponatremia Prescriptions: Sulfamethox/Tmp 800/160 mg [Bactrim DS] 1 tab PO BID #20 tab
[2018-09-28] MEDS ORDERED: IOHEXOL 350mgI/ML (OMNIPAQUE) 150 ML BTL IV ONE (16:27)
[2018-09-28 16:38] LABS: PLATELET COUNT 254 10^3/uL (150-400)
[2018-09-28] MEDS ORDERED: INSULIN REGULAR HUMAN 100 UNIT/ML UNIT SC ONE (16:48)
[2018-09-28] MEDS ORDERED: SULFAMETHOX/TMP 800/160 MG 1 TAB PO ONE (18:28)
[2018-09-28] MEDS ORDERED: NS 1,000 ML IV ONE (18:33)
--- NOTE | 2018-09-28 19:45 | PDGENHP ---
History and Physical - Chief Complaint Weakness - History of Present Illness This is a 47-year-old homeless non compliant diabetic presented emergency department today with shortness of breath, of right chest pain, vomiting, frequent urination, and dehydration. Patient states that he has been urinating multiple times per day. He has some pain with urination and thinks his prostate may be acting up. He also reports of right upper chest pain that been going on for few days. Denies any trauma. There is any alcohol use. He has not establish care with a primary care provider since moving from [place] 2 years ago. He has not had treatment of his diabetes since moving to [place]. He was last hospitalized at [facility] in May of 2018 where he ultimately left against medical advice after being treated for diabetic left foot infection. Patient has multiple sores on his hands and his thighs that he has had for a long time that have not healed. History Information - Allergies/Home Medication List Allergies/Adverse Reactions: No Known Allergies Allergy (Verified 09/28/18 14:40) Home Medications: Ascorbic Acid [Vitamin C 500 mg (*)] 1,000 mg PO DAILY 09/28/18 [Last Taken ] I have personally reviewed and updated: family history, medical history, social history, surgical history - Past Medical History diabetes type 2 Additional medical history: FVL, hospitalization for MRSA folliculitis - Surgical History Additional surgical history: IVC filter placed in 2005 - Family History Additional family history: FVL - Social History Smoking Status: Heavy smoker (Smokes half pack a day) Alcohol Use: None Drug Use: None Review of Systems Review of Systems: ROS: 10pt was reviewed & negative except for what was stated in HPI & below Physical Exam Physical Exam: Temp Pulse Resp BP Pulse Ox 36.8 C 94 18 97/64 L 97 09/28/18 16:24 09/28/18 18:43 09/28/18 18:43 09/28/18 18:43 09/28/18 18:43 Constitutional: not in pain, unkempt Eyes: PERRL, anicteric sclera, EOMI Ears, Nose, Mouth, Throat: moist mucous membranes, hearing normal, ears appear normal, no oral mucosal ulcers Cardiovascular: regular rate and rhythym, no murmur, rub, or gallop, No edema Respiratory: no respiratory distress, no rales or rhonchi, clear to auscultation Gastrointestinal: normoactive bowel sounds, soft, non-tender abdomen, no palpable masses, No guarding, No rebound Genitourinary: no bladder fullness, no bladder tenderness Skin: other (Multiple open sores on both hands, area of erythema and induration right thigh) Musculoskeletal: full muscle strength, no muscle tenderness, normal joint ROM, no joint effusions Neurologic: AAOx3, CN II-XII Intact, No facial droop Psychiatric: interacting appropriately, not anxious, not encephalopathic, thought process linear Lymph, Heme, Immunologic: no cervical LAD, no supraclavicular LAD Lab Data & Imaging Review 09/28/18 16:05 09/28/18 16:05 WBC 8.62 10^3/uL (3.80-9.50) 09/28/18 16:05 RBC 4.73 10^6/uL (4.40-6.38) 09/28/18 16:05 Hgb 14.2 g/dL (13.7-17.5) 09/28/18 16:05 POC Hgb 9.2 gm/dL (13.7-17.5) L 09/28/18 18:51 Hct 40.8 % (40.0-51.0) 09/28/18 16:05 POC Hct 27 % (40-51) L 09/28/18 18:51 MCV 86.3 fL (81.5-99.8) 09/28/18 16:05 MCH 30.0 pg (27.9-34.1) 09/28/18 16:05 MCHC 34.8 g/dL (32.4-36.7) 09/28/18 16:05 RDW 13.0 % (11.5-15.2) 09/28/18 16:05 Plt Count 254 10^3/uL (150-400) 09/28/18 16:05 MPV 10.2 fL (8.7-11.7) 09/28/18 16:05 Neut % (Auto) 65.6 % (39.3-74.2) 09/28/18 16:05 Lymph % (Auto) 26.5 % (15.0-45.0) 09/28/18 16:05 Waller % (Auto) 6.8 % (4.5-13.0) 09/28/18 16:05 Eos % (Auto) 0.2 % (0.6-7.6) L 09/28/18 16:05 Baso % (Auto) 0.3 % (0.3-1.7) 09/28/18 16:05 Nucleat RBC Rel Count 0.0 % (0.0-0.2) 09/28/18 16:05 Absolute Neuts (auto) 5.65 10^3/uL (1.70-6.50) 09/28/18 16:05 Absolute Lymphs (auto) 2.28 10^3/uL (1.00-3.00) 09/28/18 16:05 Absolute Monos (auto) 0.59 10^3/uL (0.30-0.80) 09/28/18 16:05 Absolute Eos (auto) 0.02 10^3/uL (0.03-0.40) L 09/28/18 16:05 Absolute Basos (auto) 0.03 10^3/uL (0.02-0.10) 09/28/18 16:05 Absolute Nucleated RBC 0.00 10^3/uL (0-0.01) 09/28/18 16:05 Immature Gran % 0.6 % (0.0-1.1) 09/28/18 16:05 Immature Gran # 0.05 10^3/uL (0.00-0.10) 09/28/18 16:05 VBG pH 7.46 (7.31-7.42) H 09/28/18 16:05 VBG Lactic Acid 1.2 mmol/L (0.7-2.1) 09/28/18 17:00 POC Sodium 142 mEq/L (135-145) 09/28/18 18:51 Sodium 123 mEq/L (135-145) L 09/28/18 16:05 POC Potassium 3.3 mEq/L (3.3-5.0) 09/28/18 18:51 Potassium 4.8 mEq/L (3.5-5.2) 09/28/18 16:05 POC Chloride 108 mEq/L (97-110) 09/28/18 18:51 Chloride 90 mEq/L (97-110) L 09/28/18 16:05 Carbon Dioxide 25 mEq/l (22-31) 09/28/18 16:05 Anion Gap 8 mEq/L (6-14) 09/28/18 16:05 POC BUN 20 mg/dL (7-23) 09/28/18 18:51 BUN 30 mg/dL (7-23) H 09/28/18 16:05 Creatinine 0.8 mg/dL (0.7-1.3) 09/28/18 16:05 POC Creatinine 0.2 mg/dL (0.7-1.3) L D 09/28/18 18:51 Estimated GFR > 60 09/28/18 16:05 Glucose 591 mg/dL (70-100) H* 09/28/18 16:05 POC Glucose 260 mg/dL (70-100) H 09/28/18 18:51 Calcium 9.0 mg/dL (8.5-10.4) 09/28/18 16:05 Assessment & Plan Assessment: # uncontrolled diabetes mellitus # pseudo hyponatremia in the setting of hyperglycemia # dehydration # history of MRSA folliculitis with multiple open wounds # tobacco abuse # homelessness Plan: -start basal insulin -start doxycycline -wound care consult -IV fluids -nicotine replacement -social work to help with finding out patient follow-up Place in observation
[2018-09-28] MEDS ORDERED: D50W 25 GM/50 ML SYR IVP PRN (19:53)
[2018-09-28] MEDS ORDERED: INSULIN GLARGINE 100 UNITS/ML UNIT SC SCH (21:00)
[2018-09-28] MEDS: 1/2 NS 1,000 ML IV SCH (21:23)
[2018-09-28] MEDS: DOXYCYCLINE HYCLATE 100 MG CAP/TAB PO SCH (21:25)
[2018-09-28] MEDS: NICOTINE 14 MG/24 HR PATCH TD SCH (21:26)
[2018-09-29 05:26] LABS: PLATELET COUNT 260 10^3/uL (150-400)
[2018-09-29] MEDS: 1/2 NS 1,000 ML IV SCH (07:27)
[2018-09-29] MEDS: INSULIN LISPRO 100 UNIT/ML SC SCH ×4 (07:57→18:04)
[2018-09-29] MEDS: DOXYCYCLINE HYCLATE 100 MG CAP/TAB PO SCH ×2 (10:02→20:49)
[2018-09-29] MEDS ORDERED: INSULIN GLARGINE 100 UNITS/ML UNIT SC SCH (11:53)
[2018-09-29] MEDS ORDERED: D50W 25 GM/50 ML SYR IVP PRN (11:53)
--- NOTE | 2018-09-29 11:54 | HOSPPROG ---
Hospitalist Progress Note Assessment/Plan: 47yo homeless M with diabetes complicated by recent foot wound, history of PE/ DVT who has not been taking any medications presents with generalized weakness and increased urinary frequency found to be severely hyperglycemic. 1. Diabetes w/hyperglycemia: Not in DKA/HHS. A1c >16.9%. - Increase glargine 10->15u qhs - Increase SSI to resistant, regular BG checks - Would benefit from ACEi, defer until can reliably take meds 2. Pseudohyponatremia: Related to elevated glucose levels - Monitor 3. Right thigh erythema: C/w folliculitis. Has h/o MRSA. Not septic. - No drainable fluid collection on exam - Continue doxycycline 100mg bid 4. Tobacco use - Nicotine patch 5. Homelessness 6. Urinary frequency: Related to hyperglycemia. UA without infection. 7. Right sided chest pain: Not c/w ACS. CTA neg for PE. Trial mucinex. 8. Left foot wound: Appears to be healing well. No signs of active infection. - PT/OT 9. Weight loss: Related to poorly controlled diabetes - Dietary consult VTE ppx: LMWH Diet: carb controlled Dispo: Switch to inpatient for ongoing blood glucose control Subjective: Very fatigued and tired. Tearful. No fevers. Objective: Vital Signs Temp Pulse Resp BP Pulse Ox 36.9 C 84 16 115/70 95 09/29/18 07:38 09/29/18 07:38 09/29/18 07:38 09/29/18 07:38 09/29/18 07:38 Laboratory Results 09/29/18 03:22 09/29/18 03:22 09/28/18 09/29/18 09/30/18 05:59 05:59 05:59 Intake Total 1999 120 Output Total 1000 850 Balance 1000 -730 - Physical Exam Constitutional: no apparent distress, unkempt Eyes: PERRL, anicteric sclera, EOMI Ears, Nose, Mouth, Throat: moist mucous membranes, hearing normal, ears appear normal, no oral mucosal ulcers Cardiovascular: regular rate and rhythym, no murmur, rub, or gallop, No edema Respiratory: no respiratory distress, no rales or rhonchi, clear to auscultation Gastrointestinal: normoactive bowel sounds, soft, non-tender abdomen, no palpable masses Genitourinary: no bladder fullness, no bladder tenderness, no renal bruits Skin: abrasion, other (multiple abrasions and open wounds on hands none of which look infected; area of erythema on right thigh; heel wound healing well) Musculoskeletal: full muscle strength, no muscle tenderness, normal joint ROM Neurologic: AAOx3 Psychiatric: interacting appropriately ICD10 Worksheet Patient Problems: Problems Problem Status Onset Hyperglycemia Acute Hyponatremia Acute Cellulitis Acute Diabetic foot infection Acute Leukocytosis Acute Pseudomonas infection Acute
--- NOTE | 2018-09-29 12:07 | ASMTCMCOM ---
CM Note CM Note Notes: Pts case discussed in treatment rounds. Pt is a 47 y/o man admitted for hyperglycemia, hyponatremia and dehydration. Pt is currently getting iv fluids and doxy. Dr. Da Silva may increase his insulin. Pt is homeless and well known to [facility]. Pt has a hx of leaving AMA. Pt is non compliant w/ his diabetes. CM made pt an appointment at [facility] (see appointment below). CM inputted info into pts chart. CM is happy to make a reservation for pt at the [facility]. CM to follow for needs. PADMA [place] (purple pod) 10/04/18 at 10:25AM [address] [place] [address] [phone] Date Signed: 09/29/2018 12:07 PM Electronically Signed By:GIRMA Kemp
[2018-09-29] MEDS: guaiFENesin 600 MG TAB.ER PO SCH ×2 (13:26→20:49)
[2018-09-29] MEDS: NICOTINE 14 MG/24 HR PATCH TD SCH (20:49)
[2018-09-30 07:51] VITALS: BP 108/77
[2018-09-30] MEDS: DOXYCYCLINE HYCLATE 100 MG CAP/TAB PO SCH (07:55)
[2018-09-30] MEDS: guaiFENesin 600 MG TAB.ER PO SCH (07:55)
[2018-09-30] MEDS: INSULIN LISPRO 100 UNIT/ML SC SCH (07:56)
[2018-09-30] MEDS ORDERED: ENOXAPARIN 40 MG/0.4 ML SYR SC SCH (09:00)
--- NOTE | 2018-09-30 09:16 | PDMN ---
Medical Necessity Medical necessity: Pt meets IP criteria as of 09/29/2018 per and MCG M-130 ( diabetes); los > 2 mn for ongoing tx and management of hyperglycemia and hyponatremia in the setting of uncontrolled diabetes as well as foot wound; requiring BGL control, medication management, PT/OT, and serial labs; Comorbid homelessness and hx of DVT/PE.
[2018-09-30] MEDS ORDERED: INSULIN GLARGINE 100 UNITS/ML UNIT SC SCH (10:29)
[2018-09-30] MEDS ORDERED: D50W 25 GM/50 ML SYR IVP PRN (10:29)
[2018-09-30] MEDS ORDERED: INSULIN LISPRO 100 UNIT/ML SC SCH (12:00)
--- NOTE | 2018-09-30 13:38 | PDDCSUM ---
Discharge Summary Discharge Summary: Date of Admission: 09/28/2018 Date of Discharge: 09/30/2018 Studies: 1. CTA chest Discharge Diagnoses: 1. Severe hyperglycemia 2. Poorly controlled diabetes with medication non-adherence 3. Pseudohyponatremia 4. Right thigh folliculitis 5. Urinary frequency 2/2 hyperglycemia 6. H/o diabetic left foot wound 7. H/o DVT/PE not on anticoagulation 8. Tobacco use Brief Hospital Course: 47yo homeless M with diabetes complicated by recent foot wound, history of PE/ DVT who has not been taking any medications presented with generalized weakness and increased urinary frequency found to be severely hyperglycemic. He had not been taking any insulin for several months. His A1c was undetectably high (>16.9 %). He was not in DKA or HHS. He was hydrated and started on subcutaneous insulin. Given his non-compliance with meds, he was discharged on glargine 25 units only and no short acting insulin. He was prescribed supplies to check his blood sugars. His insulin regimen will need to be titrated as an outpatient and he has an appointment set up in [facility] in 4 days. He was also treated for an infected appearing hair follicle on his right thigh. He has a history of MRSA so was treated with doxycycline. He did not have signs of systemic infection. Medications: Please refer to EMR. I sent prescriptions for the following to his pharmacy: 1. Doxycycline 100mg BID #10 2. Glargine pen. 25 units QHS 3. Insulin supplies (test strips, lancets, glucometer) Follow Up Plan: 1. Case management set up appointment at [facility] on 10/04 Physical Exam: Vitals reviewed, stable. Alert and oriented, rrr without m/r/g, lungs clear, abdomen soft and nt, no edema, abrasions on bilateral hands and legs, small area of erythema on right thigh with minimal induration.
--- NOTE | 2018-09-30 14:00 | ASMTLACE ---
LACE Length of stay for Answers: 2 days current admission Acuity / Level of Answers: Yes Care: Did the patient have an inpatient admission? Comorbidities - select Answers: Diabetes (uncontrolled or all that apply controlled) Other Notes: [facility] # of Emergency department Answers: 5-8 visits in the last 6 months Social determinants Answers: Homelessness (street, long term) Score: 14 Date Signed: 09/30/2018 02:00 PM Electronically Signed By:GIRMA Kemp
--- NOTE | 2018-09-30 14:08 | ASMTCMCOM ---
CM Note CM Note Notes: Pts case discussed in tx rounds. Pt is being d/c'd today. CM reserved a long term bed for pt and provided him with a bus pass. [facility] in addition to leaving a message for [place]. CM provided pt w/ his appointment to [facility] for Thursday. PT/OT both cleared pt without any needs. CM available for changes. Plan: Independent Date Signed: 09/30/2018 02:08 PM Electronically Signed By:GIRMA Kemp
== END 2018-09-30 14:40 | disposition home or self-care (01) | DRG 420 ==
LOC: INTOOBSV 18:28 → F2W 20:22 → OBSVTOIN 09-29 14:30
PROVIDERS: ADMIT Family Medicine; ATTEND Family Medicine
DX: E11.65 Type 2 diabetes mellitus with hyperglycemia (principal); E87.1 Hypo-osmolality and hyponatremia; T38.3X6A Underdosing of insulin and oral hypoglycemic [antidiabetic] drugs, initial encounter; E86.0 Dehydration; L73.9 Follicular disorder, unspecified; R35.0 Frequency of micturition; Z72.0 Tobacco use; Z79.01 Long term (current) use of anticoagulants; Z86.711 Personal history of pulmonary embolism; Z86.718 Personal history of other venous thrombosis and embolism; Z59.0 Homelessness; Z86.14 Personal history of Methicillin resistant Staphylococcus aureus infection
CPT/HCPCS: 82435-PO; 82565-PO; 82947-PO; 84132-PO; 84295-PO; 84520-PO; 85014-ER; 97161-GP; 97166-GO; G0378; J1650; J1815; Q9967

== ENCOUNTER 2018-11-23 18:47 | Inpatient (IN) | payer MEDICAID ==
[2018-11-23] MEDS ORDERED: NS 1,000 ML IV ONE (19:19)
--- NOTE | 2018-11-23 19:20 | EDPHY ---
H & P Stated Complaint: c/o cough/fever/dizziness x 3 days, also thinks he has an infx in R 1st toe Time Seen by Provider: 11/23/18 19:06 HPI/ROS: CHIEF COMPLAINT: Toe infection HISTORY OF PRESENT ILLNESS: Patient is a 47-year-old homeless alcoholic poorly- controlled diabetic who comes to the emergency department complaining of chronic wound and pain to his right great toe. He was admitted in August for DKA and was receiving wound care at the time. He states that he has not been doing his own wound care since then. It is foul smelling and has purulent discharge. Minimal with surrounding erythema. No visible bone. No bleeding. He states that his sugars have also been very high. Severity: Severe Modifying factors: None REVIEW OF SYSTEMS: Constitutional: denies: chills, fever, recent illness, recent injury EENTM: denies: blurred vision, double vision, nose congestion Respiratory: denies: cough, shortness of breath Cardiac: denies: chest pain, irregular heart rate, lightheadedness, palpitations Gastrointestinal/Abdominal: denies: abdominal pain, diarrhea, nausea, vomiting, blood streaked stools Genitourinary: denies: dysuria, frequency, hematuria, pain Musculoskeletal: denies: joint pain, muscle pain Skin: See HPI Neurological: denies: headache, numbness, paresthesia, tingling, dizziness, weakness Hematologic/Lymphatic: denies: blood clots, easy bleeding, easy bruising Immunologic/allergic: denies: HIV/AIDS, transplant 10 systems reviewed and negative except as noted EXAM: GENERAL: Foul-smelling, moderate distress, tachycardic HEAD: Atraumatic, normocephalic. EYES: Pupils equal round and reactive to light, extraocular movements intact, sclera anicteric, conjunctiva are normal. ENT: TMs normal, nares patent, oropharynx clear without exudates. Moist mucous membranes. NECK: Normal range of motion, supple without lymphadenopathy or JVD. LUNGS: Breath sounds clear to auscultation bilaterally and equal. No wheezes rales or rhonchi. HEART: Tachycardic, Regular rate and rhythm without murmurs, rubs or gallops. ABDOMEN: Soft, nontender, normoactive bowel sounds. No guarding, no rebound. No masses appreciated. BACK: No CVA tenderness, no spinal tenderness, step-offs or deformities EXTREMITIES: Normal range of motion, no pitting or edema. No clubbing or cyanosis. NEUROLOGICAL: Cranial nerves II through XII grossly intact. Normal speech, normal gait. 5/5 strength, normal movement in all extremities, normal sensation , normal reflexes PSYCH: Normal mood, normal affect. SKIN: Patient has multiple wounds of blisters to his toes. He is primarily complaining about his right great toe which has an ulcer to of wound 2 x 3 cm to the palm or/medial side. No bleeding. Foul smelling. Mild purulence. No significant surrounding erythema. Blanched. Source: Patient Exam Limitations: No limitations - Personal History Tetanus Vaccine Date: 2015 - Medical/Surgical History Hx Asthma: No Hx Chronic Respiratory Disease: No Hx Diabetes: Yes Hx Cardiac Disease: No Hx Renal Disease: No Hx Cirrhosis: No Hx Alcoholism: No Hx HIV/AIDS: No Hx Splenectomy or Spleen Trauma: No Other PMH: DM (noncompliant), PE, GREEN FILL FILTER LIKE IVC, L FOOT SX, right foot wound, factor 5 deficiency - Family History Significant Family History: No pertinent family hx - Social History Smoking Status: Heavy smoker Alcohol Use: Heavy Drug Use: Marijuana Constitutional: Initial Vital Signs Temperature (C) 37.6 C 11/23/18 18:50 Heart Rate 122 H 11/23/18 18:50 Respiratory Rate 18 11/23/18 18:50 Blood Pressure 126/81 H 11/23/18 18:50 O2 Sat (%) 91 L 11/23/18 18:50 O2 Delivery Mode Room Air Allergies/Adverse Reactions: No Known Allergies Allergy (Verified 11/23/18 18:55) Home Medications: Medication Instructions Recorded Insulin Glargine [Lantus] 25 unit SC 11/23/18 Medical Decision Making ED Course/Re-evaluation: Patient is hyperglycemic but not in DKA. Will order insulin and continue fluids and will supplement with potassium. Antibiotics have been hung. Will admit to the medical service. 8:40 p.m. Discussed the case with Dr. Rogers who will admit. Differential Diagnosis: Partial list of the Differential diagnosis considered include but were not limited to; sepsis, DKA, diabetic infection, hyperglycemia, pseudohyponatremia and although unlikely based on the history and physical exam, I also considered ischemic limb, abscess. Critical Care Time: Critical care time spent by Dr. Erica ernst exclusive with this patient was 35 minutes, exclusive of the PA time exclusive of procedures. The organ system that was at risk was cardiovascular and I gave medications, consultation and admission to prevent worsening of the patient's condition - Data Points Laboratory Results: Laboratory Results 11/23/18 19:20 11/23/18 19:20 Medications Given: Enoxaparin Sodium (Lovenox) 40 mg SC DAILY [facility] Stop: 05/23/19 08:59 Last Admin: 11/24/18 09:10 Dose: 40 mg Vancomycin/Sodium Chloride (Vancomycin 1 Gm (Premix)) 250 mls @ 250 mls/hr IV Q12H MISHA PRN Reason: Protocol Stop: 12/23/18 21:29 Last Admin: 11/24/18 09:09 Dose: 250 mls Piperacillin/Tazobactam/Dextrose (Zosyn 3.375 Gm (Premix)) 50 mls @ 100 mls/hr IV Q6HRS MISHA PRN Reason: Protocol Stop: 12/24/18 00:00 Last Admin: 11/24/18 11:33 Dose: 50 mls Sodium Chloride (Ns) 1,000 mls @ 200 mls/hr IV CONT MISHA Stop: 11/25/18 02:29 Last Admin: 11/24/18 07:47 Dose: 1,000 mls Insulin Glargine (Lantus Syringe) 25 units SC HS MISHA Stop: 05/22/19 23:14 Last Admin: 11/24/18 00:16 Dose: 25 units Insulin Human Lispro (Humalog Lispro) 0 unit SC TIDMEAL MISHA PRN Reason: Protocol Stop: 05/23/19 07:59 Last Admin: 11/24/18 11:40 Dose: 4 units Nicotine (Nicoderm Cq) 21 mg TD DAILY MISHA Stop: 05/23/19 10:14 Last Admin: 11/24/18 11:25 Dose: Not Given Oxycodone HCl (Oxycodone Ir) 5 - 10 mg PO Q3HRS PRN PRN Reason: Pain, Severe Able to Take PO Stop: 12/03/18 21:28 Last Admin: 11/24/18 14:14 Dose: 5 mg Discontinued Medications Hydrocodone Bitart/Acetaminophen ([place] 5/325) 1 - 2 tab PO Q4HRS PRN PRN Reason: Pain, Moderate Able to Take PO Stop: 12/03/18 21:28 Last Admin: 11/23/18 22:15 Dose: 2 tab Diazepam (Valium) 5 mg PO ONCE ONE Stop: 11/24/18 15:16 Last Admin: 11/24/18 16:04 Dose: 5 mg Sodium Chloride (Ns) 1,000 mls @ 0 mls/hr IV EDNOW ONE; Wide Open PRN Reason: Protocol Stop: 11/23/18 19:20 Last Admin: 11/23/18 19:33 Dose: 1,000 mls Ampicillin Sodium/Sulbactam (Sodium 3 gm/ Sodium Chloride) 100 mls @ 200 mls/ hr IV EDNOW ONE PRN Reason: Protocol Stop: 11/23/18 20:14 Last Admin: 11/23/18 19:52 Dose: 100 mls Sodium Chloride (Ns) 1,000 mls @ 1,000 mls/hr IV EDNOW ONE PRN Reason: Protocol Stop: 11/23/18 21:27 Last Admin: 11/23/18 20:46 Dose: 1,000 mls Insulin Human Regular 100 unit / Miscellaneous Medication 1 ea/ Sodium Chloride 101 mls @ 0 mls/hr IV EDNOW ONE; Per Protocol PRN Reason: Protocol Stop: 11/23/18 20:29 Last Admin: 11/23/18 21:07 Dose: Not Given Potassium Chloride (Potassium Cl 10 Meq (Premix)) 100 mls @ 200 mls/hr IV Q30M MISHA Stop: 11/23/18 21:29 Last Admin: 11/23/18 20:44 Dose: Not Given Potassium Chloride (Potassium Cl 10 Meq (Premix)) 100 mls @ 100 mls/hr IV Q1H MISHA Stop: 11/23/18 22:59 Last Admin: 11/23/18 22:08 Dose: 100 mls Insulin Human Regular (Humulin R) 10 unit IVP EDNOW ONE Stop: 11/23/18 20:33 Last Admin: 11/23/18 20:46 Dose: 10 unit Departure - Departure Disposition: [facility] Acute Clinical Impression: Hyperglycemia, Diabetic foot infection Condition: Critical
[2018-11-23 19:34] LABS: PLATELET COUNT 276 10^3/uL (150-400)
[2018-11-23] MEDS ORDERED: AMPICILLIN/SULBACTAM 3 GM in NS 100 ML IV ONE (19:45)
[2018-11-23 20:00] LABS: INR 1.08 (0.83-1.16); PROTIME(PATIENT) 13.6 SEC (12.0-15.0)
[2018-11-23] MEDS ORDERED: INSULIN REGULAR HUMAN 100 UNIT, COSIGN. REQUIRED 1 EA in NS 100 ML IV ONE (20:28)
[2018-11-23] MEDS ORDERED: INSULIN REGULAR HUMAN 100 UNIT/ML UNIT IVP ONE (20:32)
[2018-11-23] MEDS: POTASSIUM Cl (KCl) 100 ML IV SCH ×4 (20:43→22:08)
[2018-11-23] MEDS: NS 1,000 ML IV ONE ×2 (20:46→20:54)
[2018-11-23] MEDS ORDERED: D50W 25 GM/50 ML SYR IVP PRN (21:23)
[2018-11-23] MEDS ORDERED: ACETAMINOPHEN 325 MG TAB PO PRN (21:29)
[2018-11-23] MEDS ORDERED: ONDANSETRON 4 MG/2 ML VIAL IVP PRN (21:29)
[2018-11-23] MEDS ORDERED: ONDANSETRON DISINTEGRATING 4 MG TAB PO PRN (21:29)
[2018-11-23] MEDS ORDERED: PROMETHAZINE HCL 25 MG/ML INJ IVP PRN (21:29)
[2018-11-23] MEDS ORDERED: HYDROCODONE/APAP 5/325 TAB PO PRN (21:29)
[2018-11-23] MEDS ORDERED: INSULIN GLARGINE 100 UNITS/ML UNIT SC SCH (21:30)
--- NOTE | 2018-11-23 22:05 | GHP ---
[f rep st] HISTORY AND PHYSICAL DATE OF ADMISSION: 11/23/2018 Mr. Venegas is a pleasant 47-year-old gentleman with a history of type 1 diabetes with poor control and homelessness who presents to the hospital [facility] with chronic wound and pain to his right great toe. Seen here in August for DKA. Was getting wound care at that time. He has not been doing wound ca re since. He notes a foul smell and goopy discharge. He has not had fever or chills. He said he olivas s some pain in his groin. He has not seen red streaks up his legs. Physical exam makes it evident t hat there is not ideal self-care. He does not drink alcohol. He does have a history of leaving [place] [facility]. REVIEW OF SYSTEMS: Complete 10-point review of systems conducted, negative except as noted in the HP I. PAST MEDICAL HISTORY: 1. Diabetic foot ulcer. 2. History of Factor V Leiden. 3. History of MRSA and Pseudomonas from foot swab. 4. He has a history of an IVC filter placed. SOCIAL HISTORY: He smokes cigarettes. No alcohol. No drugs. Currently homeless, originally from [facility]. FAMILY HISTORY: Notable for Factor V Leiden. PHYSICAL EXAMINATION: PRESENTING VITALS: Temperature 39, blood pressure 128/77, pulse 107, breathin g 24 times a minute, 92% on room air. GENERAL: In no acute distress. HEENT: Sclerae anicteric. O ropharynx clear. Mucous membranes moist. NECK: Supple without lymphadenopathy or JVD. LUNGS: Roger ar to auscultation bilaterally. HEART: S1, S2. ABDOMEN: Soft, nontender, nondistended. EXTREMITI ES: His right lower extremity shows a diabetic foot ulcer. He has long nails that are not well kept and have a lot of dirt around them. This ulcer is foul smelling. There is evidence of loss of toen ail on his left great toe. There is no lymphangitic streaking. I do not appreciate inguinal lymphad enopathy. SKIN: Without rash. NEUROLOGIC: Nonfocal. White count 16, hematocrit 34, platelets are 276,000, coags are normal. The pH is 7.5. Venous lacta te is 1.2. Sodium 124, potassium 4.2, chloride 88, bicarb 25, BUN 19, creatinine 1.3, that is above his baseline. Glucose 618, calcium 8. LFTs normal. Alkaline phosphatase slightly elevated at 149. I have discussed the case with Dr. Rafael Maldonado. ASSESSMENT AND PLAN: A 47-year-old gentleman with likely infected diabetic foot ulcer. He has also been coughing up sputum. 1. Diabetic foot ulcer. This is longstanding and I have a concern for a deep space infection and ev en bone infection. I have ordered foot films to start with. In the last year or so he has had a jessica t swab showing methicillin-resistant Staphylococcus aureus and Pseudomonas, so I started him on vanco mycin and Zosyn. An infectious disease consult may be appropriate in the morning. I have not ordere d it. 2. Sputum. We will check a chest x-ray. Pneumonia should presumably be covered by vancomycin and Z osyn. If it is a true infiltrate, it would be worth considering the addition of atypical coverage. 3. Hyperglycemia. This is without diabetic ketoacidosis. We will resume his Lantus of 25, and I pu t him on a high-dose sliding scale. 4. Tachycardia secondary to volume depletion and infection. Prophylaxis, low-molecular heparin elvis cated. DISPOSITION: Inpatient status. /[id number]/MODL
[2018-11-23] MEDS ORDERED: VANCOMYCIN 1 GM/NS 250 ML BAG IV ONE (22:21)
[2018-11-23] MEDS: VANCOMYCIN HCL/NORMAL SALINE 250 ML IV SCH (22:25)
[2018-11-24] MEDS: PIPERACILLIN/TAZO 3.375 GM/DEX 50 ML IV SCH ×4 (00:16→18:32)
[2018-11-24] MEDS: NS 1,000 ML IV SCH ×2 (00:16→07:47)
[2018-11-24] MEDS: INSULIN GLARGINE 100 UNITS/ML UNIT SC SCH ×2 (00:16→20:41)
[2018-11-24] MEDS: oxyCODONE IR 5 MG TAB PO PRN ×4 (07:44→19:10)
[2018-11-24] MEDS: INSULIN LISPRO 100 UNIT/ML SC SCH ×3 (07:53→18:32)
[2018-11-24] MEDS: VANCOMYCIN HCL/NORMAL SALINE 250 ML IV SCH ×2 (09:09→20:33)
[2018-11-24] MEDS: ENOXAPARIN 40 MG/0.4 ML SYR SC SCH (09:10)
[2018-11-24] MEDS: NICOTINE 21 MG/24 HR PATCH TD SCH (11:25)
--- NOTE | 2018-11-24 12:15 | PDMN ---
Medical Necessity Medical necessity: Pt meets IP criteria per MD & MCG MG-SIC Systemic or Infectious Condition; est los >2 mn for eval/tx of longstanding infected diabetic foot ulcer w/tachycardia & concern for deep space/bone infection, as well as probable pneumonia; admit for further workup/monitoring, IV abx & ID/ Wound Care consults; hx of leaving hospital AMA, poorly-controlled diabetes, homelessness, factor V leiden, IVC filter, MRSA & pseudomonas from foot swab; per H&P & order 11/23/18
--- NOTE | 2018-11-24 12:24 | WOCRNPDOC ---
REYNA Advanced Assessment Note - Skin Integrity Problem, Advanced Assess RIGHT GREAT TOE Dressing Type: Open to Air Exudate Amount: Scant Exudate Characteristic(s): Serous Integumentary Issue Intervention: Dressing Applied Ashly Wound Tissue: Calloused Wound Bed Color: [place], Yellow, White Wound Bed Constitution: Tendon (1-5 oclock linear, vertical) Site Measurement - Head-to-Toe Length X Width X Depth (cm): 2.5x1.8x0.4 Skin Integrity Problem Comment: Patient with pungent feet, overgrown nails with fungal infection and history of frostbite. Discussed proper footwear and footcare with patient. Diabetic ulcer present on plantar surface of Right great toe. Cleaned with ns and gauze. Tendon noted running vertically midline 1-5 oclock. Both feet and all toes also cleaned with moist washcloth and foam cleanser. Wet to dry dressing placed on Right great toe diabetic ulcer to keep moist until dressing apply by RN. Will initiate moist wound healing with antimicrobial foam. KVNG Guido and Maggie NUNEZ in room for care. Discussed podiatry needs with Martin Carroll. Patient should follow up outpatient podiatry care. Right lateral malleolus noted to have healed wound. Wound care will follow. Left Medial Heel Dressing Type: Open to Air Ashly Wound Tissue: Crusted, Calloused Wound Bed Constitution: Healed
--- NOTE | 2018-11-24 12:58 | ASMTCMCOM ---
CM Note CM Note Notes: HOMELESS RN OUTREACH NOTE: Patient is assigned to [facility]; however, he is currently banned from their services d/t violence and threats to staff. Regarding primary care, I spoke gerardo Leonard RN at [facility] who reports that patient has not established care with the clinic. He will need a PCP immediately upon discharge. Date Signed: 11/24/2018 12:57 PM Electronically Signed By:Latasha George RN
--- NOTE | 2018-11-24 13:02 | HOSPPROG ---
Hospitalist Progress Note Assessment/Plan: DIAGNOSES: * Acute community-acquired pneumonia with dense infiltrate in right lung * Acute hypoxemic respiratory failure * Acute COPD exacerbation * Diabetic foot infection with ulcer on plantar aspect right 1st toe * Acute sepsis with tachycardia tachypnea high white blood cell count fever; sepsis resolved at this time * Foot x-rays show an area of demineralization of the lateral aspect base of the 1st metatarsal on right foot; ? chronicity or cause * Type 1 diabetes poorly controlled the outpatient setting; sugars much improved here so far * History of factor 5 Leiden and DVTs, IVC to filter, high inpatient DVT risk * Ongoing tobacco abuse * Homelessness PLANS: * Continue current antibiotics which will cover for polymicrobial foot infection as well as community-acquired pneumonia * Follow cultures closely * Will get MRI of foot * He may need debridement of the soft tissue of the 1st toe, and if MRI shows osteo would probably need amputation * DVT prophylaxis * Bronchodilators steroid * Follow sugars closely and treat as indicated Seen by me today on hospitals rounds as well as multidisciplinary rounds Reviewed with Dr. Ragsdale SUBJECTIVE: Complains of shortness of breath and right chest discomfort OBJECTIVE Vitals reviewed: Fever through the night, normal temperature so far this morning; blood pressure pulse and respirations have normalized Oxygen: Still requiring 2-3 L nasal cannula oxygen Colorer, my review: Exam: alert oriented skin warm dry color ok resps mildly labored at rest on oxygen lungs severely diminished BSs heart regular abd soft nondistended nontender, bowel sounds present limbs decreased sensation at both feet; there is an open deep ulcer on the plantar aspect of the right 1st toe with some surrounding tissue that has very poor circulation and looks possibly non vital but not overtly necrotic, and this whole area of the toe is very tender. The toenails are severely dystrophic diffusely on both feet iv site ok I reviewed his foot x-ray images, and there is some demineralization at the base of the right 1st metatarsal of uncertain chronicity or etiology. I do not see any definite osteomyelitis of the 1st toe or he has his ulcer Objective: Vital Signs Temp Pulse Resp BP Pulse Ox 36.9 C 85 10 L 125/76 H 97 11/24/18 11:31 11/24/18 11:31 11/24/18 11:31 11/24/18 11:31 11/24/18 11:31 Laboratory Results 11/23/18 21:37 11/23/18 11/24/18 11/25/18 06:59 06:59 06:59 Intake Total 3600 900 Output Total 1400 Balance 2200 900 PT 13.6 SEC (12.0-15.0) 11/23/18 19:20 INR 1.08 (0.83-1.16) 11/23/18 19:20 ICD10 Worksheet Patient Problems: Problems Problem Status Onset Diabetic foot infection Acute Hyperglycemia Acute Cellulitis Acute Hyponatremia Acute Leukocytosis Acute Pseudomonas infection Acute
--- NOTE | 2018-11-24 14:57 | GCON ---
[f rep st] CONSULTATION PULMONARY CRITICAL CARE CONSULTATION DATE OF CONSULTATION: 11/24/2018 REASON FOR CONSULTATION: Diabetic foot infection, right middle lobe pneumonia in a patient with COPD . HISTORY: The patient is a 47-year-old homeless gentleman who presented to the emergency department w ith foot pain and infection. He has a history of insulin-dependent diabetes and uses long-acting ins ulin. He also has a history of COPD/emphysema well documented on previous hospitalization. He is ho meless, does not drink alcohol. After evaluation in the emergency department, he was admitted to the intensive care unit on step-down status. He was given vancomycin and Zosyn. PAST MEDICAL HISTORY: Remarkable for tobacco abuse, COPD and emphysema, history of factor V Leiden d eficiency, insulin-dependent diabetes with previously treated diabetic foot ulceration that was posit trey for methicillin-resistant Staphylococcus aureus and Pseudomonas. He has had thromboembolic disea se apparently in the past and had an inferior vena caval filter placed. This may have been removed? SOCIAL HISTORY: Homeless, does not use the care home secondary to anxiety around other individuals. Burton cameron smokes about 1/2 pack of cigarettes per day. He denies alcohol. He uses marijuana, no hard drugs. He is from [place]. FAMILY HISTORY: Factor V Leiden deficiency. REVIEW OF SYSTEMS: A 10-point review of systems is negative except as noted in the HPI and past medi chiquita history. In addition, he does complain of some anterior right-sided chest pain with deep breaths . He denies cough or mucus at this time. He has had some recent chills. PHYSICAL EXAMINATION: GENERAL: Remarkable for a gentleman who is lying comfortably in bed. VITAL S IGNS: Blood pressure is 125/76, heart rate 85 with sinus rhythm on the monitor. Respiratory rate is 14. On room air, saturations currently are 97%. He has no respiratory difficulties. HEENT: Unrem arkable for lymphadenopathy or thyromegaly. There is no pharyngitis. Pupils are equal. There is no jugular venous distention. CHEST: Reveals decreased breath sounds bilaterally with a prolonged exp iratory phase. There are scattered nonspecific rales, primarily at the bases. There are no wheezes, no rhonchi. No consolidative changes are heard. There is no pleural rub. HEART: Regular in rate and rhythm. There is a soft systolic murmur, no gallop. ABDOMEN: Soft and nontender. Organomegaly cannot be appreciated. Bowel sounds are present. There is no Real catheter. EXTREMITIES: Remark able for primarily right lower extremity ulceration, primarily involving the great toe. There are mo re minimal changes on the left. There is little in the way of edema. There are no obvious cords. N EUROLOGIC: Examination is nonfocal. Mentation is intact. DATABASE: Foot x-ray shows erosion of the 1st metatarsal on the right and some soft-tissue swelling over the great toe on the right. Chest x-ray shows right middle lobe and relatively dense infiltrate. Laboratory: White blood cell count is 15,500, hematocrit approximately 35. Platelets are 276,000. PT and PTT were normal on admission. Venous lactate was 1.2. Sodium is 133, potassium 3.6, glucose is between approximately 190 and 340. ASSESSMENT: 1. Diabetic foot ulceration. This involves the right lower extremity, especially the right great to e. Previously, his ulcerations were primarily on the left during admissions in March and May of 2018. He had several admissions during this time secondary to his left foot infection/ulcerations , but left against medical advice on each occasion, then came back a day or two later. He received U nasyn in the emergency department, is currently on vancomycin and piperacillin. Wound Care will see the patient. Infectious Disease will be consulted. 2. Right lower lobe pneumonia. This likely represents a community-acquired pneumonia. Aspiration c annot be absolutely excluded but there is no history for this. He is on appropriate antibiotics that will cover him broad-spectrum for infection. He is on bronchopulmonary therapies as well. 3. Chronic obstructive pulmonary disease/emphysema. Secondary to tobacco abuse which is ongoing. Burton cameron is on bronchodilator therapy, as well as steroids. 4. Insulin-dependent diabetes. This is generally poorly controlled secondary to his homeless status . He does use long-acting insulin. He is treated with both long-acting and sliding scale insulin at this time. 5. Prophylaxis. He is on enoxaparin. Gastrointestinal prophylaxis is not needed as he is eating. 6. Metabolic: Hyponatremia is present with a sodium of 133. This will be followed. Intravenous sa line will be given. Also, potassium is slightly low at 3.6. PLAN AND RECOMMENDATIONS: The patient will be kept in the intensive care unit on step-down status fo r now. Antibiotics will be continued. Wound Care and Infectious Disease will be involved. Insulin, both long-acting and sliding scale will be continued. Bronchodilator therapies and steroids will be continued as well. Chest x-ray will be followed. A sputum culture has been obtained. To better as sess osteomyelitis, an MRI of the right lower extremity has been ordered. Further plans and recommendations will be made based on his progress over the next 12-24 hours. /[id number]/MODL
--- NOTE | 2018-11-24 14:58 | ASMTCMCOM ---
CM Note CM Note Notes: Met with pt, he says that he has so much social anxiety that he doesn't like being around people and says that he drops more and more into cycle of homelessness. Pt reports he has been in and out of [facility] and does not want to go back to the nursing home. He said he may be willing to try [facility], but it is unknown if he is able to go there due to his agressive history at [facility]. Pt is interested in linkage at [facility] for mental health and substance abuse services. He also requested linkage at a PCP closer to [facility], as pt says that [place]". CM provided pt with clothing from the clothing closet. No therapies ordered at this time, pt has wounds on his feet; wound care following. Plan: TBD Date Signed: 11/24/2018 02:57 PM Electronically Signed By:GIRMA Delacruz
[2018-11-24] MEDS ORDERED: DIAZEPAM 5 MG TAB PO ONE (15:15)
[2018-11-24] MEDS ORDERED: GADOBUTROL 10 ML VIAL IVP ONE (17:22)
[2018-11-24] MEDS: IPRATROPIUM/ALBUTEROL 3 ML DEYVIAL IH SCH ×2 (17:35→19:49)
[2018-11-24] MEDS: predniSONE 20 MG TAB PO SCH (18:31)
[2018-11-24] MEDS ORDERED: INSULIN GLARGINE 25 UNIT SC SCH (21:00)
[2018-11-25] MEDS: PIPERACILLIN/TAZO 3.375 GM/DEX 50 ML IV SCH ×3 (00:29→11:39)
[2018-11-25] MEDS: oxyCODONE IR 5 MG TAB PO PRN ×4 (01:00→21:58)
[2018-11-25 05:27] LABS: PLATELET COUNT 236 10^3/uL (150-400)
[2018-11-25] MEDS: IPRATROPIUM/ALBUTEROL 3 ML DEYVIAL IH SCH ×3 (05:50→16:37)
[2018-11-25] MEDS: INSULIN LISPRO 100 UNIT/ML SC SCH ×3 (08:11→17:33)
[2018-11-25] MEDS: ENOXAPARIN 40 MG/0.4 ML SYR SC SCH (08:12)
[2018-11-25] MEDS: predniSONE 20 MG TAB PO SCH ×2 (08:12→17:33)
--- NOTE | 2018-11-25 08:44 | HOSPPROG ---
Hospitalist Progress Note Assessment/Plan: DIAGNOSES: * Acute community-acquired pneumonia with dense infiltrate in right lung: H flu in sputum (sens pending) and rhinovirus in nasal swab * Acute hypoxemic respiratory failure * Acute COPD exacerbation * Diabetic foot infection with ulcer on plantar aspect right 1st toe * Acute sepsis with tachycardia tachypnea high white blood cell count fever; sepsis resolved at this time * MRI with no evidence of abscess or osteomyelitis * Type 1 diabetes poorly controlled the outpatient setting; -sugars a bit higher today and more variable * Normocytic anemia, likely due to chronic inflammation and nutritional issues * History of factor 5 Leiden and DVTs, IVC to filter, high inpatient DVT risk * Ongoing tobacco abuse * Homelessness PLANS: * Continue current antibiotics which will cover for polymicrobial foot infection as well as community-acquired pneumonia * Follow cultures closely * Wound care for foot * He may need debridement of the soft tissue of the 1st toe * DVT prophylaxis * Bronchodilators steroid * Follow sugars closely; needs increase in insulin at this time, also will change to a diabetic diet and see if he tolerates that SUBJECTIVE: Complains of shortness of breath and right chest discomfort OBJECTIVE Vitals reviewed: Fever through the night, normal temperature so far this morning; blood pressure pulse and respirations have normalized Oxygen: Still requiring 2-3 L nasal cannula oxygen Rn Ed, my review: Exam: alert oriented skin warm dry color ok resps mildly labored at rest on oxygen lungs severely diminished BSs heart regular abd soft nondistended nontender, bowel sounds present limbs decreased sensation at both feet; there is an open deep ulcer on the plantar aspect of the right 1st toe with some surrounding tissue that has very poor circulation and looks possibly non vital but not overtly necrotic, and this whole area of the toe is very tender. The toenails are severely dystrophic diffusely on both feet iv site ok I reviewed MRI images of his foot - there is no abscess, osteomyelitis, or other deep tissue infection seen. Lab data; renal fxn better sugars quite variable wbc normal now, Hg down at 10.6 Objective: Vital Signs Temp Pulse Resp BP Pulse Ox 36.4 C 62 18 121/77 H 95 11/25/18 07:41 11/25/18 07:41 11/25/18 07:41 11/25/18 07:41 11/25/18 07:41 Microbiology 11/24/18 10:30 - Final Sputum, Induced/Suctioned Laboratory Results 11/25/18 05:10 11/25/18 05:10 11/24/18 11/25/18 11/26/18 06:59 06:59 06:59 Intake Total 3600 3532 Output Total 1400 1800 400 Balance 2200 1732 -400 PT 13.6 SEC (12.0-15.0) 11/23/18 19:20 INR 1.08 (0.83-1.16) 11/23/18 19:20 - Time Spent With Patient Time Spent with Patient: greater than 35 minutes Time Spent with Patient: Greater than 35 minutes spent on this patients care, greater than 50% of time spent counseling, educating, and coordinating care regarding the above mentioned plan. ICD10 Worksheet Patient Problems: Problems Problem Status Onset Diabetic foot infection Acute Hyperglycemia Acute Cellulitis Acute Hyponatremia Acute Leukocytosis Acute Pseudomonas infection Acute
[2018-11-25] MEDS: NICOTINE 21 MG/24 HR PATCH TD SCH (08:54)
[2018-11-25] MEDS: VANCOMYCIN HCL/NORMAL SALINE 250 ML IV SCH ×2 (09:37→10:24)
[2018-11-25] MEDS: DOXYCYCLINE HYCLATE 100 MG CAP/TAB PO SCH ×2 (10:21→21:58)
--- NOTE | 2018-11-25 11:29 | GCON ---
[f rep st] CONSULTATION INFECTIOUS DISEASE CONSULTATION DATE OF CONSULTATION: 11/25/2018 REFERRING PHYSICIAN: Amaury Carroll MD REASON FOR CONSULTATION: Antibiotic management for pneumonia and possible diabetic foot infection, right great toe. HISTORY OF PRESENT ILLNESS: 47-year-old male with type 1 diabetes and homelessness, well known to the ID service, with a past history of left diabetic foot ulcer and abscess, with cultures positive for MRSA, now healed, who presents to the emergency room on November 23 with progressive coughing and shortness of breath and fever. The patient also describes right great toe pain x1 month, with an ulcer present x3 months. He denies any loss of consciousness. He does not drink any alcohol. He only smokes marijuana. In the emergency room, patient was found to have a temperature of 39 degrees C and an elevated white count, tachycardia but was not hypoxic. The patient was empirically started on Zosyn and IV vancomycin and since admission has not been febrile. In addition, his white count improved. The patient still describes persistent cough and malaise. He states that his right foot, great toe is persistently painful and swollen. He denies specific injury. REVIEW OF SYSTEMS: A complete 10-point review of systems was performed and is negative except as mentioned in the HPI. ALLERGIES: NKDA. MEDICATIONS: Vancomycin 1 g IV q.12, Zosyn 3.375 g IV q.6. He is also given prednisone. PAST MEDICAL HISTORY: Type 1 diabetes, Factor V Leiden deficiency, COPD, with ongoing tobacco use, left lower extremity diabetic foot ulcer, with culture from 05/05/2018 showing MRSA, Pseudomonas, and Prevotella. The patient had multiple debridements of his heel and wound VAC. Now it is completely healed. In light of history of Factor V Leiden and recurrent pulmonary emboli, patient had a CT angio in August 2018 that was negative for PEs. FAMILY HISTORY: Also positive for Factor V Leiden deficiency. SOCIAL HISTORY: Patient is originally from [place], came to [place] in 2016. He uses marijuana. No alcohol. No IV drugs. PHYSICAL EXAM: VITAL SIGNS: T-max 39 on admission, T-current is 36.4, saturation 95% on room air, blood pressure 121/77, respiratory rate 16. GENERAL : This is a pleasant male, lying flat in bed. No acute distress, speaking clearly and in complete sentences. HEENT: Fair dentition. No oral thrush. NECK: Supple. CARDIOVASCULAR: Regular rate. No murmur. CHEST: Prominent crackles right base that have a Velcro character. ABDOMEN: Soft, nontender. Extremities: The patient has clubbing of his upper extremities. His right great toe with a 1.5 cm ulceration. No palpable bone. No surrounding erythema. His right great toe has mild swelling and tenderness. He has 2+ dorsalis pedis pulses bilaterally. SKIN: Patient has extensive tattooing. No rash. LABORATORY: White count on admission 15, today is 8.1, hematocrit 32 today, platelets of 236, 76% neutrophils. Creatinine 0.7, AST 23, ALT 28. Blood cultures 11/23/2018 are no growth to date. Sputum culture from 11/24 showed mixed oral maxx. IMAGING: Chest x-ray was personally reviewed by me which showed dense right lower lobe consolidation. ASSESSMENT AND PLAN: This is a 47-year-old male with type 1 diabetes, poorly controlled, with multiple ID issues including past history of left lower extremity diabetic foot ulcer with methicillin-resistant Staphylococcus aureus, who presents with right lower lobe pneumonia. 1. Right lower lobe pneumonia. The patient has a significant past antibiotic exposure, therefore, may be at risk for more resistant organisms but still suspect most likely typical organisms such as H flu and pneumococcus. The patient is known to be colonized with MRSA. With underlying diabetes, it does put him at risk for pneumonia due to this pathogen. Would continue IV Zosyn for now at standard dosing as he has clinically improved. Would discontinue vancomycin. Would start on doxycycline which will provide MRSA coverage as well as atypical coverage. Would also rule out simultaneous viral infection, and respiratory PCR was ordered. 2. Right great toe infection. MRI was reviewed by me which basically shows soft tissue swelling consistent with cellulitis and a fracture distally, with expected bone marrow changes, no clear osteomyelitis. Would continue same antibiotics as described above for pneumonia. No active signs of cellulitis on exam today outside of some mild swelling which could be attributable to cellulitis. 3. Known methicillin-resistant Staphylococcus aureus colonization. Patient is on contact precautions. Thank you for this consultation. Will continue to see the patient on a daily basis. ADDENDUM 11/25/2018 Sputum culture now showing Haemophilus influenzae. Will discontinue Zosyn and start ceftriaxone. Will continue doxycycline for cellulitis of right great toe. Greater than 50 minutes spent on this patients care, greater than 50% of time spent counseling, educating, and coordinating care regarding the above mentioned plan. /[id number]/MODL SHANEL
[2018-11-25] MEDS ORDERED: INSULIN GLARGINE 100 UNITS/ML UNIT SC SCH (16:10)
[2018-11-25] MEDS: guaiFENesin 600 MG TAB.ER PO SCH (21:57)
[2018-11-26] MEDS: IPRATROPIUM/ALBUTEROL 3 ML DEYVIAL IH SCH ×5 (05:22→21:28)
[2018-11-26] MEDS: oxyCODONE IR 5 MG TAB PO PRN ×4 (07:23→22:19)
[2018-11-26] MEDS: guaiFENesin 600 MG TAB.ER PO SCH ×2 (08:05→22:18)
[2018-11-26] MEDS: predniSONE 20 MG TAB PO SCH ×2 (08:05→17:27)
[2018-11-26] MEDS: DOXYCYCLINE HYCLATE 100 MG CAP/TAB PO SCH ×2 (08:06→22:18)
[2018-11-26] MEDS: INSULIN LISPRO 100 UNIT/ML SC SCH ×3 (08:06→17:27)
[2018-11-26] MEDS: ENOXAPARIN 40 MG/0.4 ML SYR SC SCH (08:08)
[2018-11-26] MEDS: NICOTINE 21 MG/24 HR PATCH TD SCH (08:08)
--- NOTE | 2018-11-26 09:18 | PCMIDPN ---
Assessment/Plan: # H flu PNA/enterovirus UTI, feels more chest tightness today but no hypoxia, no fever, WBC normal yesterday --narrowed abx to ceftriaxone yesterday --Abx #4 of 7 today Ok to change to PO 3rd gen ceph to complete therapy (stop date 11/29/18) --droplet precautions --awaiting B lactamase testing for H flu --no pleural effusion by exam, defer to hospitalist if f/u CXR warranted # R great toe cellulitis with underlying fracture: minimal erythema remains --on Doxycycline with know h/o MRSA --doxycycline through 11/29 # COPD: patient claims that he was unaware of dx. Suspect chest tightness some due to COPD. Will change duonebs to scheduled during waking hours and albuterol PRN --rec dc tobacco Microbiology 11/25/18 11:20 Resp PCR: Human Rhinovirus/Enterovirus 11/24/18 10:30 Sputum, induced: Haemophilus Influenzae 11/23/18 19:30 Blood Cx (2) : NGTD HIV neg 05/2018 Subjective: patient c/o persistent R sided chest tightness Objective: Vital Signs Temp Pulse Resp BP Pulse Ox 36.4 C 55 L 16 134/84 H 95 11/26/18 07:35 11/26/18 07:35 11/26/18 07:35 11/26/18 07:35 11/26/18 07:35 Microbiology 11/25/18 11:20 Respiratory Panel (PCR) - Final Nasal, Sinus - Swab Human Rhinovirus/Enterovirus 11/24/18 10:30 - Final Sputum, Induced/Suctioned Laboratory Results 11/25/18 05:10 11/25/18 05:10 11/25/18 11/26/18 11/27/18 05:59 05:59 05:59 Intake Total 3532 550 Output Total 1800 2800 Balance 1732 -2250 - Physical Exam General Appearance: alert, no apparent distress, thin, non-toxic Respiratory: other (decreased bs throughout, no crackles detected today R base) , No accessory muscle use Cardiac/Chest: bradycardia Extremities: other (R great toe wound stable, no erythema, swelling much improved, less tenderness to palpation) Peripheral Pulses: 2+: dorsalis-pedis (R), dorsalis-pedis (L) Abdomen: non-tender Skin: warm/dry, No diaphoresis, No rash Neuro/Psych: alert, normal mood/affect, oriented x 3 - Time Spent With Patient Time Spent with Patient: greater than 35 minutes Time Spent with Patient: Greater than 35 minutes spent on this patients care, greater than 50% of time spent counseling, educating, and coordinating care regarding the above mentioned plan. ICD10 Worksheet Patient Problems: Problems Problem Status Onset Diabetic foot infection Acute Hyperglycemia Acute Cellulitis Acute Hyponatremia Acute Leukocytosis Acute Pseudomonas infection Acute
[2018-11-26] MEDS ORDERED: ALBUTEROL 3 ML DEYVIAL IH PRN (09:23)
--- NOTE | 2018-11-26 11:48 | HOSPPROG ---
Hospitalist Progress Note Assessment/Plan: DIAGNOSES: * Acute community-acquired pneumonia with dense infiltrate in right lung: H flu in sputum (sens pending) and rhinovirus in nasal swab * Acute hypoxemic respiratory failure * Acute COPD exacerbation * Diabetic foot infection with ulcer on plantar aspect right 1st toe * Acute sepsis with tachycardia tachypnea high white blood cell count fever; sepsis resolved at this time * MRI with no evidence of abscess or osteomyelitis * Type 1 diabetes poorly controlled the outpatient setting; -sugars a bit higher today and more variable * Normocytic anemia, likely due to chronic inflammation and nutritional issues * History of factor 5 Leiden and DVTs, IVC to filter, high inpatient DVT risk * Ongoing tobacco abuse * Homelessness PLANS: * Continue current antibiotics which will cover for polymicrobial foot infection as well as community-acquired pneumonia * Follow cultures closely * Wound care for foot * He may need debridement of the soft tissue of the 1st toe * DVT prophylaxis * Bronchodilators steroid * Follow sugars closely; needs increase in insulin at this time, also will change to a diabetic diet and see if he tolerates that SUBJECTIVE: Complains of shortness of breath and right chest discomfort OBJECTIVE Vitals reviewed: Fever through the night, normal temperature so far this morning; blood pressure pulse and respirations have normalized Oxygen: Still requiring 2-3 L nasal cannula oxygen Filing Clerk, my review: Exam: alert oriented skin warm dry color ok resps mildly labored at rest on oxygen lungs severely diminished BSs heart regular abd soft nondistended nontender, bowel sounds present limbs decreased sensation at both feet; there is an open deep ulcer on the plantar aspect of the right 1st toe with some surrounding tissue that has very poor circulation and looks possibly non vital but not overtly necrotic, and this whole area of the toe is very tender. The toenails are severely dystrophic diffusely on both feet iv site ok I reviewed MRI images of his foot - there is no abscess, osteomyelitis, or other deep tissue infection seen. Lab data; renal fxn better sugars quite variable wbc normal now, Hg down at 10.6 Objective: Vital Signs Temp Pulse Resp BP Pulse Ox 36.4 C 67 14 134/84 H 97 11/26/18 07:35 11/26/18 10:12 11/26/18 10:12 11/26/18 07:35 11/26/18 10:12 Microbiology 11/24/18 10:30 - Final Sputum, Induced/Suctioned 11/25/18 11:20 Respiratory Panel (PCR) - Final Nasal, Sinus - Swab Human Rhinovirus/Enterovirus Laboratory Results 11/25/18 05:10 11/25/18 05:10 11/25/18 11/26/18 11/27/18 06:59 06:59 06:59 Intake Total 3532 550 500 Output Total 1800 2800 1000 Balance 1732 -2250 -500 PT 13.6 SEC (12.0-15.0) 11/23/18 19:20 INR 1.08 (0.83-1.16) 11/23/18 19:20 ICD10 Worksheet Patient Problems: Problems Problem Status Onset Diabetic foot infection Acute Hyperglycemia Acute Cellulitis Acute Hyponatremia Acute Leukocytosis Acute Pseudomonas infection Acute
--- NOTE | 2018-11-26 16:54 | ASMTCMCOM ---
CM Note CM Note Notes: Met with pt, admitted for foot infection. Pt is a homeless gentleman, he has been through [facility] but does not want to stay at [facility]. He prefers to "sleep on sidewalk". Pt will dc independent when medically stable. CM available for any needs. DC Plan: Independent Date Signed: 11/26/2018 04:54 PM Electronically Signed By:Sandra Porras RN
[2018-11-26] MEDS: INSULIN GLARGINE 100 UNITS/ML UNIT SC SCH ×2 (22:19→22:45)
[2018-11-27] MEDS: INSULIN LISPRO 100 UNIT/ML SC SCH ×4 (08:01→17:55)
[2018-11-27] MEDS: IPRATROPIUM/ALBUTEROL 3 ML DEYVIAL IH SCH ×3 (08:40→22:03)
[2018-11-27] MEDS ORDERED: INSULIN GLARGINE 100 UNITS/ML UNIT SC SCH ×3 (09:15→12:43)
[2018-11-27] MEDS: predniSONE 20 MG TAB PO SCH ×2 (10:11→17:55)
[2018-11-27] MEDS: guaiFENesin 600 MG TAB.ER PO SCH ×2 (10:11→20:37)
[2018-11-27] MEDS: NICOTINE 21 MG/24 HR PATCH TD SCH (10:12)
[2018-11-27] MEDS: ENOXAPARIN 40 MG/0.4 ML SYR SC SCH (10:12)
[2018-11-27] MEDS: DOXYCYCLINE HYCLATE 100 MG CAP/TAB PO SCH ×2 (10:12→20:37)
--- NOTE | 2018-11-27 11:10 | HOSPPROG ---
Hospitalist Progress Note Assessment/Plan: 47-year-old homeless man admitted with increasing cough and shortness of breath. Evaluation has revealed acute infection with Haemophilus influenzae and rhino virus. # gram-negative pneumonia with Haemophilus influenzae and right lower lobe infiltrate. He also has evidence of rhino virus. * Continue appropriate antibiotics, appreciate infectious disease * Can likely transition to orals on discharge with 3rd generation # acute COPD exacerbation with acute hypoxemic respiratory failure. Oxygen saturations have improved however he continues to have cough and difficulty clearing secretions. * Continue nebulizers * Add Mucomyst nebulizer * Follow clinically * Steroids did cause significantly increased blood sugars. # poorly controlled diabetes with hyperglycemia * Increase Lantus to twice daily dosing * Will allow regular diet given patient's noncompliance as outpatient. And risk of patient leaving AMA # diabetic foot infection with ulcer on plantar aspect a right 1st toe. Complete treatment with doxycycline on November 29 * MRI with no evidence of abscess or osteomyelitis # history of factor 5 Leiden and DVTs, IVC filter placed high risk DVT will continue Lovenox # ongoing tobacco use # homelessness, patient threatening to leave AMA and less given a regular diet. # anemia, unclear etiology but no acute bleeding noted. I suspect a lot of this is nutritional and his illnesses will refer for outpatient evaluation follow-up Subjective: Patient new to me and chart reviewed. Main issue is having difficulty clearing his secretions. Breathing has improved. Objective: Vital Signs Temp Pulse Resp BP Pulse Ox 36.6 C 65 14 140/80 H 95 11/27/18 04:00 11/27/18 08:41 11/27/18 08:41 11/27/18 04:00 11/27/18 08:41 Microbiology 11/24/18 10:30 - Final Sputum, Induced/Suctioned Sputum Culture - Final Haemophilus Influenzae Laboratory Results 11/25/18 05:10 11/25/18 05:10 11/26/18 11/27/18 11/28/18 05:59 05:59 05:59 Intake Total 550 890 Output Total 2800 2000 Balance -2250 -1110 PT 13.6 SEC (12.0-15.0) 11/23/18 19:20 INR 1.08 (0.83-1.16) 11/23/18 19:20 - Physical Exam Constitutional: no apparent distress Eyes: PERRL Ears, Nose, Mouth, Throat: moist mucous membranes Cardiovascular: regular rate and rhythym Respiratory: no respiratory distress, reduced air movement (Right base), expiratory wheeze, inspiratory crackles Gastrointestinal: normoactive bowel sounds, soft, non-tender abdomen Genitourinary: no bladder fullness Skin: warm, normal color Musculoskeletal: full muscle strength Neurologic: AAOx3 Psychiatric: interacting appropriately, anxious ICD10 Worksheet Patient Problems: Problems Problem Status Onset Diabetic foot infection Acute Hyperglycemia Acute Cellulitis Acute Hyponatremia Acute Leukocytosis Acute Pseudomonas infection Acute
[2018-11-27] MEDS: oxyCODONE IR 5 MG TAB PO PRN ×3 (11:34→20:44)
[2018-11-27] MEDS: ACETYLCYSTEINE 10% IH/PO 4 ML VIAL IH SCH ×3 (15:19→22:03)
[2018-11-28] MEDS: oxyCODONE IR 5 MG TAB PO PRN ×2 (05:23→10:09)
[2018-11-28] MEDS: ACETYLCYSTEINE 10% IH/PO 4 ML VIAL IH SCH ×2 (05:40→09:43)
[2018-11-28] MEDS: INSULIN LISPRO 100 UNIT/ML SC SCH ×4 (07:32→12:57)
[2018-11-28] MEDS: predniSONE 20 MG TAB PO SCH (07:32)
[2018-11-28] MEDS: IPRATROPIUM/ALBUTEROL 3 ML DEYVIAL IH SCH (09:43)
[2018-11-28] MEDS: guaiFENesin 600 MG TAB.ER PO SCH (10:09)
[2018-11-28] MEDS: DOXYCYCLINE HYCLATE 100 MG CAP/TAB PO SCH (10:09)
[2018-11-28] MEDS: ENOXAPARIN 40 MG/0.4 ML SYR SC SCH (10:10)
[2018-11-28] MEDS: NICOTINE 21 MG/24 HR PATCH TD SCH (10:11)
--- NOTE | 2018-11-28 10:30 | HOSPPROG ---
Hospitalist Progress Note Assessment/Plan: 47-year-old homeless man admitted with increasing cough and shortness of breath. Evaluation has revealed acute infection with Haemophilus influenzae and rhino virus. # gram-negative pneumonia with Haemophilus influenzae and right lower lobe infiltrate. He also has evidence of rhino virus. * Continue appropriate antibiotics, appreciate infectious disease, * Can likely transition to orals on discharge with 3rd generation # acute COPD exacerbation with acute hypoxemic respiratory failure. Oxygen saturations have improved however he continues to have cough and difficulty clearing secretions. * Continue nebulizers * Trial of Mucomyst nebulizers caused increased chest pain and no significant improvement in secretions * Steroids did cause significantly increased blood sugars. Will DC today and follow him. # poorly controlled diabetes with hyperglycemia * Increase Lantus to twice daily dosing * Will allow regular diet given patient's noncompliance as outpatient. And risk of patient leaving AMA * DC Prednisone # hyponatremia, recheck BMP # diabetic foot infection with ulcer on plantar aspect a right 1st toe. Complete treatment with doxycycline on November 29 * MRI with no evidence of abscess or osteomyelitis * Will have wound care see tomorrow and set up any follow-up if needed, will stop doxycycline tomorrow # history of factor 5 Leiden and DVTs, IVC filter placed high risk DVT will continue Lovenox # ongoing tobacco use # homelessness, patient threatening to leave AMA and less given a regular diet. # anemia, unclear etiology but no acute bleeding noted. I suspect a lot of this is nutritional and his illnesses will refer for outpatient evaluation follow-up Likely DC in a day or 2. He does admit he will come right back and check himself into the ER if he is feeling he is not ready for discharge. Subjective: Says he feels worse than yesterday. Breathing is not moving on his right side. The Mucomyst causes him chest pain. His cough is dry and he is not bringing up anything. Objective: Vital Signs Temp Pulse Resp BP Pulse Ox 36.6 C 98 12 134/66 H 98 11/28/18 08:27 11/28/18 09:47 11/28/18 09:47 11/28/18 08:27 11/28/18 09:47 Microbiology 11/24/18 10:30 - Final Sputum, Induced/Suctioned Sputum Culture - Final Haemophilus Influenzae Laboratory Results 11/25/18 05:10 11/25/18 05:10 11/27/18 11/28/18 11/29/18 05:59 05:59 05:59 Intake Total 890 Output Total 1999 1400 Balance -1110 -1400 PT 13.6 SEC (12.0-15.0) 11/23/18 19:20 INR 1.08 (0.83-1.16) 11/23/18 19:20 - Physical Exam Constitutional: unkempt Eyes: PERRL Ears, Nose, Mouth, Throat: moist mucous membranes Cardiovascular: regular rate and rhythym Respiratory: no respiratory distress, reduced air movement (Right base), No expiratory wheeze, No inspiratory crackles Gastrointestinal: soft, non-tender abdomen Genitourinary: no bladder fullness Skin: normal color Musculoskeletal: full muscle strength Neurologic: AAOx3 Psychiatric: interacting appropriately ICD10 Worksheet Patient Problems: Problems Problem Status Onset Diabetic foot infection Acute Hyperglycemia Acute Cellulitis Acute Hyponatremia Acute Leukocytosis Acute Pseudomonas infection Acute
[2018-11-28 11:11] VITALS: BP 106/62
--- NOTE | 2018-11-28 13:58 | ASMTDCNOTE ---
Case Management Discharge Discharge Order Complete? Answers: Yes Discharge Comments Notes: Pt left AMA. CM was not able to speak with him before he left. Date Signed: 11/28/2018 01:57 PM Electronically Signed By:Virgie Cleveland
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
--- NOTE | 2018-11-29 01:09 | GDS ---
[f rep st] DISCHARGE SUMMARY DIAGNOSES: 1. Haemophilus influenzae pneumonia, right middle lobe, improving on chest x-ray, patient left again st medical advice and refused to take antibiotics, stating he would just come right back to the emerg ency room. 2. Rhinovirus. 3. Acute chronic obstructive pulmonary disease exacerbation with acute hypoxic respiratory failure. Oxygen saturations are improved and satting 96% on room air at the time of discharge. 4. Poorly controlled type 1 diabetes, takes Lantus daily, refused diabetic diet. 5. Mild hyponatremia, likely secondary to elevated sugars. 6. Diabetic foot infection with ulcer on plantar aspect. Negative MRI. Would have completed treatm ent with doxycycline tomorrow. Patient left without antibiotics. 7. History of factor V Leiden and deep venous thromboses. Inferior vena cava filter in place. 8. Ongoing tobacco use. 9. Homelessness. 10. Anemia, stable throughout the stay, likely nutritional. Patient needs followup as an outpatient as he left against medical advice. PROCEDURES DONE: 1. Chest x-rays showing improving right middle lobe infiltrate. 2. Lower extremity MRI: No evidence of osteomyelitis on his toe. CONSULTATIONS: Infectious Disease, Marta Jackson MD. HOSPITAL COURSE: The patient is a 47-year-old homeless man who was admitted with pain in his right t oe. On initial evaluation, MRI of his toe was done, which did not reveal osteomyelitis and was treat ed with doxycycline for MRSA. Again, he only needed 1 more day of treatment before he left AMA. Dur ing his hospital stay, he was also complaining of shortness of breath and had some hypoxia. Chest x-ray and sputum cultures confirmed a Haemophilus influenzae pneumonia, and he was treated with appropriate antibiotics. Initially treated with ceftriaxone, and the plan was to transfer him to or al antibiotics at the time of discharge; however, the patient left AMA and refused any further antibi otics despite the fact I was going to give him a supply to take home with him, stating he was just go ing to come back to the ER when he felt like it anyway. His diabetes was out of control throughout m ost of his stay. He is noncompliant with any dietary recommendations. He was also on prednisone, wh ich increased his blood sugars, and his Lantus was increased as well. Again, he left AMA, refusing a ny recommendations on insulin. CONDITION ON DISCHARGE: Fair. Vital signs have been stable. He is satting well on room air and rec eived some wound care while he was here in the hospital, and his toe was improving; however, the saira ent is noncompliant with wound care. He is noncompliant in the hospital and frequently leaves AMA st ating that he will just come back to the ER when he feels like getting readmitted. DISCHARGE MEDICATIONS: Please see discharge medication form. FOLLOWUP: Patient left AMA, unable to set anything up before he left the floor. Total time spent with patient today on coordination of care and [id number] visit is 35 minutes. /[id number]/MODL
== END 2018-11-28 13:34 | disposition left against medical advice (07) | DRG 420 ==
LOC: OBSVTOIN 21:31 → F2N 22:48 → F3E 11-24 21:36
PROVIDERS: ADMIT Internal Medicine; ATTEND Internal Medicine
DX: E10.621 Type 1 diabetes mellitus with foot ulcer (principal); J96.01 Acute respiratory failure with hypoxia; J14 Pneumonia due to Hemophilus influenzae; L03.031 Cellulitis of right toe; Z53.21 Procedure and treatment not carried out due to patient leaving prior to being seen by health care provider; B95.62 Methicillin resistant Staphylococcus aureus infection as the cause of diseases classified elsewhere; E86.9 Volume depletion, unspecified; E10.65 Type 1 diabetes mellitus with hyperglycemia; B97.89 Other viral agents as the cause of diseases classified elsewhere; J44.1 Chronic obstructive pulmonary disease with (acute) exacerbation; D68.2 Hereditary deficiency of other clotting factors; E87.1 Hypo-osmolality and hyponatremia; Z59.0 Homelessness; Z72.0 Tobacco use; Z86.718 Personal history of other venous thrombosis and embolism; Z86.14 Personal history of Methicillin resistant Staphylococcus aureus infection; Z91.14 Patient's other noncompliance with medication regimen; Z79.84 Long term (current) use of oral hypoglycemic drugs
CPT/HCPCS: 96365; A9585; J0295; J0696; J1650; J1815; J2543; J3370; J3480; J7512

== ENCOUNTER 2018-12-07 11:20 | Emergency (ER) | payer MEDICAID ==
[2018-12-07 11:28] VITALS: BP 113/84
--- NOTE | 2018-12-07 12:00 | EDPHY ---
HPI/HX/ROS/PE/MDM Narrative: CHIEF COMPLAINT:"I feel bad all over." HPI: The patient is a 47-year-old male with a history of homelessness, chronic diabetic toe infection, uncontrolled diabetes and COPD. He was recently hospitalized at this hospital and left AMA several days ago. He returns to the emergency department stating that his shortness of breath is worse. He has been changing the dressings on his toe himself. He denies fever. He denies chest pain. REVIEW OF SYSTEMS: Aside from elements discussed in the HPI, a comprehensive 10-point review of systems was reviewed and is negative. PMH: Homelessness, uncontrolled diabetes SOCIAL HISTORY: Homeless PHYSICAL EXAM: General:Patient is alert, in no acute distress. ENT:Eyes are normal to inspection. ENT inspection normal. Neck: Normal inspection. Full range of motion. Respiratory:No respiratory distress. Scattered wheezes are noted. Cardiovascular: Regular rate and rhythm. Strong peripheral pulses. Normal cap refill. Abdomen:The abdomen is nontender to palpation. There are no peritoneal signs. There are normal bowel sounds. Back: Normal to inspection. No tenderness to palpation. Skin: Normal color. No rash. Warm and dry. Multiple tattoos. Extremities: A skin ulcer is present on the medial aspect of the right great toe. There is no discharge from this wound nor any surrounding cellulitis. Neuro: Oriented x3. Normal motor function. Normal sensory function. MDM: This patient presents with ongoing shortness of breath and chronic complaints. I explained to him that his vital signs look normal and that we would be happy to help him obtain primary care follow-up and ensure that his wound is dressed well, but that I did not see indication for emergent rehospitalization. He became very upset at this and asked to be transferred to another hospital. I explained to him that this was both impossible and legal. He then stated that if we discharged him he would "camp out in your parking lot until I receive a trespassing ticket." Prior to allowing us to re-dress his wound or provide any resources, the patient states that he plans on leaving the emergency department , again against medical advice and refuses further care. Refuses to sign an AMA form. I performed a thorough medical exam on this patient, and no emergency medical condition exists. General Time Seen by Provider: 12/07/18 11:30 Initial Vital Signs: Initial Vital Signs Heart Rate 111 H 12/07/18 11:26 Respiratory Rate 18 12/07/18 11:26 Blood Pressure 113/84 H 12/07/18 11:26 O2 Sat (%) 98 12/07/18 11:26 O2 Delivery Mode Room Air Allergies/Adverse Reactions: No Known Allergies Allergy (Verified 12/07/18 11:25) Departure - Departure Disposition: Against Medical Advice Clinical Impression: Dyspnea Condition: Good Referrals: NONE *PRIMARY CARE P,. [Primary Care Provider] - As per Instructions
== END 2018-12-07 12:07 | disposition left against medical advice (07) ==
DX: R06.00 Dyspnea, unspecified (principal); J44.9 Chronic obstructive pulmonary disease, unspecified; E11.9 Type 2 diabetes mellitus without complications; Z59.0 Homelessness